=== PATIENT | female | born 1970 | race Two or more races ===

== ENCOUNTER 2024-11-11 09:55 | Outpatient (OUT) | payer MEDICAID, SELFPAY ==
--- NOTE | 2024-11-11 10:23 | XR_ITS ---
[place] [id number] Patient Name: BRADFORD RIVERA MRN: [id number] date: 1970 Sex: F Assigned Patient Location: LAB Current Patient Location: LAB Accession/Order Number: [id number] Exam Date: 11/11/2024 23:11 Report Date: 11/11/2024 23:12 At the request of: MATEO OROZCO MD Procedure: XR chest 2V Chest 2 views CLINICAL HISTORY: Chronic Cough, Dyspnea , Epigastric Pain COMPARISON: None FINDINGS: Heart normal size. Lungs are clear. No free air. XR/XR chest 2V IMPRESSION: NO ACUTE CARDIOPULMONARY ABNORMALITY. Impression dictated by: Dequan Lopez Jr., D.ORaymundo11/11/2024 11:12 PM Dictation Location: [facility]18 Electronically authenticated by: [id number] Y Date: 11/11/2024 23:12
[2024-11-11 10:32] LABS: Basophils Percent Auto 0.3 % (0.2-2.0); Eosinophils Absolute Auto 0.1 10^3/uL (0.0-0.7); Eosinophils Percent Auto 0.7 % (0.9-7.0); Hematocrit 40.9 % (36.0-48.0); Hemoglobin 13.3 g/dL (12.0-16.0); Immature Granulocytes Abs Auto 0.01 10^3/uL (0.00-0.03); Immature Granulocytes Pct Auto 0.1 % (0.0-0.5); Lymphocytes Absolute Auto 1.9 10^3/uL (1.2-3.8); Lymphocytes Percent Auto 27.6 % (20.5-60.0); Mean Corpuscular HGB Conc 32.5 g/dL (29.9-35.2); Mean Corpuscular Hemoglobin 28.1 pg (26.7-34.0); Mean Corpuscular Volume 86.5 fL (81.0-99.0); Mean Platelet Volume 10.1 fL (9.5-13.5); Monocytes Absolute Auto 0.3 10^3/uL (0.3-0.8); Monocytes Percent Auto 4.8 % (1.7-12.0); Neutrophils Absolute Auto 4.5 10^3/uL (1.4-6.5); Neutrophils Percent Auto 66.5 % (43.0-75.0); Platelet Count 243 10^3/uL (150-450); Red Blood Count 4.73 10^6/uL (4.20-5.40); Red Cell Distribution Width 12.9 % (11.0-15.0); White Blood Count 6.7 10^3/uL (4.0-11.0)
[2024-11-11 11:22] LABS: Alanine Aminotransferase 15 U/L (14-59); Albumin Globulin Ratio 1.1; Alkaline Phosphatase 63 U/L (46-116); Anion Gap 13.7; Aspartate Amino Transferase 16 U/L (15-37); BUN Creatinine Ratio 16.9; Bilirubin Total 0.3 mg/dL (0.2-1.0); Calcium 9.3 mg/dL (8.5-10.1); Carbon Dioxide 27.3 mmol/L (21.0-32.0); Chloride 105 mmol/L (98-107); Chol HDL Ratio 3.8; Cholesterol 195 mg/dL (<=200); Estimated GFR (African America >60 (>=60 mL/min/1.73m^2); Estimated GFR (Non-African Ame >60 (>=60 mL/min/1.73m^2); Free T3 3.02 pg/mL (2.18-3.98); Globulin 3.8 g/dL; Glucose 105 mg/dL (74-106); HDL Cholesterol 51 mg/dL (40-60); LDL Cholesterol Calculated 119.8 mg/dL; Sodium 142 mmol/L (136-145); Thyroid Stimulating Hormone 2.782 uIU/mL (0.358-3.740); Total Protein 7.8 g/dL (6.4-8.2); Triglycerides 121 mg/dL (<=150); VLDL CHOLESTEROL 24.2 mg/dL
[2024-11-11 14:40] LABS: Estimated Average Glucose 123 mg/dL; Glycohemoglobin A1C 5.9 % (4.5-6.2)
[2024-11-13 08:08] LABS: QuantiFERON-TB Gold Plus Negative (Negative)
== END 2024-11-11 09:56 | disposition home or self-care (01) ==
LOC: LAB 10:04
PROVIDERS: PCP Family Medicine; Visit Provider Family Medicine
DX: R05.3 Chronic cough (principal); R06.00 Dyspnea, unspecified; F32.9 Major depressive disorder, single episode, unspecified; R10.13 Epigastric pain; E78.5 Hyperlipidemia, unspecified; R73.09 Other abnormal glucose; D64.9 Anemia, unspecified; E55.9 Vitamin D deficiency, unspecified
CPT/HCPCS: 36415; 71046; 80053; 80061; 82306; 83036; 83540; 84436; 84443; 84481; 85025; 86480

== ENCOUNTER 2025-04-10 07:18 | Outpatient (OUT) | payer MEDICAID, SELFPAY ==
--- OUTSIDE RECORDS SUMMARY | 2012-11-10 12:00 | XMS_ITS | Encounter Summary ---
Author Organization [facility] Address [address] [place] [address] Care Team Providers Care Vault Clerk Name Role Phone Pcp, Edyta NETEZZA DEVELOPER Primary Care Provider Unavailabl e Source Comments In the event this information is protected by the Federal Confidentiality of Alcohol and Drug AbusePatient Records regulations: The Federal rules restrict any use of the information to criminally investigate or prosecute any alcohol or drug abuse patient.[facility] Encounter Details Date Type Department Care Team (Late st Contact Info) Description 11/10/2012 11:00 AM EST Hospital Encounter Gynecology [address] [address] Macarena Rai MD [address] [place] [address] Social History Tobacco Use Types Packs/Day Years [...] on filedocumented in this encounter Care Teams Vault Clerk Relationship Specialty Start Date End Date Pcp, No, NICOLA PCP - General 10/12/12 05/09/13 documented as of this encounter
--- OUTSIDE RECORDS SUMMARY | 2023-05-02 05:00 | XMS_ITS | Continuity of Care Document ---
Author Organization [facility] Address [address] [place] [address] Phone Care Team Providers Care Application Packaging Specialist Name Role Phone Tiffany RODGERS, Quinn Unavailable Unavailable Allergies, Adverse Reactions, Alerts Substance Reaction Status Criticality No Known Allergies Active No Inform ation Medications Medication Instructions Dosage Effective Dates (start - stop) Status Comments omeprazole 40 mg capsule,delayed release take 1 capsule by oral route every day before a meal 40 MG - No Longer Active Procedures Procedure Date Panoramic Film Oral Hygiene Instruction Limited Oral Eval Extract; Erupted Th/exposted Rt 015 Extract; Erupted Th/exposted Rt 015 Comp Oral Eval New/estab Patient 2014 Intraoral-complete Series (bw) 15 Advance Directives Directive Yes / No Effective Date File Name No Information Encounters Encounter Description Practice Location Reason(s) For Visit Diagnoses Date Provider Providers Copied on Encounter [facility], [address] [place] [address], [id number], tel:[phone] Dental Clinic DN (chief complaint) Encounter for screening for dental disorders Tiffany Teresaal. [address] [place] [address], [id number], [place]. tel:[phone] [facility], [address] [place] [address], [id number], tel:[phone] Dental Clinic Dental exam Ajay RODGERS Yvette. [address] [place], [place], [id number], [place]. tel:[phone] [facility], [address] [place], [place], [id number], [place] tel:[phone] Dental Clinic Dental exam Ajay DMD Yvetet. [address] [place] [address], [place], [id number], [place]. tel:[phone] Family History Family Member Type Diagnosis Age At Onset Mother Problem (finding) Alive and well Father Problem (finding) Alive and well Payers Payer name Insurance type Covered democrat ID Jack prieto(s) [employer] [place] [id number] Social History Type Description Quantity Date Captured Comments Alcohol Use Details Unknown Caffeine Use Details Unknown Tobacco Use Status Never smoked tobacco 2022 Smoking Status Never smoker Non-Smoking Tobacco Use Details : No Details Available : No Details Available Sex Female Sexual Orientation Straight or heterosexual Gender Identity Female Chief Complaint And Reason For Visit From encounter dated '05/02/2023 09:00'. DN (chief complaint) Reason For Referral Reason For Referral No Information Plan Of Treatment Date Type Action Status Goal Tdap Vaccine. Due on 2022 due Goal Colonoscopy. Due on due Goal Depression screening. Due on due Goal PRAPARE ASSESSMENT. Due on A due Goal FOBT. Due on due Goal Zoster vaccine (1st). Due on due Goal Tdap. Due on due Goal Mammogram. Due on due Goal Influenza vaccine. Due on due Goal Lipid panel. Due on 023 due History Of Present Illness Encounter Date Complaint History Of Prese nt Illness DN Functional Status Date Functional Assessmen t No Information Instructions Date Instruction Additional Infor mation No Information Assessments Type Assessment Date No Information Patient Care Teams Name Effective Dates (start - stop) Status Members No Information
--- OUTSIDE RECORDS SUMMARY | 2023-12-30 10:30 | XMS_ITS ---
Author Organization [facility] Address [address] [facility] [address] [facility] [place] [address] Care Team Providers Care Putty Worker Name Role Phone Ayah Willingham Primary Care Provider [phone] REASON FOR VISIT DISCUSS BLOOD WORK Social History Sex Assigned At : Social History Observation Description Sex Assigned At Female Encounters Encounter Location Date Provider Diagnosis [address] [place] [address] 12/30/2023 Ayah Willingham Plan Of Treatment No Information Progress Notes * MARIBEL RIVERA MINDOB:1970 (54 yo F)Acc No.[id number]:12/30/2023 Progress Notes Patient: MARIBEL WILKINSON Provider: Rakan Willingham CNP :1970 A ge:53 Y S ex:Female Date:12/30/2023 Address:[address] [place], [place] [id number] Subjective: * Chief Complaints: * 1 . DISCUSS BLOOD WORK. * Medical History: Objective: * Vitals: Assessment: Plan: * Treatment: * Images: * Electronic signature of Jennifer Willingham CNP on 04/10/2025 at 07:20 AM EDT Sign off status: Pending * Provider: Rakan Willingham CNP Date: 0 12/30/2023 Generated for Printi ng/Fareginaldog/eTransmitting on: 0 04/10/2025 07:20 AM EDT
--- OUTSIDE RECORDS SUMMARY | 2024-01-07 06:30 | XMS_ITS ---
Author Organization [facility] Address [address] [facility] [place] [place] [address] Care Team Providers Care Working Second Hand Name Role Phone Ayah Willingham Primary Care Provider [phone] REASON FOR VISIT well woman, go over labs Social History Sex Assigned At : Social History Observation Description Sex Assigned At Female Encounters Encounter Location Date Provider Diagnosis [facility] [address] [facility] [address] 01/07/2024 Ayah Willingham Plan Of Treatment No Information Progress Notes * MARIBEL RIVERA MINDOB:1970 (54 yo F)Acc No.[id number]:01/07/2024 Progress Notes Patient: MARIBEL WILKINSON Provider: aRkan Willingham CNP :1970 A ge:53 Y S ex:Female Date:01/07/2024 Address:[address] [place], [place] [id number] Subjective: * Chief Complaints: * 1 . Well woman, go over labs. * Medical History: Objective: * Vitals: Assessment: Plan: * Treatment: Care Plan: * Problems: * Images: * Electronic signature of Jennifer Willingham CNP on 04/10/2025 at 07:21 AM EDT Sign off status: Pending * Provider: Rakan Willingham CNP Date: 0 01/07/2024 Generated for Shania keyes/Jailene/eTransmitting on: 0 04/10/2025 07:21 AM EDT
--- OUTSIDE RECORDS SUMMARY | 2025-03-05 10:14 | XMS_ITS ---
Author Organization [facility] [place] Address [address] [place] [address] Care Team Providers Care Flat Machine Cutter Name Role Phone JosePaulino negrete Primary Care Provider Reason For Referral Diagnosis 1 Polyp of descending colon, unspecified type (K63.5) Referral Organization [facility] Referring Provider First Name Paulino Referring Provider Last Name Wu [facility] Referred Provider Juventino Bowen Referred Provider Specialty General Surg marcia Referral Priority Routine REASON FOR VISIT Colonoscopy Encounters Encounter Location Date Provider Diagnosis [facility] [address] [place] [address] 03/05/2025 Paulino Washburn Polyp of descending colon, unspecified type K63.5 Assessments Encounter Date Diagnosis (ICD Code) Assessment Notes Treatment Notes Treatment Clinical Notes Section Notes 03/05/2025 Polyp of descending colon, unspecified type (ICD-10 - K63.5) Plan Of Treatment Referrals Referral Date Details 03/10/2025 03/10/2025, Juventino Bowen Next Appt Details Provider Name:Paulino Washburn, 01:45:00 PM, [address] [place], [address], Progress Notes * Alejandra CRISTOBALinDOB:1970 (54 yo F)Acc No.[id number]:03/05/2025 Patient: Anya CHRISTYMaria Luisapeter :1970 A ge:54 Y S ex:Female Address:[address] [place] [address], [address] Subjective: * Chief Complaints: * C olonoscopy * Medical History: * Surgical History: * Hospitalization/Major Diagno stic Procedure: * Medications: Objective: * Vitals: * Physical Examination: Assessment: * Assessment: 1. P olyp of descending colon, unspecified type - K63.5 (Primary) Plan: * Treatment: * Procedure Codes: * true * Date: Generated for Shania keyes/Jailene/eTransmitting on: 0 04/10/2025 07:21 AM EDT Consultation Request Notes Referral Date Referring Provider Referred Provider Not es 03/10/2025 Paulino Washburn Michael
--- OUTSIDE RECORDS SUMMARY | 2025-04-08 09:00 | XMS_ITS ---
Author Organization [facility] in [place] Address [address] [place] [address] Care Team Providers Care Industry Analyst Name Role Phone Paulino Washburn Primary Care Provider Allergies No Known Allergies REASON FOR VISIT productive cough- yellow, pain in chest when breath, chest pressure- not sleeping well, Took Ibuprofen this AM Medications Medication SIG (Take, Route, Frequency, Duration) Notes Start Date End Date Status predniSONE 20 MG 2 tablets Orally Onc e a day for 5 days 04/08/2025 Active Protonix 40 MG 1 tablet Orally Once a day for 30 days 11/10/2024 Active traZODone HCl 50 MG TAKE 1 TABLET BY MARIANO TH AT BEDTIME Oral for 30 Days Active levoFLOXacin 750 MG 1 tablet Orally Once a day for 10 day(s) 04/08/2025 Active Breo Ellipta 100-25 MCG/ACT 1 puff Inhal ation Once a day 11/10/2024 Active Aspirin 81 81 MG 1 tablet Orally Once a day for 30 day(s) 04/08/2025 Active FLUoxetine HCl 20 MG Oral for 30 Days Active ARIPiprazole 30 MG Oral for 30 Days Active Social History Tobacco Use: Social History Observation Description Date Details (start date - stop date) Never Smoker NA - NA Tobacco Control (Standard) Question Answer Notes Tobacco use: Nonsmoker Vital Signs Blood pressure systolic 124 mm Hg 04/08/20 25 Blood pressure diastolic 80 mm Hg 025 Height 62 in 04/08/2025 Weight 130.2 lbs 04/08/2025 BMI 23.81 kg/m2 04/08/2025 Oximetry 98 % 04/08/2025 Procedures Procedure Date Ordered Date Performed Result Body Sit e CARDIO Stress Test - Cardiolite 04/08/2025 N/A Encounters Encounter Location Date Provider [facility] [address] [place] [address] 04/08/2025 Paulino Washburn Acute bronchitis J20 .9 and Chest pain R07.9 Assessments Encounter Date Diagnosis (ICD Code) Assessment Notes Treatment Notes Treatment Clinical Notes Section Notes 04/08/2025 Acute bronchitis (ICD-10 - J20.9) 04/08/2025 Chest pain (ICD-10 - R07.9) stared on asa a dya and arraing ing stress testing Plan Of Treatment Medication Medication Name Sig Start Date Stop Date Notes predniSONE 20 MG 2 tablets Orally Once a day for 5 days levoFLOXacin 750 MG 1 tablet Orally Once a day for 10 day(s) 04/08/2025 Aspirin 81 81 MG 1 tablet Orally Once a day for 30 day(s) 04/08/2025 Treatment Notes Assessment Notes Chest pain stared on asa a dya and arraing ing stress testing Pending Test Test Name Order Date CARDIO Stress Test - Cardiolite 04/08/20 25 High Sensitivity Troponin 04/08/2025 BNP 04/08/2025 CBC AUTO DIFF 04/08/2025 PROF 14(COMP METB) 04/08/2025 THYROID PANEL (T4/TSH/FREE T3) Next Appt Details Provider Name:Paulino Washburn, 01:45:00 PM, [address] [place], [address], Progress Notes * Alejandra CRISTOBALinDOB:1970 (54 yo F)Acc No.[id number]:04/08/2025 UNLOCKED PROGRESS NOTE Progress Note Patient: Stefany WILKINSON Provider: Priyanka Washburn ([facility])MD :1970 A ge:54 Y S ex:Female Date:04/08/2025 Address:[address] [place], [place] [id number] Check In:01:04 PM ESTCheck O ut:02:06 PM EST Subjective: * Chief Complaints: * 1 . Productive cough- yellow, pain in chest when breath, chest pressure- not sleeping well. 2. Took Ibuprofen this AM. * HPI: G eneral: cough with chest pain wth anreaditing into back - yellpow sputum started last week - prog getteoing worse. * ROS: E ENT: hearing changes d enies. v isual changes d enies.?non-healing mouth sores d enies. s wollen glands or neck lumps d enies. h oarseness d enies. s ore throat d enies. d ifficulty swallowing d enies. n ose bleeds d enies. n ellis congestion d enies. e ar ache d enies. e ar discharge?denies. r inging in ears d enies. l ight sensitivity d enies. e ye pain d enies. b lurring d enies. e ye irritation d enies. d ouble vision d enies.?vision loss d enies. G eneral/Constitutional: Sweats: D enies. F atigue d enies. S leep problems d enies. A norexia d enies. M alaise d enies. W eight loss d enies.?Fatigue or Weakness d enies. F ever or Chills d enies. C ardiovascular: Shortness of Breath w/lying flat d enies. L ightheadedness/dizziness d enies. C hest tightness/ heavy pressure d enies. S welling of legs, ankles, or feet d enies. W aking up with shortness of breath d enies. C hest pain denies. P alpitations d enies. W eight gain d enies. R espiratory: Chronic or frequent cough d enies. C oughing up blood?denies. D ifficulty breathing d enies. P roductive cough d enies. S noring?denies. S hortness of breath that awakens from sleep (PND) d enies. C hest pain d enies. S putum production d enies. W heezing d enies. M usculoskeletal: Joint pain d enies. J oint Fluid d enies. B ack pain d enies. K nee pain d enies. N mitesh pain d enies. J oint Stiffness d enies. M uscle cramps d enies. W eakness of muscles d enies. A rthritis d enies. M uscle aches d enies. P ain in shoulder(s) d enies. S wollen joints d enies. * Medical History: M edical History Verified. * Surgical History: D enies Past Surgical History. * Hospitalization/Major Diagno stic Procedure: D enies Past Hospitalization. * Family History: M other: alive, bipolar, depression. * Social History: T obacco Use: T obacco Control (Standard) T obacco use: N onsmoker * Medications: T aking ARIPiprazole 30 MG Tablet Oral , Taking Breo Ellipta(Fluticasone Furoate-Vilanterol) 100-25 MCG/ACT Aerosol Powder Breath Activated 1 puff Inhalation Once a day , Taking FLUoxetine HCl 20 MG Capsule Oral , Taking Protonix(Pantoprazole Sodium) 40 MG Tablet Delayed Release 1 tablet Orally Once a day , Taking traZODone HCl 50 MG Tablet TAKE 1 TABLET BY MOUTH AT BEDTIME Oral , Discontinued predniSONE 10 MG Tablet 5 tabs per day for 3 days, 4 tabs per day for 3 ays, 3 tabs perday for 3 days, 2 tabs per day for 3 days, 1 tab a day for 3 days, 1/2 tab a day for 4 days Orally Once a day , Medication List reviewed and reconciled with the patient * Allergies: N .K.D.A. Objective: * Vitals: W t:130.2lbs, Ht: 62 in, BP:124/80mm Hg, BMI:23.81Index, Oxygen sat %:98%, Ht-cm: 157.48 cm, Wt-k.06 kg. * Examination: P hysical Exam: GENERAL: w ell developed, well nourished, in no acute distress. HEAD: n ormocephalic/atraumatic. EYES: p upils equal, round and reactive to light, conjunctivae and sclerae normal. EARS: n o deformity or lesion of external ear, canals and TM appear normal bilaterally, TM's intact, not inflamed with normal light reflex, hearing grossly normal to conversational speech. NOSE: n o deformity, discharge, inflammation, or lesions.? MOUTH: m ucous membranes moist, normal oropharynx and posterior pharynx without lesions or exudates, tongue normal, dentition normal. NECK: n mitesh supple, no masses or palpable cervical nodes, trachea midline, thyroid without nodules, masses, tenderness, or enlargement. CHEST: n o chest wall deformity, no chest wall tenderness.? LUNGS: n ormal respiratory effort and clear to auscultation, no wheezes, rales, or rhonchi, good air exchange. CARDIO: r egular rate and rhythm, normal S1 and S2, nor murmur, rub, or gallop. PULSES: n ormal capillary refill. ABDOMEN: s oft, non-distended, non-tender, no masses. MUSCULOSKELETAL: n o deformity or scoliosis noted, normal range of motion, joints normal, no erythema, edema, effusion, or ecchymosis. EXTREMITY: n o clubbing, cyanosis, edema, or deformity with normal ROM in both upper and lower bilateral extremities. NEUROLOGIC: g rossly normal. SKIN: n o rashes, ulcerations, or suspicious lesions. LYMPH NODES: n o cervical adenopathy, nodes normal. MENTAL STATUS: a lert and oriented x3, normal mood and affect. Assessment: * Assessment: 1. A cute bronchitis - J20.9 (Primary) 2 . C hest pain - R07.9 ? Plan: * Treatment: 2.?Chest pain?Procedure: CARDIO Stress Test - Cardiolite* abn ecg with posssible ant w all ischemia Notes: stared on asa a dya and arraing ing stress testing??3.?Others? Start levoFLOXacin Tablet, 750 MG, 1 tablet, Orally, Once a day, 10 day(s), 10;?Start predniSONE Tablet, 20 MG, 2 tablets, Orally, Once a day, 5 days, 10 Tablet.?? * Procedures: P osible ant wall ischemia with T wave inversion and 2/3 lead for inf wall ischemia. * * Electronic signature of Paulino Washburn MD, [phone] on 04/10/2025 at 07:21 AM EDT Sign off status: Pending Visit Status: C HK (Check Out) * Provider: Priyanka Washburn ([facility])MD Date: 0 04/08/2025 Generated for Printi ng/Faxing/eTransmitting on: 0 04/10/2025 07:21 AM EDT History and Physical Notes * HPI (History of Present Illness) Category Sub-Category Detail Notes Category Not es General cough with chest pain wth anreaditing into back - yellpow sputum started last week - prog getteoing worse Examination Category Sub-Category Detail Notes Category Not es Physical Exam GENERAL: well developed, well nourished, in no acute distress HEAD: normocephalic/atraum atic EYES: pupils equal, round and reactive to light, conjunctivae and sclerae normal EARS: no deformity or lesi on of external ear, canals and TM appear normal bilaterally, TM's intact, not inflamed with normal light reflex, hearing grossly normal to conversational speech NOSE: no deformity, discha rge, inflammation, or lesions MOUTH: mucous membranes lash[address] st, normal oropharynx and posterior pharynx without lesions or exudates, tongue normal, dentition normal NECK: neck supple, no mass es or palpable cervical nodes, trachea midline, thyroid without nodules, masses, tenderness, or enlargement CHEST: no chest wall deform ity, no chest wall tenderness LUNGS: normal respiratory e ffort and clear to auscultation, no wheezes, rales, or rhonchi, good air exchange CARDIO: regular rate and rhy thm, normal S1 and S2, nor murmur, rub, or gallop PULSES: normal capillary ref ill ABDOMEN: soft, non-distended, non-tender, no masses RECTAL: MUSCULOSKELETAL: no deformity or scol iosis noted, normal range of motion, joints normal, no erythema, edema, effusion, or ecchymosis EXTREMITY: no clubbing, cyanosi s, edema, or deformity with normal ROM in both upper and lower bilateral extremities NEUROLOGIC: grossly normal SKIN: no rashes, ulceratio ns, or suspicious lesions LYMPH NODES: no cervical adenopat hy, nodes normal MENTAL STATUS: alert and oriented x 3, normal mood and affect
--- OUTSIDE RECORDS SUMMARY | 2025-04-10 07:21 | XMS_ITS | CCD ---
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 Name Role Phone [facility] Primary Care Provider [phone] CLAUDETTE Willingham Attending Pr ovider [facility] Primary Care Provider [phone] CLAUDETTE Willingham Attending Pr ovider MD Markus Luo Attending Provider Alissa Lopez Unavailable [facility] Primary Care Provider CLAUDETTE Willingham Attending Pr ovider MD Yossi Marcial Attending Provider [phone] Michael [facility] Namita Haque Emergency Provider [phone] [facility] Primary Care Provider [phone] NICOLA Briceño Attending Provider [phone] MD Yossi Marcial Attending Provider FRANSISCA MENDEZ Attending Unavailable GENERIC PROVIDER, NO ASSIGNED PCP Primary Care Unavailable MD Yossi Marcial Attending Provider MD Yossi Marcial Attending Provider MD Yossi Marcial Attending Provider DO Ranjan Brown Emergency Provider NO FAMILY, PHYSICIAN Primary Care Provider Unava ilable MD Yossi Marcial Admit Provider MD Yossi Marcial Attending Provider Generic Provider , No Assigned Pcp Primary Car e Provider Unavailable Kevin [facility] Emergency Provider NO FAMILY, PHYSICIAN Primary Care Provider Unava ilable Yossi Marcial MD Admit Provider Yossi Marcial MD Attending Provider Briceñopebbles PETERSEN Melvi Priyanka Attending Provider [phone] [facility] Primary Care Provider Yossi Marcial Admitting Unavailab le Yossi Marcial Attending Unavailab le [facility] Primary Care Unavaila ble Briceño, Melvi D Admitting Unavailable NO FAMILY, PHYSICIAN Primary Care Unavailable Briceño, Melvi D Attending Unavailable Briceño, Melvi D Admitting Unavailable NO FAMILY, PHYSICIAN Primary Care Unavailable Briceño, Melvi D Attending Unavailable Briceño, Melvi D Attending Unavailable Briceño, Melvi D Admitting Unavailable [facility] Primary Care Unavaila ble Yossi Marcial Attending Unavailab le Yossi Marcial Admitting Unavailab le NO FAMILY, PHYSICIAN Primary Care Unavailable Briceño, Melvi D Attending Unavailable Briceño, Melvi D Admitting Unavailable [facility] Primary Care Unavaila ble Briceño, Melvi D Admitting Unavailable [facility] Primary Care Unavaila ble Briceño, Melvi D Attending Unavailable Briceño, Melvi D Attending Unavailable Briceño, Melvi D Admitting Unavailable [facility] Primary Care Unavaila ble Bullimore, Namita E Admitting Unavailable Bullimore, Namita E Attending Unavailable [facility] Primary Care Unavaila ble Briceño, Melvi D Admitting Unavailable NO FAMILY, PHYSICIAN Primary Care Unavailable Briceño, Melvi D Attending Unavailable Allergies Allergy Classification Reported Allergen(s) Allergy Type Date of Onset Reaction(s) Facility (15 sources) Penicillins; Translations: [PENICILLINS] Allergy to substance 9 [facility] (1 source) Penicillin G Drug Allergy passed out [facility] Other (10 sources) Penicillin G Procaine; Translations: [penicillin G procaine] Allergy to substance passed out [facility] Medications Current Medications Medication Drug Class(es) Dates Sig (Normalized) Sig (Original) acetaminophen 325 mg oral tablet (1 source) Start: 04-27-2024 End: 05-07-2024 take 2 tablets by mouth every six hours for pain acetaminophen (Tylenol) 325 mg tablet Indications: COVID Take 2 tablets (650 mg) by mouth every 6 hours if needed for mild pain (1 - 3) for up to 10 days. 30 tablet 04/27/2024 05/07/2024 Active ARIPiprazole 2 mg oral tablet (3 sources) Atypical Antipsychotic Start: 06-20-2024 take 1 tablet by mouth once daily at bedtime Aripiprazole 2 mg Tablet Active 2 MG PO Daily at bedtime June 19, 2024 11:00pm doxepin hydrochloride 10 mg oral capsule (1 source) Tricyclic Antidepressant Start: 01-15-2022 take 1 capsule by mouth every twenty-four hours Doxepin HCl 10 MG 1 capsule at bedtime Orally Once a day for 30 day(s) January, Active FLUoxetine 20 mg oral capsule (20 sources) Serotonin Reuptake Inhibitor Start: 10-19-2019 take 1 capsule by mouth once daily Fluoxetine 20 mg capsule Active 20 MG PO Daily October 19, 2019 12:00am Start: 01-01-2019 End: 01-01-2019 Fluoxetine 20 mg capsule Dis continued December 31, 2018 11:00pm January 01, 2019 8:57am Start: 01-01-2019 End: 01-01-2019 Fluoxetine Discontinued Apri l 2018 12:00am January 01, 2019 9:57am ibuprofen 600 mg oral tablet (9 sources) Nonsteroidal Anti-inflammatory Drug Start: 04-27-2024 take 1 tablet by mouth every eight hours for pain ibuprofen 600 mg tablet Indications: COVID Take 1 tablet (600 mg) by mouth every 8 hours if needed for mild pain (1 - 3) or fever (temp greater than 38.0 C). 30 tablet 04/27/2024 Active Start: 04-04-2024 End: 06-17-2024 take 1 tablet by mouth every six hours as needed for pain Ibuprofen 600 mg tablet Discontinued 600 MG PO Q6H as needed for fever or pain April 03, 2024 11:00pm June 17, 2024 8:11pm lidocaine 0.05 mg/mg medicated patch (8 sources) Antiarrhythmic, Amide Local Anesthetic Start: 04-04-2024 apply 1 dose topically once daily as needed for pain Lidocaine 5 % adhesive patch,medicated Active 1 PATCH TOPICAL Daily as needed for pain April 03, 2024 11:00pm leave on most painful area for up to 12 hrs ondansetron 4 mg disintegrating oral tablet (2 sources) Serotonin-3 Receptor Antagonist Start: 04-27-2024 End: 05-01-2024 take 1 tablet by mouth every eight hours for nausea ondansetron ODT (Zofran-ODT) 4 mg disintegrating tablet Indications: COVID Take 1 tablet (4 mg) by mouth every 8 hours if needed for vomiting or nausea for up to 4 days. 12 tablet 04/27/2024 05/01/2024 Active Start: 04-27-2024 End: 04-27-2024 4 mg, intravenous, Once, On Sat04/27/24 at 0115, For 1 dose, When administering via IV Push, administer over 3-5 minutes. traZODone hydrochloride 50 mg oral tablet (12 sources) Serotonin Reuptake Inhibitor Start: 10-19-2019 Trazodone 50 mg tablet Active 25 MG PO Bedtime as needed for insomnia October 19, 2019 12:00am Start: 10-19-2019 take 25 mg by mouth at bedtime Trazodone Active 25 MG PO Bedtime October 19, 2019 1:00am Start: 10-19-2019 Trazodone Acti ve TABLET October 19, 2019 1:00am Completed/Discontinued Medications Medication Drug Class(es) Dates Sig (Normalized) Sig (Original) calcium chloride 0.0014 meq/ml / potassium chloride 0.004 meq/ml / sodium chloride 0.103 meq/ml / sodium lactate 0.028 meq/ml injectable solution (1 source) Start: 04-27-2024 End: 04-27-2024 1,000 mL, intravenous, at 999 mL/hr, Administer over 1 Hours, Once, On Sat04/27/24 at 0000, For 1 dose dicyclomine hydrochloride 20 mg oral tablet (12 sources) Anticholinergic Start: 01-20-2019 End: 06-17-2024 take 1 tablet by mouth twice daily Dicyclomine 20 mg Tablet Discontinued 20 MG PO Twice daily January 19, 2019 11:00pm June 17, 2024 8:12pm 12 hr hyoscyamine sulfate 0.375 mg extended release oral tablet (1 source) Start: 06-29-2020 take 1 tablet by mouth every twelve hours Hyoscyamine Sulfate ER 0.375 MG 1 tablet Orally every 12 hrs for 30 day(s) Jun, Not-Taking 1 ml ketorolac tromethamine 30 mg/ml injection (1 source) Nonsteroidal Anti-inflammatory Drug, Cyclooxygenase Inhibitor Start: 04-27-2024 End: 04-27-2024 15 mg, intravenous, Once, On Sat04/27/24 at 0000, For 1 dose [facility] (1 source) [facility] Not-Taking omeprazole 40 mg delayed release oral capsule (13 sources) Proton Pump Inhibitor Start: 10-30-2019 take 1 capsule by mouth every twenty-four hours Omeprazole 40 MG 1 capsule Orally Once a day for 30 day(s) Oct, Not-Taking Start: 10-19-2019 take 1 capsule by mo [facility] once daily Omeprazole 20 mg capsule,delayed release(DR/EC) Active 20 MG PO Daily October 19, 2019 12:00am Start: 10-19-2019 Omeprazole Act kaela October 19, 2019 1:00am sucralfate 1000 mg oral tablet (13 sources) Aluminum Complex Start: 10-19-2019 End: 06-17-2024 Sucralfate 1 gram tablet Discontinued TABLET October 19, 2019 12:00am June 17, 2024 8:11pm Start: 10-19-2019 End: 06-17-2024 Sucralfate Discontinued TABL ET October 19, 2019 1:00am June 17, 2024 9:11pm Start: 07-28-2019 take 1 tablet by ying three times daily Sucralfate 1 GM 1 tablet on an empty stomach Orally THREE TIMES A DAY for 30 day(s) Jul, Not-Taking Problems Active Problems Problem Classification Problem Date Documented Da te Episodic/Chronic Abdominal pain (20 sources) Nonspecific abdominal pain; Translations: [Unspecified abdominal pain] 05-15-2019 Episodic Anxiety disorders (3 sources) Anxiety; Translations: [Anxiety disorder, unspecified] 06-18-2024 Chronic Esophageal disorders (1 source) Gastroesophageal reflux disease; Translations: [Gastro-esophageal reflux disease without esophagitis] Chronic Gastritis and duodenitis (1 source) Chronic gastritis; Translations: [Unspecified chronic gastritis without bleeding] Chronic Genitourinary symptoms and ill-defined conditions (6 sources) Pyuria; Translations: [Pyuria] 06-18-2024 Episodic Immunizations and screening for infectious disease (1 source) Contact with and (suspected) exposure to other viral communicable diseases Episodic Malaise and fatigue (1 source) Fatigue; Translations: [Chronic fatigue, unspecified] Chronic Mood disorders (14 sources) Mood disorder; Translations: [Unspecified mood [affective] disorder] Onset: 4 06-18-2024 Chronic Other disorders of stomach and duodenum (12 sources) Disorder of function of stomach; Translations: [Disease of stomach and duodenum, unspecified] 10-19-2019 Episodic Other female genital disorders (1 source) Female genital organ symptoms; Translations: [Unspecified condition associated with female genital organs and menstrual cycle] Episodic Other gastrointestinal disorders (1 source) Irritable bowel syndrome; Translations: [Other irritable bowel syndrome] Chronic Other gastrointestinal disorders (12 sources) Diarrhea; Translations: [Diarrhea, unspecified] 01-01-2019 Episodic Other gastrointestinal disorders (1 source) Constipation; Translations: [Constipation, unspecified] Episodic Schizophrenia and other psychotic disorders (7 sources) Paranoid delusion; Translations: [Delusional disorders] Onset: 4 06-18-2024 Chronic Unclassified (1 source) Low back pain, unspecified; Translations: [Low back pain, unspecified] Onset: 4 Viral infection (3 sources) COVID-19; Translations: [COVID-19] Onset: 4 Past or Other Problems Problem Classification Problem Date Documented Da te Episodic/Chronic Sprains and strains (10 sources) Low back strain; Translations: [Strain of muscle, fascia and tendon of lower back, initial encounter] Onset: 08-13-2024 04-04-2024 Episodic Viral infection (1 source) Disease caused by 2019-nCoV; Translations: [COVID-19] 04-27-2024 Episodic Results Test Name Value Interpretation Reference Range Facility ECG 12 lead ECGon 06-18-2024 ECG 12 lead ECG [facility] [address] [place] [address] [place] [address] Electrocardiograph Report Signed Patient: Patito Cristobal MR#: [id number] 8 : 1970 Acct:[id number] Age/Sex: 53 / F ADM Date: 06/17/24 Loc: Room: [address] [place] [address] Type: ADM IN Attending Dr: Yossi Marcial MD Ordering Provider: Yossi Marcial MD Date of Service: 06/18/2407/02/500 ECG/ECG 12 lead ECG: ANTIPSYCHOTIC THERAPY Copies to: Test Reason : Blood Pressure : */* mmHG Vent. Rate : 84 BPM Atrial Rate : 84 BPM P-R Int : 108 ms QRS Dur : 92 ms QT Int : 386 ms P-R-T Axes : 55 82 269 degrees QTcB Int : 456 ms Sinus rhythm with short MI Cannot rule out Inferior infarct , age undetermined Abnormal ECG Confirmed by Ivette Avendaño ([id number]) on 06/19/2024 10:21:04 AM Referred By: Electronically Signed By: Ivette Avendaño Transcribed By: MUS Signed By Ivette Avendaño MD 4 1021 Normal [facility] Alanine aminotransferase [En zymatic activity/volume] in Serum or PlasmaOrdered By: Ranjan Brown on 06-17-2024 ALT [Catalytic activity/Vol] 13 U/L Normal [facility] Comment on above: Performed By: #### C MP, ETOH, CBC #### [address] ALT [Catalytic activity/Vol] Alanine aminotransferase [Enzymatic activity/volume] in Serum or Plasma [facility] Albumin [Mass/volume] in Ser um or Plasma by Bromocresol green (BCG) dye binding methoOrdered By: Ranjan Brown on 06-17-2024 Albumin BCG dye [Mass/Vol] 4.5 g/dL 3.5-5.7 [facility] Albumin BCG dye [Mass/Vol] Albumin [Mass/volume] in Serum or Plasma by Bromocresol green (BCG) dye binding metho 3.5-5.7 [facility] Alkaline phosphatase [Enzyma tic activity/volume] in Serum or PlasmaOrdered By: Ranjan Brown on 06-17-2024 ALP [Catalytic activity/Vol] 44 U/L Normal 34-104 [facility] Comment on above: Performed By: #### C MP, ETOH, CBC #### [address] ALP [Catalytic activity/Vol] Alkaline phosphatase [Enzymatic activity/volume] in Serum or Plasma 34-104 [facility] Amphetamine Screen Ql (U)Ord ered By: Ranjan Brown on 06-17-2024 Amphetamines Ql (U) Amphetamines screen Negativ e [facility] Amphetamines Ql (U) Negative Negative [facility] Appearance of UrineOrdered B y: Ranjan Brown on 06-17-2024 Appearance (U) Urine appearance Clear [facility] Aspartate aminotransferase [ Enzymatic activity/volume] in Serum or PlasmaOrdered By: Ranjan Brown on 06-17-2024 AST [Catalytic activity/Vol] 16 U/L Normal 13-39 [facility] Comment on above: Performed By: #### C MP, ETOH, CBC #### [address] AST [Catalytic activity/Vol] Aspartate aminotransferase [Enzymatic activity/volume] in Serum or Plasma 13 [facility] Automated basophil %Ordered By: Ranjan Brown on 06-17-2024 Basophils/100 WBC (Bld) 1.3 % Normal . [facility] Comment on above: Performed By: #### C MP, ETOH, CBC #### [address] Automated basophil countOrde red By: Ranjan Brown on 06-17-2024 Basophils (Bld) [#/Vol] 0.1 10*3/uL Normal 0.0-0.2 [facility] Comment on above: Result Comment: PERF ORMED BY: [place] [address] PATHOLOGIST FINANCIAL REPORTING MANAGER ELPIDIO DC M.D. Performed By: #### C MP, ETOH, CBC #### [address] Automated blood monocyte cou ntOrdered By: Ranjan Brown on 06-17-2024 Monocytes (Bld) [#/Vol] 0.4 10*3/uL Normal 0.0-0.8 [facility] Comment on above: Performed By: #### C MP, ETOH, CBC #### [address] Automated eosinophil %Ordere d By: Ranjan Brown on 06-17-2024 Eosinophils/100 WBC (Bld) 1.2 % Normal . [facility] Comment on above: Performed By: #### C MP, ETOH, CBC #### [address] Automated eosinophil countOr dered By: Ranjan Brown on 06-17-2024 Eosinophils (Bld) [#/Vol] 0.1 10*3/uL Normal 0.0-0.45 [facility] Comment on above: Performed By: #### C MP, ETOH, CBC #### [address] Automated monocyte %Ordered By: Ranjan Brown on 06-17-2024 Monocytes/100 WBC (Bld) 4.7 % Normal . [facility] Comment on above: Performed By: #### C MP, ETOH, CBC #### [address] Automated neutrophil %Ordere d By: Ranjan Brown on 06-17-2024 Neutrophils/100 WBC (Bld) 61.0 % Normal . [facility] Comment on above: Performed By: #### C MP, ETOH, CBC #### [address] Bacteria [Presence] in Urine by AutomatedOrdered By: Ranjan Brown on 06-17-2024 Bacteria Auto Ql (U) Rare [HPF] None Seen [facility] Bacteria Auto Ql (U) Bacteria [Presence] in Urine by Automated None Seen [facility] Barbiturates [Presence] in U rine by Screen methodOrdered By: Ranjan Brown on 06-17-2024 Barbiturates Screen Ql (U) Negative Negative [facility] Barbiturates Screen Ql (U) Barbiturates [Presence] in Urine by Screen method Negative [facility] Basophils Auto (Bld) [#/Vol] Ordered By: Ranjan Brown on 06-17-2024 Basophils (Bld) [#/Vol] Automated basoph il count 0.0-0.2 [facility] Basophils/100 WBC Auto (Bld) Ordered By: Ranjan Brown on 06-17-2024 Basophils/100 WBC (Bld) Automated basophil % . [facility] Benzodiazepines Screen Ql (U )Ordered By: Ranjan Brown on 06-17-2024 Benzodiazepines Ql (U) Negative Negative [facility] Benzodiazepines Ql (U) Benzodiazepines [Presence] in Urine by Screen method Negative [facility] Benzoylecgonine [Presence] i n Urine by Screen methodOrdered By: Ranjan Brown on 06-17-2024 Benzoylecgonine Screen Ql (U) Negative Negative [facility] Benzoylecgonine Screen Ql (U) Benzoylecgonine [Presence] in Urine by Screen method Negative [facility] Bilirubin Test strip Ql (U)O rdered By: Ranjan Brown on 06-17-2024 Bilirubin Ql (U) Negative Negative [facility] Bilirubin Ql (U) Bilirubin.total [Presence] in Urine by Test strip Negative [facility] Bilirubin.total [Mass/volume ] in Serum or PlasmaOrdered By: Ranjan Brown on 06-17-2024 Bilirubin [Mass/Vol] 0.3 mg/dL Normal 0.3-1.0 [facility] Comment on above: Performed By: #### C MP, ETOH, CBC #### [address] Bilirubin [Mass/Vol] Bilirubin.total [Mass/volume] in Serum or Plasma 0.3-1.0 [facility] Calcium [Mass/volume] in Ser um or PlasmaOrdered By: Ranjan Brown on 06-17-2024 Calcium [Mass/Vol] 9.7 mg/dL Normal 8.6-10.3 [facility] Comment on above: Performed By: #### C MP, ETOH, CBC #### [facility] [address] Calcium [Mass/Vol] Calcium [Mass/volume ] in Serum or Plasma 8.6-10.3 [facility] Cannabinoids [Presence] in U rine by Screen methodOrdered By: Ranjan Brown on 06-17-2024 Cannabinoids Screen Ql (U) Negative Negative [facility] Comment on above: These are unconfirme d results and should not be used for legal purposes. Drug Cut-Off Concentration: AMPH 1000 ng/mL CORI 200 ng/mL KLEBER 200 ng/mL COCM 300 ng/mL OP 300 ng/mL PCP 25 ng/mL THC 20 ng/mL Cannabinoids Screen Ql (U) Cannabinoids [Presence] in Urine by Screen method Negative [facility] Comment on above: These are unconfirme d results and should not be used for legal purposes. Drug Cut-Off Concentration: AMPH 1000 ng/mL CORI 200 ng/mL KLEBER 200 ng/mL COCM 300 ng/mL OP 300 ng/mL PCP 25 ng/mL THC 20 ng/mL Carbon dioxide, total [Moles /volume] in Serum or PlasmaOrdered By: Ranjan Brown on 06-17-2024 CO2 [Moles/Vol] 26.1 mmol/L Normal 21.0-31.0 [facility] Comment on above: Performed By: #### C MP, ETOH, CBC #### [facility] [address] [place] [id number] [facility] CO2 [Moles/Vol] Carbon dioxide, tota l [Moles/volume] in Serum or Plasma 21.0-31.0 [facility] Chloride [Moles/volume] in S raegan or PlasmaOrdered By: Ranjan Brown on 06-17-2024 Chloride [Moles/Vol] 104 mmol/L Normal 98-107 [facility] Comment on above: Performed By: #### C MP, ETOH, CBC #### [facility] [address] [place] [id number] [facility] Chloride [Moles/Vol] Chloride [Moles/volume] in Serum or Plasma 98-107 [facility] Cholesterol [Mass/volume] in Serum or PlasmaOrdered By: Yossi Marcial on 06-17-2024 Cholesterol [Mass/Vol] 206 mg/dL High 140-200 [facility] Comment on above: Chol less than 200 m g/dl low riskChol 201-239 mg/dl borderline riskChol 240 mg/dl and greater high risk Order Comment: AUNDREA Ro Comment USE BLOOD OBTAINED IN ED PLEASE Result Comment: Chol less than 200 mg/dl low risk Chol 201-239 mg/dl borderline risk Chol 240 mg/dl and greater high risk Performed By: #### L IPID, TSH3 [id number], [id number] #### [facility] [address] Cholesterol [Mass/Vol] Cholesterol [Mass/volume] in Serum or Plasma High 140-200 [facility] Comment on above: Chol less than 200 m g/dl low riskChol 201-239 mg/dl borderline riskChol 240 mg/dl and greater high risk Cholesterol in HDL [Mass/vol ume] in Serum or PlasmaOrdered By: Yossi Marcial on 06-17-2024 Cholesterol in HDL [Mass/Vol] Serum or plasma high density lipoprotein (HDL) cholesterol measurement 23-92 [facility] Comment on above: HDL CHOL ATP-III CLA SSIFICATION Cardiovascular RiskHDL > or equal to 60 mg/dL LOWHDL < 40 mg/dL HIGH Cholesterol in LDL Calc [Mas s/Vol]Ordered By: Yossi Marcial on 06-17-2024 Cholesterol in LDL [Mass/Vol] 134 mg/dL High 0-100 [facility] Comment on above: LDL ATP III CLASSIFI CATIONLDL less than 100 mg/dL OptimalLDL 100-129 mg/dL Near or above optimalLDL 130-159 mg/dL Borderline highLDL 160-189 mg/dL HighLDL greater than 189 mg/dL Very high Cholesterol in LDL [Mass/Vol] Cholesterol in LDL [Mass/volume] in Serum or Plasma by calculation High 0-100 [facility] Comment on above: LDL ATP III CLASSIFI CATIONLDL less than 100 mg/dL OptimalLDL 100-129 mg/dL Near or above optimalLDL 130-159 mg/dL Borderline highLDL 160-189 mg/dL HighLDL greater than 189 mg/dL Very high Cholesterol in VLDL Calc [Ma ss/Vol]Ordered By: Yossi Marcial on 06-17-2024 Cholesterol in VLDL [Mass/Vol] 32 mg/dL [facility] Cholesterol in VLDL [Mass/Vol] Cholesterol in VLDL [Mass/volume] in Serum or Plasma by calculation [facility] Color Auto (U)Ordered By: Sunil Brown on 06-17-2024 Color (U) Color of Urine by Auto Yellow [facility] Color of Urine by AutoOrdere d By: Ranjan Brown on 06-17-2024 Color (U) Colorless Normal Yellow [facility] Comment on above: Order Comment: Name Collection Type:: Clean-Voided Midstream Performed By: #### A DDONUAPLUS, URDS, UHCG, CUU #### [address] Complete Blood Count Auto Di ffon 06-17-2024 Mean Corpuscular HGB Conc 33.5 g/dL Normal 32.0-35.0 [facility] Comment on above: Performed By: #### C MP, ETOH, CBC #### [address] Monocytes/100 WBC (Bld) 18.74 % Normal 0.00-20.00 [facility] Comment on above: Performed By: #### C MP, ETOH, CBC #### [address] NRBC% 0.1 /100{WBC} Normal 0-0.5 [facility] Comment on above: Performed By: #### C MP, ETOH, CBC #### [address] Comprehensive Metabolic Pane edith 06-17-2024 Albumin [Mass/Vol] 4.5 g/dL Normal 3.5-5.7 [facility] Comment on above: Performed By: #### C MP, ETOH, CBC #### [address] Creatinine Clr Calc Pharmacy 82.99 Normal [facility] Comment on above: Result Comment: PERF ORMED BY: [place] [address] PATHOLOGIST FINANCIAL REPORTING MANAGER ELPIDIO DC M.D. Performed By: #### C MP, ETOH, CBC #### [place] [address] [place] GFR/1.73 sq M.predicted MDRD (S/P/Bld) [Vol rate/Area] mL/min/{1.73_m2} Normal [facility] Comment on above: Performed By: #### C MP, ETOH, CBC #### [address] Creatinine [Mass/volume] in Serum or PlasmaOrdered By: Ranjan Brown on 06-17-2024 Creatinine [Mass/Vol] 0.62 mg/dL Normal 0.60-1.20 [facility] Comment on above: Performed By: #### C MP, ETOH, CBC #### [address] Creatinine [Mass/Vol] Creatinine [Mass/volume] in Serum or Plasma 0.60-1.20 [facility] Dipstick and Microscopicon 1 Bacteria,Urine Rare Normal None Seen [facility] Comment on above: Order Comment: Name Collection Type:: Clean-Voided Midstream Performed By: #### A DDONUAPLUS, URDS, UHCG, CUU #### [place] [address] [place] Bilirubin,Urine Negative Normal Negative [facility] Comment on above: Order Comment: Name Collection Type:: Clean-Voided Midstream Performed By: #### A DDONUAPLUS, URDS, UHCG, CUU #### [place] [address] [place] Glucose Ql (U) Normal Normal Normal [facility] Comment on above: Order Comment: Name Collection Type:: Clean-Voided Midstream Performed By: #### A DDONUAPLUS, URDS, UHCG, CUU #### [place] [address] [place] Hyaline Casts,Urine None Normal 0-8 [facility] Comment on above: Order Comment: Name Collection Type:: Clean-Voided Midstream Performed By: #### A DDONUAPLUS, URDS, UHCG, CUU #### [place] [address] [place] Nitrite,Urine Negative Normal Negative [facility] Comment on above: Order Comment: Name Collection Type:: Clean-Voided Midstream Performed By: #### A DDONUAPLUS, URDS, UHCG, CUU #### [address] Occult Blood,Urine Negative Normal Negative [facility] Comment on above: Order Comment: Name Collection Type:: Clean-Voided Midstream Performed By: #### A DDONUAPLUS, URDS, UHCG, CUU #### [place] [address] [place] Protein,Urine Negative Normal Negative [facility] Comment on above: Order Comment: Name Collection Type:: Clean-Voided Midstream Performed By: #### A DDONUAPLUS, URDS, UHCG, CUU #### [address] RBC,Urine 1-2 Normal 0-4 [facility] Comment on above: Order Comment: Name Collection Type:: Clean-Voided Midstream Performed By: #### A DDONUAPLUS, URDS, UHCG, CUU #### [place] [address] [place] Specificy [place],Urine 1.010 Normal 1.001-1.030 [facility] Comment on above: Order Comment: Name Collection Type:: Clean-Voided Midstream Performed By: #### A DDONUAPLUS, URDS, UHCG, CUU #### [place] [address] [place] Squamous Epithelial Cell,Urine 1-2 Normal 0-2 [facility] Comment on above: Order Comment: Name Collection Type:: Clean-Voided Midstream Performed By: #### A DDONUAPLUS, URDS, UHCG, CUU #### [place] [address] [place] Urobilinogen,Urine Normal Normal Normal [facility] Comment on above: Order Comment: Name Collection Type:: Clean-Voided Midstream Performed By: #### A DDONUAPLUS, URDS, UHCG, CUU #### [place] [address] [place] WBC,Urine 10-19 High 0-4 [facility] Comment on above: Order Comment: Name Collection Type:: Clean-Voided Midstream Performed By: #### A DDONUAPLUS, URDS, UHCG, CUU #### [place] [address] [place] Drug Screen,Urineon 06-17-20 24 Amphetamine Screen,Urine Negative Normal Negative [facility] Comment on above: Performed By: #### L IPID, TSH3 wRFLX, [id number] #### [place] [address] [place] Barbiturate Screen,Urine Negative Normal Negative [facility] Comment on above: Performed By: #### L IPID, TSH3 wRFLX, [id number] #### [place] [address] [place] Benzodiazepines Screen,Urine Negative Normal Negative [facility] Comment on above: Performed By: #### L IPID, TSH3 wRFLX, [id number] #### [place] [address] [place] Cannabinoid Screen,Urine Negative Normal Negative [facility] Comment on above: Result Comment: Thes e are unconfirmed results and should not be used for legal purposes. Drug Cut-Off Concentration: AMPH 1000 ng/mL CORI 200 ng/mL KLEBER 200 ng/mL COCM 300 ng/mL OP 300 ng/mL PCP 25 ng/mL THC 20 ng/mL PERFORMED BY: [place] [address] PATHOLOGIST FINANCIAL REPORTING MANAGER ELPIDIO DC M.D. Performed By: #### L IPID, TSH3 wRFLX, [id number] #### [facility] [address] Cocaine Screen,Urine Negative Normal Negative [facility] Comment on above: Performed By: #### L IPID, TSH3 wRFLX, [id number] #### [facility] [address] [place] [address] Opiate Screen,Urine Negative Normal Negative [facility] Comment on above: Performed By: #### L IPID, TSH3 wRFLX, [id number] #### [facility] [address] [place] [address] Phencyclidine Screen,Urine Negative Normal Negative [facility] Comment on above: Performed By: #### L IPID, TSH3 wRFLX, [id number] #### [facility] [address] [place] [address] [place] Eosinophils Auto (Bld) [#/Vo l]Ordered By: Ranjan Brown on 06-17-2024 Eosinophils (Bld) [#/Vol] Automated eosinophil count 0.0-0.45 [facility] Eosinophils/100 WBC Auto (Bl d)Ordered By: Ranjan Brown on 06-17-2024 Eosinophils/100 WBC (Bld) Automated eosinophil % . [facility] Epithelial cells.squamous [# /area] in Urine sediment by Automated countOrdered By: Ranjan Brown on 06-17-2024 Epithelial cells.squamous Auto (Urine sed) [#/Area] 1-2 [HPF] 0-2 [facility] Epithelial cells.squamous Auto (Urine sed) [#/Area] Epithelial cells.squamous [#/area] in Urine sediment by Automated count 0-2 [facility] Erythrocyte distribution wid th Auto (RBC) [Ratio]Ordered By: Ranjan Brown on 06-17-2024 Erythrocyte distribution width (RBC) [Ratio] Erythrocyte distribution width [Ratio] by Automated count 11.9-15.3 [facility] Erythrocyte distribution wid th [Ratio] by Automated countOrdered By: Ranjan Brown on 06-17-2024 Erythrocyte distribution width (RBC) [Ratio] 13.8 % Normal 11.9-15.3 [facility] Comment on above: Performed By: #### C MP, ETOH, CBC #### [facility] [address] Erythrocytes [#/area] in Uri ne sediment by Automated countOrdered By: Ranjan Brown on 06-17-2024 RBC Auto (Urine sed) [#/Area] 1-2 [HPF] 0-4 [facility] RBC Auto (Urine sed) [#/Area] Erythrocytes [#/area] in Urine sediment by Automated count 0-4 [facility] Erythrocytes [#/volume] in B lood by Automated countOrdered By: Ranjan Brown on 06-17-2024 RBC (Bld) [#/Vol] 4.34 10*6/uL Normal 3.60-5.00 [facility] Comment on above: Performed By: #### C MP, ETOH, CBC #### [address] Ethanol [Mass/volume] in Ser um or PlasmaOrdered By: Ranjan Brown on 06-17-2024 Ethanol [Mass/Vol] mg/dL Normal [facility] Comment on above: Performed By: #### C MP, ETOH, CBC #### [address] Ethanol [Mass/Vol] TNP [facility] Comment on above: Test not performed Ethanol [Mass/Vol] Ethanol [Mass/volume ] in Serum or Plasma [facility] Comment on above: Test not performed Ethyl Alcohol Profileon Percent Ethanol Not performed Normal [facility] Comment on above: Result Comment: PERF ORMED BY: [place] [address] PATHOLOGIST FINANCIAL REPORTING MANAGER ELPIDIO DC M.D. Performed By: #### C MP, ETOH, CBC #### [address] Globulin Calc (S) [Mass/Vol] Ordered By: Ranjan Brown on 06-17-2024 Globulin (S) [Mass/Vol] Serum globulin measurement by calculation (mass/volume) [facility] Glucose [Mass/volume] in Ser um or PlasmaOrdered By: Ranjan Brown on 06-17-2024 Glucose [Mass/Vol] 108 mg/dL High 70-100 [facility] Comment on above: ADA recommended refe rence rangeRandom Glucose Reference Range is dependent on time and content of last meal. Glucose of more than 200 mg/dL in a nonstressed, ambulatory subject supports the diagnosis of Diabetes Mellitus. Result Comment: [place] Glucose Reference Range is dependent on time and content of last meal. Glucose of more than 200 mg/dL in a nonstressed, ambulatory subject supports the diagnosis of Diabetes Mellitus. ADA recommended reference range Performed By: #### C MP, ETOH, CBC #### [address] Glucose [Mass/Vol] Glucose [Mass/volume ] in Serum or Plasma High 70-100 [facility] Comment on above: ADA recommended refe rence rangeRandom Glucose Reference Range is dependent on time and content of last meal. Glucose of more than 200 mg/dL in a nonstressed, ambulatory subject supports the diagnosis of Diabetes Mellitus. Glucose [Mass/volume] in Uri ne by Test stripOrdered By: Ranjan Brown on 06-17-2024 Glucose Test strip (U) [Mass/Vol] Normal mg/dL Normal [facility] Glucose Test strip (U) [Mass/Vol] Glucose [Mass/volume] in Urine by Test strip Normal [facility] HCG ( test) IA.rapi d Ql (U)Ordered By: Ranjan Brown on 06-17-2024 HCG ( test) Ql (U) Negative [facility] HCG ( test) Ql (U) Urine human chorionic gonadotropin (hCG) detection by immunoassay [facility] HCG,Urineon 06-17-2024 Beta HCG ( test) Ql (U) Negative Normal [facility] Comment on above: Order Comment: Name Collection Type:: Clean-Voided Midstream Result Comment: PERF ORMED BY: [facility] [address] [place] [id number] PATHOLOGIST FINANCIAL REPORTING MANAGER ELPIDIO DC M.D. Performed By: #### A DDONUAPLUS, URDS, UHCG, CUU #### [address] Hematocrit Auto (Bld) [Volum e fraction]Ordered By: Ranjan Brown on 06-17-2024 Hematocrit (Bld) [Volume fraction] Hematocrit [Volume Fraction] of Blood by Automated count 34.0-46.4 [facility] Hematocrit [Volume Fraction] of Blood by Automated countOrdered By: Ranjan Brown on 06-17-2024 Hematocrit (Bld) [Volume fraction] 37.2 % Normal 34.0-46.4 [facility] Comment on above: Performed By: #### C MP, ETOH, CBC #### [address] Hemoglobin Test strip Ql (U) Ordered By: Ranjan Brown on 06-17-2024 Hemoglobin Ql (U) Negative Negative [facility] Hemoglobin Ql (U) Hemoglobin [Presence ] in Urine by Test strip Negative [facility] Hemoglobin [Mass/volume] in BloodOrdered By: Ranjan Brown on 06-17-2024 Hemoglobin (Bld) [Mass/Vol] 12.5 g/dL Normal 11.8-15.4 [facility] Comment on above: Performed By: #### C MP, ETOH, CBC #### [address] Hemoglobin (Bld) [Mass/Vol] Hemoglobin [Mass/volume] in Blood 11.8-15.4 [facility] Hyaline casts [#/area] in Ur ine sediment by Automated countOrdered By: Ranjan Brown on 06-17-2024 Hyaline casts Auto (Urine sed) [#/Area] None [LPF] 0-8 [facility] Hyaline casts Auto (Urine sed) [#/Area] Hyaline casts [#/area] in Urine sediment by Automated count 0-8 [facility] Ketones Test strip Ql (U)Ord ered By: Ranjan Brown on 06-17-2024 Ketones Ql (U) Ketones [Presence] i n Urine by Test strip Negative [facility] Ketones [Presence] in Urine by Test stripOrdered By: Ranjan Brown on 06-17-2024 Ketones Ql (U) Negative Normal Negative [facility] Comment on above: Order Comment: Name Collection Type:: Clean-Voided Midstream Performed By: #### A DDONUAPLUS, URDS, UHCG, CUU #### [facility] [address] [place] [address] Laboratory - Microbiology an d Antimicrobial susceptibilityOrdered By: Ranjan Brown on 06-17-2024 Bacteria identified Cx Nom (U) 2 Days [facility] Leukocyte esterase [Presence ] in Urine by Test stripOrdered By: Ranjan Brown on 06-17-2024 Leukocyte esterase Test strip Ql (U) 4+ High Negative [facility] Comment on above: Order Comment: Name Collection Type:: Clean-Voided Midstream Performed By: #### A DDONUAPLUS, URDS, UHCG, CUU #### [facility] [address] [place] [address] Leukocyte esterase Test strip Ql (U) Leukocyte esterase [Presence] in Urine by Test strip High Negative [facility] Leukocytes [#/area] in Urine sediment by Automated countOrdered By: Ranjan Brown on 06-17-2024 WBC Auto (Urine sed) [#/Area] 10-19 [HPF] High 0-4 [facility] WBC Auto (Urine sed) [#/Area] Leukocytes [#/area] in Urine sediment by Automated count High 0-4 [facility] Leukocytes [#/volume] correc jahaira for nucleated erythrocytes in Blood by Automated counOrdered By: Ranjan Brown on 06-17-2024 WBC corrected for nucl RBC Auto (Bld) [#/Vol] 7.7 10*3/uL 3.8-11.6 [facility] WBC corrected for nucl RBC Auto (Bld) [#/Vol] Leukocytes [#/volume] corrected for nucleated erythrocytes in Blood by Automated coun 3.8-11.6 [facility] Leukocytes [#/volume] in Blo od by Automated countOrdered By: Ranjan Brown on 06-17-2024 WBC (Bld) [#/Vol] 7.7 10*3/uL Normal 3.8-11.6 [facility] Comment on above: Performed By: #### C MP, ETOH, CBC #### [facility] [address] Lipid Panelon 06-17-2024 LDL Cholesterol,Calculated 134 mg/dL High 0-100 [facility] Comment on above: Order Comment: AUNDREA Ro Comment USE BLOOD OBTAINED IN ED PLEASE Result Comment: LDL ATP III CLASSIFICATION LDL less than 100 mg/dL Optimal LDL 100-129 mg/dL Near or above optimal LDL 130-159 mg/dL Borderline high LDL 160-189 mg/dL High LDL greater than 189 mg/dL Very high Performed By: #### L IPID, TSH3 wRFLX, [id number] #### [address] Triglyceride w/Reflex 162 mg/dL High 0-149 [facility] Comment on above: Order Comment: AUNDREA Ro Comment USE BLOOD OBTAINED IN ED PLEASE Result Comment: TRIG ATP III CLASSIFICATION TRIG less than 150 mg/dL Normal TRIG 150-199 mg/dL Borderline high TRIG 200-500 mg/dL High TRIG greater than 500 mg/dL Very high Standard traceable to the Center for Disease Conrtrol and Prevention (CDC) test method. Performed By: #### L IPID, TSH3 wRFLX, [id number] #### [address] VLDL CHOLESTEROL 32 mg/dL Normal [facility] Comment on above: Order Comment: AUNDREA Ro Comment USE BLOOD OBTAINED IN ED PLEASE Performed By: #### L IPID, TSH3 wRFLX, [id number] #### [facility] [address] Lymphocytes Auto (Bld) [#/Vo l]Ordered By: Ranjan Brown on 06-17-2024 Lymphocytes (Bld) [#/Vol] Lymphocytes [#/volume] in Blood by Automated count 1.00-4.8 [facility] Lymphocytes [#/volume] in Bl ood by Automated countOrdered By: Ranjan Brown on 06-17-2024 Lymphocytes (Bld) [#/Vol] 2.4 10*3/uL Normal 1.00-4.8 [facility] Comment on above: Performed By: #### C MP, ETOH, CBC #### [facility] [address] [place] [address] Lymphocytes/100 WBC Auto (Bl d)Ordered By: Ranjan Brown on 06-17-2024 Lymphocytes/100 WBC (Bld) Lymphocytes/100 leukocytes in Blood by Automated count . [facility] Lymphocytes/100 leukocytes i n Blood by Automated countOrdered By: Ranjan Brown on 06-17-2024 Lymphocytes/100 WBC (Bld) 31.8 % Normal . [facility] Comment on above: Performed By: #### C MP, ETOH, CBC #### [address] MCH Auto (RBC) [Entitic mass ]Ordered By: Ranjan Brown on 06-17-2024 MCH (RBC) [Entitic mass] MCH [Entitic ma ss] by Automated count 24.7-34.3 [facility] MCH [Entitic mass] by Automa jahaira countOrdered By: Ranjan Brown on 06-17-2024 MCH (RBC) [Entitic mass] 28.7 pg Normal 24.7-34.3 [facility] Comment on above: Performed By: #### C MP, ETOH, CBC #### [address] MCHC Auto (RBC) [Mass/Vol]Or dered By: Ranjan Brown on 06-17-2024 MCHC (RBC) [Mass/Vol] 33.5 g/dL 32.0-35.0 [facility] MCHC (RBC) [Mass/Vol] MCHC [Mass/volume] by Automated count 32.0-35.0 [facility] MCV Auto (RBC) [Entitic vol] Ordered By: Ranjan Brown on 06-17-2024 MCV (RBC) [Entitic vol] MCV [Entitic vol ume] by Automated count 80-100 [facility] MCV [Entitic volume] by Auto mated countOrdered By: Ranjan Brown on 06-17-2024 MCV (RBC) [Entitic vol] 85.8 fL Normal 80-100 [facility] Comment on above: Performed By: #### C MP, ETOH, CBC #### [facility] [address] Monocyte distribution width [Entitic volume] in Blood by AutomatedOrdered By: Ranjan Brown on 06-17-2024 Monocyte distribution width Auto (Bld) [Entitic vol] 18.74 % 0.00-20.00 [facility] Monocyte distribution width Auto (Bld) [Entitic vol] Monocyte distribution width [Entitic volume] in Blood by Automated 0.00-20.00 [facility] Monocytes Auto (Bld) [#/Vol] Ordered By: Ranjan Brown on 06-17-2024 Monocytes (Bld) [#/Vol] Automated blood monocyte count 0.0-0.8 [facility] Monocytes/100 WBC Auto (Bld) Ordered By: Ranjan Brown on 06-17-2024 Monocytes/100 WBC (Bld) Automated monocyte % . [facility] Neutrophils Auto (Bld) [#/Vo l]Ordered By: Ranjan Brown on 06-17-2024 Neutrophils (Bld) [#/Vol] Neutrophils [#/volume] in Blood by Automated count 1.8-7.7 [facility] Neutrophils [#/volume] in Bl ood by Automated countOrdered By: Ranjan Brown on 06-17-2024 Neutrophils (Bld) [#/Vol] 4.7 10*3/uL Normal 1.8-7.7 [facility] Comment on above: Performed By: #### C MP, ETOH, CBC #### [facility] [address] [place] [address] [place] Neutrophils/100 WBC Auto (Bl d)Ordered By: Ranjan Brown on 06-17-2024 Neutrophils/100 WBC (Bld) Automated neutrophil % . [facility] Nitrite Test strip Ql (U)Ord ered By: Ranjan Brown on 06-17-2024 Nitrite Ql (U) Negative Negative [facility] Nitrite Ql (U) Nitrite [Presence] i n Urine by Test strip Negative [facility] No Panel InformationOrdered By: Ranjan Brown on 06-17-2024 Estimated GFR (CKD-EPI) > 60.0 mL/Min [facility] Creatinine Clearance (Chem 82.99 [facility] Nucleated erythrocytes [Pres ence] in Blood by Automated countOrdered By: Ranjan Brown on 06-17-2024 Nucleated RBC Auto Ql (Bld) 0.1 /100{WBC} 0-0.5 [facility] Nucleated RBC Auto Ql (Bld) Nucleated erythrocytes [Presence] in Blood by Automated count 0-0.5 [facility] Opiates [Presence] in Urine by Screen methodOrdered By: Ranjan Brown on 06-17-2024 Opiates Screen Ql (U) Negative Negative [facility] Opiates Screen Ql (U) Opiates [Presence] in Urine by Screen method Negative [facility] Phencyclidine Screen Ql (U)O rdered By: Ranjan Brown on 06-17-2024 Phencyclidine Ql (U) Negative Negative [facility] Phencyclidine Ql (U) Phencyclidine [Presence] in Urine by Screen method Negative [facility] Platelet mean volume Auto (B ld) [Entitic vol]Ordered By: Ranjan Brown on 06-17-2024 Platelet mean volume (Bld) [Entitic vol] Platelet mean volume [Entitic volume] in Blood by Automated count 6.3-10.7 [facility] Platelet mean volume [Entiti c volume] in Blood by Automated countOrdered By: Ranjan Brown on 06-17-2024 Platelet mean volume (Bld) [Entitic vol] 8.2 fL Normal 6.3-10.7 [facility] Comment on above: Performed By: #### C MP, ETOH, CBC #### [facility] [address] [place] [address] Platelets Auto (Bld) [#/Vol] Ordered By: Ranjan Brown on 06-17-2024 Platelets (Bld) [#/Vol] Platelets [#/vol ume] in Blood by Automated count 150-450 [facility] Platelets [#/volume] in Bloo d by Automated countOrdered By: Ranjan Brown on 06-17-2024 Platelets (Bld) [#/Vol] 232 10*3/uL Normal 150-450 [facility] Comment on above: Performed By: #### C MP, ETOH, CBC #### [facility] [address] [place] [address] [place] Potassium [Moles/volume] in Serum or PlasmaOrdered By: Ranjan Brown on 06-17-2024 Potassium [Moles/Vol] 3.9 mmol/L Normal 3.5-5.1 [facility] Comment on above: Performed By: #### C MP, ETOH, CBC #### [facility] [address] Potassium [Moles/Vol] Potassium [Moles/volume] in Serum or Plasma 3.5-5.1 [facility] Protein Test strip (U) [Mass /Vol]Ordered By: Ranjan Brown on 06-17-2024 Protein (U) [Mass/Vol] Negative Negative [facility] Protein (U) [Mass/Vol] Protein [Mass/vol ume] in Urine by Test strip Negative [facility] Protein [Mass/volume] in Ser um or PlasmaOrdered By: Ranjan Brown on 06-17-2024 Protein [Mass/Vol] 7.6 g/dL Normal 6.4-8.9 [facility] Comment on above: Performed By: #### C MP, ETOH, CBC #### [address] Protein [Mass/Vol] Protein [Mass/volume ] in Serum or Plasma 6.4-8.9 [facility] RBC Auto (Bld) [#/Vol]Ordere d By: Ranjan Brown on 06-17-2024 RBC (Bld) [#/Vol] Erythrocytes [#/volume] in Blood by Automated count 3.60-5.00 [facility] Serum globulin measurement b y calculation (mass/volume)Ordered By: Ranjan Brown on 06-17-2024 Globulin (S) [Mass/Vol] 3.1 g/dL Normal [facility] Comment on above: Performed By: #### C MP, ETOH, CBC #### [facility] [address] Serum or plasma albumin/glob ulin mass ratioOrdered By: Ranjan Brown on 06-17-2024 Albumin/Globulin [Mass ratio] 1.5 {ratio} Normal [facility] Comment on above: Performed By: #### C MP, ETOH, CBC #### [facility] [address] [place] [address] Albumin/Globulin [Mass ratio] Serum or plasma albumin/globulin mass ratio [facility] Serum or plasma anion gap de terminationOrdered By: Ranjan Brown on 06-17-2024 Anion gap [Moles/Vol] 12.8 mmol/L Normal 6.0-15.0 [facility] Comment on above: Performed By: #### C MP, ETOH, CBC #### [address] Anion gap [Moles/Vol] Serum or plasma an ion gap determination 6.0-15.0 [facility] Serum or plasma high density lipoprotein (HDL) cholesterol measurementOrdered By: Yossi Marcial on 06-17-2024 Cholesterol in HDL [Mass/Vol] 40 mg/dL Normal 23-92 [facility] Comment on above: HDL CHOL ATP-III CLA SSIFICATION Cardiovascular RiskHDL > or equal to 60 mg/dL LOWHDL < 40 mg/dL HIGH Order Comment: AUNDREA Ro Comment USE BLOOD OBTAINED IN ED PLEASE Result Comment: HDL CHOL ATP-III CLASSIFICATION Cardiovascular Risk HDL > or equal to 60 mg/dL LOW HDL < 40 mg/dL HIGH Performed By: #### L IPID, TSH3 wRFLX, [id number] #### [facility] [address] [place] [address] Serum or plasma total choles terol/high density lipoprotein (HDL) cholesterol mass ratOrdered By: Yossi Marcial on 06-17-2024 Cholesterol.total/Choles terol in HDL [Mass ratio] 5.2 {ratio} Normal <5.0 [facility] Comment on above: Order Comment: AUNDREA Ro Comment USE BLOOD OBTAINED IN ED PLEASE Performed By: #### L IPID, TSH3 wRFLX, [id number] #### [facility] [address] [place] [id number] [facility] Cholesterol.total/Choles terol in HDL [Mass ratio] Serum or plasma total cholesterol/high density lipoprotein (HDL) cholesterol mass rat <5.0 [facility] Sodium [Moles/volume] in Ser um or PlasmaOrdered By: Ranjan Brown on 06-17-2024 Sodium [Moles/Vol] 139 mmol/L Normal 136-145 [facility] Comment on above: Performed By: #### C MP, ETOH, CBC #### [facility] [address] [place] [id number] [facility] Sodium [Moles/Vol] Sodium [Moles/volume ] in Serum or Plasma 136-145 [facility] Specific gravity Test strip (U) [Rel density]Ordered By: Ranjan Brown on 06-17-2024 Specific gravity (U) [Rel density] 1.010 1.001-1.030 [facility] Specific gravity (U) [Rel density] Specific gravity of Urine by Test strip 1.001-1.030 [facility] Thyroid Stim Hormone w/Rflxo n 06-17-2024 Thyroid Stim Hormone w/Rflx 1.64 u[iU]/mL Normal 0.45-5.33 [facility] Comment on above: Order Comment: AUNDREA Ro Comment USE BLOOD OBTAINED IN ED PLEASE Performed By: #### L IPID, TSH3 wRFLX, [id number] #### [facility] [address] [place] [id number] [facility] Thyrotropin [Units/volume] i n Serum or PlasmaOrdered By: Yossi Marcial on 06-17-2024 TSH Qn 1.64 m[IU]/L 0.45-5.33 [facility] TSH Qn Thyrotropin [Units/volume] in Serum or Plasma 0.45-5.33 [facility] Triglyceride [Mass/volume] i n Serum or PlasmaOrdered By: Yossi Marcial on 06-17-2024 Triglyceride [Mass/Vol] 162 mg/dL High 0-149 [facility] Comment on above: TRIG ATP III CLASSIF ICATIONTRIG less than 150 mg/dL NormalTRIG 150-199 mg/dL Borderline highTRIG 200-500 mg/dL High TRIG greater than 500 mg/dL Very highStandard traceable to the Center for Disease Conrtrol and Prevention (CDC) test method. Triglyceride [Mass/Vol] Triglyceride [Mass/volume] in Serum or Plasma High 0-149 [facility] Comment on above: TRIG ATP III CLASSIF ICATIONTRIG less than 150 mg/dL NormalTRIG 150-199 mg/dL Borderline highTRIG 200-500 mg/dL High TRIG greater than 500 mg/dL Very highStandard traceable to the Center for Disease Conrtrol and Prevention (CDC) test method. Urea nitrogen [Mass/volume] in Serum or PlasmaOrdered By: Ranjan Brown on 06-17-2024 Urea nitrogen [Mass/Vol] 13 mg/dL Normal 04-02 [facility] Comment on above: Performed By: #### C MP, ETOH, CBC #### [facility] [address] [place] [address] Urea nitrogen [Mass/Vol] Urea nitrogen [Mass/volume] in Serum or Plasma 04-02 [facility] Urine Cultureon 06-17-2024 Bacteria identified Cx Nom (U) <9,000 colonies/ml mixed bacterial skin contaminants 2 Days PERFORMED BY: [place] [address] PATHOLOGIST FINANCIAL REPORTING MANAGER ELPIDIO DC M.D. Normal [facility] Comment on above: Performed By: #### L IPID, TSH3 wRFLX, [id number] #### [facility] [address] [place] [id number] Urine appearanceOrdered By: Ranjan Brown on 06-17-2024 Appearance (U) Clear Normal Clear [facility] Comment on above: Order Comment: Name Collection Type:: Clean-Voided Midstream Performed By: #### A DDONUAPLUS, URDS, UHCG, CUU #### [facility] [address] [place] [address] Urine cultureOrdered By: Krissy Brown on 06-17-2024 Bacteria identified Cx Nom (U) Urine culture [facility] Urobilinogen Test strip (U) [Mass/Vol]Ordered By: Ranjan Brown on 06-17-2024 Urobilinogen (U) [Mass/Vol] Normal mg/dL Normal [facility] Urobilinogen (U) [Mass/Vol] Urobilinogen [Mass/volume] in Urine by Test strip Normal [facility] Vitamin D 25 Hydroxy Totalon 06-17-2024 Vitamin D 25 Hydroxy Total 25.9 ng/mL Low 30-100 [facility] Comment on above: Order Comment: AUNDREA Ro Comment USE BLOOD OBTAINED IN ED PLEASE Result Comment: CAMMIE MIN D STATUS 25(OH)VITAMIN D RANGE (ng/mL) Deficient <20 Insufficient 20 to <30 Sufficient 30 to 100 Reference: Elizabeth De Souza, Robert AARON, et al. Evaluation,treatment, and prevention of vitamin D deficiency; an Endocrine Society clinical practice guideline. JCEM. 2010; 96(7):1911-. PERFORMED BY: [facility] [address] [place] [address] PATHOLOGIST FINANCIAL REPORTING MANAGER ELPIDIO DC M.D. Performed By: #### L IPID, TSH3 wRFLX, [id number] #### [facility] [address] Vitamin D+Metabolites [Mass/ volume] in Serum or PlasmaOrdered By: Yossi Marcial on 06-17-2024 Vitamin D+Metabolites [Mass/Vol] 25.9 ng/mL Low 30-100 [facility] Comment on above: VITAMIN D STATUS 25( [place])VITAMIN D RANGE (ng/mL) Deficient <20 Insufficient 20 to <30Sufficient 30 to 100Reference: Elizabeth De Souza, Robert AARON, et al. Evaluation,treatment, and prevention of vitamin D deficiency; an Endocrine Society clinical practice guideline. JCEM. 2010; 96(7):1911-30. Vitamin D+Metabolites [Mass/Vol] Vitamin D+Metabolites [Mass/volume] in Serum or Plasma Low 30-100 [facility] Comment on above: VITAMIN D STATUS 25( [place])VITAMIN D RANGE (ng/mL) Deficient <20 Insufficient 20 to <30Sufficient 30 to 100Reference: Elizabeth De Souza, Robert AARON, et al. Evaluation,treatment, and prevention of vitamin D deficiency; an Endocrine Society clinical practice guideline. JCEM. 2010; 96(7):1911-30. WBC Auto (Bld) [#/Vol]Ordere d By: Ranjan Brown on 06-17-2024 WBC (Bld) [#/Vol] Leukocytes [#/volume ] in Blood by Automated count 3.8-11.6 [facility] pH Test strip (U)Ordered By: Ranjan Brown on 06-17-2024 pH (U) pH of Urine by Test strip 5.0-9.0 [facility] pH of Urine by Test stripOrd ered By: Ranjan Brown on 06-17-2024 pH (U) 7.0 [pH] Normal 5.0-9.0 [facility] Comment on above: Order Comment: Name Collection Type:: Clean-Voided Midstream Performed By: #### A DDONUAPLUS, URDS, UHCG, CUU #### [address] CBC W Auto Differential pane l (Bld)on 04-27-2024 Basophils (Bld) [#/Vol] 0.01 10*3/uL [facility] Basophils/100 WBC (Bld) 0.2 % 0.0 - 2.0 % [facility] Eosinophils (Bld) [#/Vol] 0.02 10*3/uL [facility] Eosinophils/100 WBC (Bld) 0.4 % 0.0 - 6.0 % [facility] Erythrocyte distribution width (RBC) [Ratio] 12.8 % 11.5 - 14.5 % [facility] Hematocrit (Bld) [Volume fraction] 36.0 % 36.0 - 46.0 % [facility] Hemoglobin (Bld) [Mass/Vol] 11.8 g/dL Low 12.0 - 16.0 g/dL [facility] Immature granulocytes (Bld) [#/Vol] 0.01 10*3/uL [facility] Immature granulocytes/100 WBC (Bld) 0.2 % 0.0 - 0.9 % [facility] Comment on above: Immature Granulocyte Count (IG) includes promyelocytes, myelocytes and metamyelocytes but does not include bands. Percent differential counts (%) should be interpreted in the context of the absolute cell counts (cells/UL). Interpretation and review of laboratory results Abnormal [facility] Lymphocytes (Bld) [#/Vol] 1.05 10*3/uL Low [facility] Lymphocytes/100 WBC (Bld) 19.5 % 13.0 - 44.0 % [facility] MCH (RBC) [Entitic mass] 28.4 pg 26. 0 - 34.0 pg [facility] MCHC (RBC) [Mass/Vol] 32.8 g/dL 32.0 - 36.0 g/dL [facility] MCV (RBC) [Entitic vol] 87 fL 80 - 100 fL [facility] Monocytes (Bld) [#/Vol] 0.51 10*3/uL [facility] Monocytes/100 WBC (Bld) 9.5 % 2.0 - 10.0 % [facility] Neutrophils (Bld) [#/Vol] 3.79 10*3/uL [facility] Comment on above: Percent differential counts (%) should be interpreted in the context of the absolute cell counts (cells/uL). Neutrophils/100 WBC (Bld) 70.2 % 40.0 - 80.0 % [facility] Nucleated RBC/100 WBC (Bld) [Ratio] 0.0 % [facility] Platelets (Bld) [#/Vol] 190 10*3/uL [facility] RBC (Bld) [#/Vol] 4.15 10*6/uL [facility] WBC (Bld) [#/Vol] 5.4 10*3/uL [facility] Basophils (Bld) [#/Vol] 0.01 x10*3/uL Normal 0.00-0.10 [facility] Comment on above: Performed By: #### 5 7021-8 #### YARIEL AVELAR ([id number]) [facility] ([facility]) [address] [place] [address]483 Basophils/100 WBC (Bld) 0.2 % Normal 0.0-2.0 [facility] Comment on above: Performed By: #### 5 7021-8 #### YARIEL AVELAR ([id number]) [facility]) [address] [place] [address] 79918 Eosinophils (Bld) [#/Vol] 0.02 x10*3/uL Normal 0.00-0.70 [facility] Comment on above: Performed By: #### 5 7021-8 #### YARIEL AVELAR ([id number]) [facility] [address] [place] [address] 15267 Eosinophils/100 WBC (Bld) 0.4 % Normal 0.0-6.0 [facility] Comment on above: Performed By: #### 5 7021-8 #### YARIEL AVELAR ([id number]) [facility]) [address] [place] [address] 38317 Erythrocyte distribution width (RBC) [Ratio] 12.8 % Normal 11.5-14.5 [facility] Comment on above: Performed By: #### 5 7021-8 #### YARIEL AVELAR ([id number]) [facility] ([facility]) [address] [place] [address] 96637 Hematocrit (Bld) [Volume fraction] 36.0 % Normal 36.0-46.0 [facility] Comment on above: Performed By: #### 5 7021-8 #### YARIEL AVELAR ([id number]) [facility] ([facility]) [address] [place] [address] 40689 Hemoglobin (Bld) [Mass/Vol] 11.8 g/dL Low 12.0-16.0 [facility] Comment on above: Performed By: #### 5 7021-8 #### YARIEL AVELAR ([id number]) [facility]) [address] [place] [address] 26902 Immature granulocytes (Bld) [#/Vol] 0.01 x10*3/uL Normal 0.00-0.70 [facility] Comment on above: Performed By: #### 5 7021-8 #### YARIEL AVELAR ([id number]) [facility] ([facility]) [address] [place] [address] 29253 Immature granulocytes/100 WBC (Bld) 0.2 % Normal 0.0-0.9 [facility] Comment on above: Result Comment: Ayla ture Granulocyte Count (IG) includes promyelocytes, myelocytes and metamyelocytes but does not include bands. Percent differential counts (%) should be interpreted in the context of the absolute cell counts (cells/UL). Performed By: #### 5 7021-8 #### YARIEL AVELAR ([id number]) [facility]) [address] [place] [address] 70976 Lymphocytes (Bld) [#/Vol] 1.05 x10*3/uL Low 1.20-4.80 [facility] Comment on above: Performed By: #### 5 7021-8 #### YARIEL AVELAR ([id number]) [facility]) [address] [place] [address] 10393 Lymphocytes/100 WBC (Bld) 19.5 % Normal 13.0-44.0 [facility] Comment on above: Performed By: #### 5 7021-8 #### YARIEL AVELAR ([id number]) [facility]) [address] [place] [address] 66836 MCH (RBC) [Entitic mass] 28.4 pg Normal 26.0-34.0 [facility] Comment on above: Performed By: #### 5 7021-8 #### YARIEL AVELAR ([id number]) [facility]) [address] [place] [address] 07615 MCHC (RBC) [Mass/Vol] 32.8 g/dL Normal 32.0-36.0 [facility] Comment on above: Performed By: #### 5 7021-8 #### YARIEL AVELAR ([id number]) [facility]) [address] [place] [address] MCV (RBC) [Entitic vol] 87 fL Normal 80-100 [facility] Comment on above: Performed By: #### 5 7021-8 #### YARIEL AVELAR ([id number]) [facility]) [address] [place] [address] 95455 Monocytes (Bld) [#/Vol] 0.51 x10*3/uL Normal 0.10-1.00 [facility] Comment on above: Performed By: #### 5 7021-8 #### YARIEL AVELAR ([id number]) [facility]) [address] [place] [address] 11273 Monocytes/100 WBC (Bld) 9.5 % Normal 2.0-10.0 [facility] Comment on above: Performed By: #### 5 7021-8 #### YARIEL AVELAR ([id number]) [facility]) [address] [place] [address] 41797 Neutrophils (Bld) [#/Vol] 3.79 x10*3/uL Normal 1.20-7.70 [facility] Comment on above: Result Comment: Perc ent differential counts (%) should be interpreted in the context of the absolute cell counts (cells/uL). Performed By: #### 5 7021-8 #### YARIEL AVELAR ([id number]) [facility]) [address] [place] [address] 03881 Neutrophils/100 WBC (Bld) 70.2 % Normal 40.0-80.0 [facility] Comment on above: Performed By: #### 5 7021-8 #### YARIEL AVELAR ([id number]) [facility] ([facility]) [address] [place] [address] 00761 Nucleated RBC/100 WBC (Bld) [Ratio] 0.0 /100 WBCs Normal 0.0-0.0 [facility] Comment on above: Performed By: #### 5 7021-8 #### YARIEL AVELAR ([id number]) [facility] ([facility]) [address] [place] [address] Platelets (Bld) [#/Vol] 190 x10*3/uL Normal 150-450 [facility] Comment on above: Performed By: #### 5 7021-8 #### YARIEL AVELAR ([id number]) [facility] ([facility]) [address] [place] [address] RBC (Bld) [#/Vol] 4.15 x10*6/uL Normal 4.00-5.20 [facility] Comment on above: Performed By: #### 5 7021-8 #### YARIEL AVELAR ([id number]) [facility] ([facility]) [address] [place] [address] WBC (Bld) [#/Vol] 5.4 x10*3/uL Normal 4.4-11.3 [facility] Comment on above: Performed By: #### 5 7021-8 #### YARIEL AVELAR ([id number]) [facility] ([facility]) [address] [place] [address] 92058 Comprehensive metabolic 2000 panelon 04-27-2024 Albumin BCP dye [Mass/Vol] 4.1 g/dL 3.4 - 5.0 g/dL [facility] ALP [Catalytic activity/Vol] 59 U/L 33 - 110 U/L [facility] ALT With P-5'-P [Catalytic activity/Vol] 44 U/L 7 - 45 U/L [facility] Comment on above: Patients treated wit h Sulfasalazine may generate falsely decreased results for ALT. Anion gap [Moles/Vol] 12 mmol/L 10 - 2 0 mmol/L [facility] AST With P-5'-P [Catalytic activity/Vol] 42 U/L High 9 - 39 U/L [facility] Bilirubin [Mass/Vol] 0.3 mg/dL 0.0 - 1 .2 mg/dL [facility] Calcium [Mass/Vol] 8.8 mg/dL 8.6 - 10. 3 mg/dL [facility] Chloride [Moles/Vol] 105 mmol/L 98 - 10 7 mmol/L [facility] CO2 [Moles/Vol] 25 mmol/L 21 - 32 mmol/L [facility] Creatinine [Mass/Vol] 0.59 mg/dL 0.50 - 1.05 mg/dL [facility] eGFR - PINF [facility] Comment on above: Calculations of radha mated GFR are performed using the 2020 CKD-EPI Study Refit equation without the race variable for the IDMS-Traceable creatinine methods. https://jasn.asnjournals.org/content/early//ASN.645 7606539 Glucose [Mass/Vol] 109 mg/dL High 74 - 99 mg/dL [facility] Interpretation and review of laboratory results Abnormal [facility] Potassium [Moles/Vol] 3.8 mmol/L 3.5 - 5.3 mmol/L [facility] Protein [Mass/Vol] 7.2 g/dL 6.4 - 8.2 g/dL [facility] Sodium [Moles/Vol] 138 mmol/L 136 - 145 mmol/L [facility] Urea nitrogen [Mass/Vol] 6 mg/dL 6 - 23 mg/dL [facility] Albumin BCP dye [Mass/Vol] 4.1 g/dL Normal 3.4-5.0 [facility] Comment on above: Performed By: #### 2 4323-8 #### YARIEL AVELAR ([id number]) [facility]) [address] [place] [address] ALP [Catalytic activity/Vol] 59 U/L Normal 33-110 [facility] Comment on above: Performed By: #### 2 4323-8 #### YARIEL AVELAR ([id number]) [facility]) [address] [place] [address] ALT With P-5'-P [Catalytic activity/Vol] 44 U/L Normal 7-45 [facility] Comment on above: Result Comment: Clari ents treated with Sulfasalazine may generate falsely decreased results for ALT. Performed By: #### 2 4323-8 #### YARIEL AVELAR ([id number]) [facility]) [address] [place] [address] Anion gap [Moles/Vol] 12 mmol/L Normal 10-20 [facility] Comment on above: Performed By: #### 2 4323-8 #### YARIEL AVELAR ([id number]) [facility]) [address] [place] [address] AST With P-5'-P [Catalytic activity/Vol] 42 U/L High 9-39 [facility] Comment on above: Performed By: #### 2 4323-8 #### YARIEL AVELAR ([id number]) [facility]) [address] [place] [address] Bilirubin [Mass/Vol] 0.3 mg/dL Normal 0.0-1.2 [facility] Comment on above: Performed By: #### 2 4323-8 #### YARIEL AVELAR ([id number]) [facility]) [address] [place] [address] Calcium [Mass/Vol] 8.8 mg/dL Normal 8.6-10.3 [facility] Comment on above: Performed By: #### 2 4323-8 #### CATHERINEIBYONI AVELAR ([id number]) [facility]) [address] [place] [address] Chloride [Moles/Vol] 105 mmol/L Normal 98-107 [facility] Comment on above: Performed By: #### 2 4323-8 #### YARIEL AVELAR ([id number]) [facility]) [address] [place] [address] CO2 [Moles/Vol] 25 mmol/L Normal 21-[address] [facility] Comment on above: Performed By: #### 2 4323-8 #### YARIEL AVELAR ([id number]) [facility] ([facility]) [address] [place] [address] 02165 Creatinine [Mass/Vol] 0.59 mg/dL Normal 0.50-1.05 [facility] Comment on above: Performed By: #### 2 4323-8 #### YARIEL AVELAR ([id number]) [facility] ([facility]) [address] [place] [address] 66872 GFR/1.73 sq M.predicted MDRD (S/P/Bld) [Vol rate/Area] mL/min/{1.73_m2} Normal >60 [facility] Comment on above: Result Comment: Calc ulations of estimated GFR are performed using the 2020 CKD-EPI Study Refit equation without the race variable for the IDMS-Traceable creatinine methods. https://jasn.asnjournals.org/content/early//ASN.246 4188807 Performed By: #### 2 4323-8 #### YARIEL AVELAR ([id number]) [facility] ([facility]) [address] [place] [address] 86359 Glucose [Mass/Vol] 109 mg/dL High 74-99 [facility] Comment on above: Performed By: #### 2 4323-8 #### YARIEL AVELAR ([id number]) [facility] ([facility]) [address] [place] [address] 96600 Potassium [Moles/Vol] 3.8 mmol/L Normal 3.5-5.3 [facility] Comment on above: Performed By: #### 2 4323-8 #### YARIEL AVELAR ([id number]) [facility]) [address] [place] [address] 43193 Protein [Mass/Vol] 7.2 g/dL Normal 6.4-8.2 [facility] Comment on above: Performed By: #### 2 4323-8 #### YARIEL AVELAR ([id number]) [facility]) [address] [place] [address] Sodium [Moles/Vol] 138 mmol/L Normal 136-145 [facility] Comment on above: Performed By: #### 2 4323-8 #### YARIEL AVELAR ([id number]) [facility]) [address] [place] [address] 52699 Urea nitrogen [Mass/Vol] 6 mg/dL Normal 6-23 [facility] Comment on above: Performed By: #### 2 4323-8 #### YARIEL AVELAR ([id number]) [facility]) [address] [place] [address] 92554 ECG 12-LEADon 04-27-2024 ECG 12-LEAD Ventricular Rate 89 Atrial Rate 89 P-R Interval 112 QRS Duration 68 Q-T Interval 356 QTC Calculation(Bazett) 433 P Cedar 50 R Cedar 1 T Cedar -3 QRS Count 14 Q Onset 227 P Onset 171 P Offset 219 T Offset 405 QTC Fredericia 405 Diagnosis Normal sinus rhythm Septal infarct , age undetermined Abnormal ECG No previous ECGs available See ED provider note for full interpretation and clinical correlation Confirmed by Desiree Rojo ([id number]) on 05/01/2024 1:20:42 PM Normal [facility] Lipaseon 04-27-2024 Lipase [Catalytic activity/Vol] 13 U/L 9 - 82 U/L [facility] Comment on above: G-qhobvd-q-benzoquin one imine (metabolite of Acetaminophen)will generate erroneously low results in samples for patients that have taken toxic doses of acetaminophen. Lipase [Catalytic activity/V ol]on 04-27-2024 Interpretation and review of laboratory results Normal [facility] Venipuncture immediately after or during the administration of Metamizole may lead to falsely low results. Testing should be performed immediately prior to Metamizole dosing. [facility] SARS coronavirus 2 RNAon SARS-CoV-2 (COVID-19) RNA LAURA+probe Ql (Resp) Detected Abnormal Not Detected [facility] Comment on above: Order Comment: This assay has received FDA Emergency Use Authorization (EUA) and is only authorized for the duration of time that circumstances exist to justify the authorization of the emergency use of in vitro diagnostic tests for the detection of SARS-CoV-2 virus and/or diagnosis of COVID-19 infection under section 564(b)(1) of the Act, 21 U.S.C. 360bbb-3(b)(1). This assay is an in vitro diagnostic nucleic acid amplification test for the qualitative detection of SARS-CoV-2 from nasopharyngeal specimens and has been validated for use at [facility]. Negative results do not preclude COVID-19 infections and should not be used as the sole basis for diagnosis, treatment, or other management decisions. Performed By: #### 9 4500-6 #### YARIEL AVELAR ([id number]) [facility] ([facility]) [address] [place] [address] SARS-CoV-2 (COVID-19) RNA NA A+probe Ql (Resp)on 04-27-2024 Interpretation and review of laboratory results Abnormal [facility] This assay has received FDA Emergency Use Authorization (EUA) and is only authorized for the duration of time that circumstances exist to justify the authorization of the emergency use of in vitro diagnostic tests for the detection of SARS-CoV-2 virus and/or diagnosis of COVID-19 infection under section 564(b)(1) of the Act, 21 U.S.C. 360bbb-3(b)(1). This assay is an in vitro diagnostic nucleic acid amplification test for the qualitative detection of SARS-CoV-2 from nasopharyngeal specimens and has been validated for use at [facility]. Negative results do not preclude COVID-19 infections and should not be used as the sole basis for diagnosis, treatment, or other management decisions. [facility] Sars-CoV-2 PCRon 04-27-2024 SARS-CoV-2 (COVID-19) RNA LAURA+probe Ql (Resp) Detected Abnormal Not Detected [facility] Triacylglycerol lipaseon Lipase [Catalytic activity/Vol] 13 U/L Normal 9-82 [facility] Comment on above: Order Comment: Venip uncture immediately after or during the administration of Metamizole may lead to falsely low results. Testing should be performed immediately prior to Metamizole dosing. Result Comment: N-ac qiio-u-izmycbvhqacf imine (metabolite of Acetaminophen)will generate erroneously low results in samples for patients that have taken toxic doses of acetaminophen. Performed By: #### 3 040-3 #### YARIEL AVELAR ([id number]) [facility] ([facility]) [address] [place] [address] 12218 Tropinin I.cardiac panel Hig h sensitivity methodon 04-27-2024 Interpretation and review of laboratory results Normal [facility] Less than 99th percentile of normal range cutoff- Female and children under 18 years old <14 ng/L; Male <21 ng/L: Negative Repeat testing should be performed if clinically indicated. Female and children under 18 years old 14-50 ng/L; Male 21-50 ng/L: Consistent with possible cardiac damage and possible increased clinical risk. Serial measurements may help to assess extent of myocardial damage. >50 ng/L: Consistent with cardiac damage, increased clinical risk and myocardial infarction. Serial measurements may help assess extent of myocardial damage. NOTE: Children less than 1 year old may have higher baseline troponin levels and results should be interpreted in conjunction with the overall clinical context. NOTE: Troponin I testing is performed using a different testing methodology at [facility] than at other [facility]. Direct result comparisons should only be made within the same method. [facility] Troponin I, High Sensitivity on 04-27-2024 Tropinin I.cardiac panel High sensitivity method 3 ng/L 0 - 13 ng/L [facility] Troponin I.cardiac panelon 0 04-27-2024 Tropinin I.cardiac panel High sensitivity method 3 ng/L Normal 0-13 [facility] Comment on above: Order Comment: Less than 99th percentile of normal range cutoff- Female and children under 18 years old <14 ng/L; Male <21 ng/L: Negative Repeat testing should be performed if clinically indicated. Female and children under 18 years old 14-50 ng/L; Male 21-50 ng/L: Consistent with possible cardiac damage and possible increased clinical risk. Serial measurements may help to assess extent of myocardial damage. >50 ng/L: Consistent with cardiac damage, increased clinical risk and myocardial infarction. Serial measurements may help assess extent of myocardial damage. NOTE: Children less than 1 year old may have higher baseline troponin levels and results should be interpreted in conjunction with the overall clinical context. NOTE: Troponin I testing is performed using a different testing methodology at [facility] than at other [facility]. Direct result comparisons should only be made within the same method. Performed By: #### 8 9577-1 #### YARIEL AVELAR ([id number]) [facility] ([facility]) [address] [place] [address] XR Chest Single viewon 04-27 No radiographic evidence of acute cardiopulmonary pathology. MACRO: None. Signed by: Stephen Canseco 04/27/2024 1:15 AM Dictation workstation: [id number] [facility] Interpreted By: Stephen Canseco, STUDY: XR CHEST 1 VIEW; 04/27/2024 12:27 am INDICATION: Signs/Symptoms:sob. COMPARISON: None. ACCESSION NUMBER(S): [id number] ORDERING CLINICIAN: FRANSISCA MENDEZ FINDINGS: CARDIOMEDIASTINAL SILHOUETTE: Cardiomediastinal silhouette is normal in size and configuration. LUNGS: No pulmonary consolidation, pleural effusion or pneumothorax. ABDOMEN: No remarkable upper abdominal findings. BONES: No acute osseous abnormality. [facility] Stephen Canseco MD - 04/27/2024 Interpreted By: Stephen Canseco, STUDY: XR CHEST 1 VIEW; 04/27/2024 12:27 am INDICATION: Signs/Symptoms:sob. COMPARISON: None. ACCESSION NUMBER(S): [id number] ORDERING CLINICIAN: FRANSISCA MENDEZ FINDINGS: CARDIOMEDIASTINAL SILHOUETTE: Cardiomediastinal silhouette is normal in size and configuration. LUNGS: No pulmonary consolidation, pleural effusion or pneumothorax. ABDOMEN: No remarkable upper abdominal findings. BONES: No acute osseous abnormality. IMPRESSION: No radiographic evidence of acute cardiopulmonary pathology. MACRO: None. Signed by: Stephen Canseco 04/27/2024 1:15 AM Dictation workstation: [id number] [facility] Work Phone: Radiology Study observation (narrative) [facility] Work Phone: XR Chest Single viewOrdered By: Stephen Canseco on 04-27-2024 [facility] Work Phone: XR CHEST 1 VIEWon 04-26-2024 XR CHEST 1 VIEW Interpreted By: Stephen Canseco, STUDY: XR CHEST 1 VIEW; 04/27/2024 12:27 am INDICATION: Signs/Symptoms:sob. COMPARISON: None. ACCESSION NUMBER(S): [id number] ORDERING CLINICIAN: FRANSISCA MENDEZ FINDINGS: CARDIOMEDIASTINAL SILHOUETTE: Cardiomediastinal silhouette is normal in size and configuration. LUNGS: No pulmonary consolidation, pleural effusion or pneumothorax. ABDOMEN: No remarkable upper abdominal findings. BONES: No acute osseous abnormality. IMPRESSION: No radiographic evidence of acute cardiopulmonary pathology. MACRO: None. Signed by: Stephen Canseco 04/27/2024 1:15 AM Dictation workstation: [id number] [facility] XR lumbar spine min 4V*on XR lumbar spine min 4V* [facility] [address] [place] [address] [place] [address] XRay Report Signed Patient: Patito Horne MR#: [id number] : 1970 Acct:[id number] Age/Sex: 53 / F ADM Date: 04/04/24 Loc: ER Room: Type: [facility] ER Attending Dr: Copies to: JAZMYN Calvin Ordering Provider: JAZMYN Calvin Date of Service: 04/04/24 XR/XR lumbar spine min 4V*: Back Pain/Injury LUMBAR SPINE - 6 views CLINICAL HISTORY: Back pain after pushing car 3 days ago. COMPARISON: None FINDINGS: Vertebral body heights appear maintained. Mild facet joint degenerative changes. No significant disc height loss. SI joints demonstrate mild degenerative change. XR/XR lumbar spine min 4V* IMPRESSION: DEGENERATIVE CHANGES INVOLVING THE LUMBAR SPINE WITHOUT SIGNIFICANT DISC HEIGHT LOSS. Impression dictated by: Dequan Lopez Jr., D.ORaymundo04/05/2024 11:49 AM Dictation Location: [facility]--15 Transcribed By: [facility] 04/05/24 1149 Dictated By: Dequan Lopez Jr, DO 04/05/24 1148 Signed By: 04/05/24 1149 Normal [facility] SARS-CoV-2 (COVID-19) RNA NA A+probe Ql (Resp)on 08-28-2022 SARS-CoV-2 (COVID-19) RNA LAURA+probe Ql (Unsp spec) Positive [employer] Other Albumin [Mass/volume] in Ser um or PlasmaOrdered By: Ayah Willingham on 02-13-2022 Albumin [Mass/Vol] 4.0 g/dL 3.2-5.5 [facility] Basophils Auto (Bld) [#/Vol] Ordered By: Ayah Willingham on 02-13-2022 Basophils (Bld) [#/Vol] 0.0 10*3/uL 0.0-0.2 [facility] Basophils/100 WBC Auto (Bld) Ordered By: Ayah Willingham on 02-13-2022 Basophils/100 WBC (Bld) 0.3 % . [facility] Blood hemoglobin measurement (mass/volume)Ordered By: Ayah Willingham on 02-13-2022 Hemoglobin (Bld) [Mass/Vol] 12.3 g/dL 11.8-15.4 [facility] Blood leukocytes automated c ount (number/volume)Ordered By: Ayah Willingham on 02-13-2022 WBC (Bld) [#/Vol] 5.2 10*3/uL 4.5-11.0 [facility] Cholesterol [Mass/volume] in Serum or PlasmaOrdered By: Ayah Willingham on 02-13-2022 Cholesterol [Mass/Vol] 209 mg/dL 140-200 [facility] Comment on above: Chol less than 200 m g/dl low risk Chol 201-239 mg/dl borderline risk Chol 240 mg/dl and greater high risk Cholesterol in LDL Calc [Mas s/Vol]Ordered By: Ayah Willingham on 02-13-2022 Cholesterol in LDL [Mass/Vol] 149 mg/dL 0-100 [facility] Comment on above: LDL ATP III CLASSIFI CATION LDL less than 100 mg/dL Optimal LDL 100-129 mg/dL Near or above optimal LDL 130-159 mg/dL Borderline high LDL 160-189 mg/dL High LDL greater than 189 mg/dL Very high Cholesterol in VLDL Calc [Ma ss/Vol]Ordered By: Ayah Willingham on 02-13-2022 Cholesterol in VLDL [Mass/Vol] 17 mg/dL [facility] Creatinine and Glomerular fi ltration rate.predicted panel (S/P/Bld)Ordered By: Ayah Willingham on 02-13-2022 Creatinine [Mass/Vol] 0.63 mg/dL 0.44-1.03 [facility] Eosinophils Auto (Bld) [#/Vo l]Ordered By: Ayah Willingham on 02-13-2022 Eosinophils (Bld) [#/Vol] 0.1 10*3/uL 0.0-0.45 [facility] Eosinophils/100 WBC Auto (Bl d)Ordered By: Ayah Willingham on 02-13-2022 Eosinophils/100 WBC (Bld) 1.3 % . [facility] Erythrocyte distribution wid th Auto (RBC) [Ratio]Ordered By: Ayah Willingham on 02-13-2022 Erythrocyte distribution width (RBC) [Ratio] 13.6 % 11.9-15.3 [facility] Estimated glomerular filtrat ion rate (GFR) non- AmericanOrdered By: Ayah Willingham on 02-13-2022 GFR/1.73 sq M.predicted among non-blacks MDRD (S/P/Bld) [Vol rate/Area] > 60 mL/Min [facility] Globulin Calc (S) [Mass/Vol] Ordered By: Ayah Willingham on 02-13-2022 Globulin (S) [Mass/Vol] 3.1 g/dL [facility] Hematocrit Auto (Bld) [Volum e fraction]Ordered By: Ayah Willingham on 02-13-2022 Hematocrit (Bld) [Volume fraction] 36.7 % 34.0-46.4 [facility] Laboratory - Hematology and Cell countsOrdered By: Ayah Willingham on 02-13-2022 Nucleated RBC/100 WBC (Bld) [Ratio] 0.0 % 0-0.5 [facility] Lymphocytes Auto (Bld) [#/Vo l]Ordered By: Ayah Willingham on 02-13-2022 Lymphocytes (Bld) [#/Vol] 1.7 10*3/uL 1.00-4.8 [facility] Lymphocytes/100 WBC Auto (Bl d)Ordered By: Ayah Willingham on 02-13-2022 Lymphocytes/100 WBC (Bld) 32.9 % . [facility] MCH Auto (RBC) [Entitic mass ]Ordered By: Ayah Willingham on 02-13-2022 MCH (RBC) [Entitic mass] 29.2 pg 24.7-34.3 [facility] MCHC Auto (RBC) [Mass/Vol]Or dered By: Ayah Willingham on 02-13-2022 MCHC (RBC) [Mass/Vol] 33.5 g/dL 32.0-35.0 [facility] MCV Auto (RBC) [Entitic vol] Ordered By: Ayah Willingham on 02-13-2022 MCV (RBC) [Entitic vol] 87.3 fL 80-100 [facility] Monocytes Auto (Bld) [#/Vol] Ordered By: Ayah Willingham on 02-13-2022 Monocytes (Bld) [#/Vol] 0.3 10*3/uL 0.0-0.8 [facility] Monocytes/100 WBC Auto (Bld) Ordered By: Ayah Willingham on 02-13-2022 Monocytes/100 WBC (Bld) 6.2 % . [facility] Neutrophils Auto (Bld) [#/Vo l]Ordered By: Ayah Willingham on 02-13-2022 Neutrophils (Bld) [#/Vol] 3.1 10*3/uL 1.8-7.7 [facility] Neutrophils/100 WBC Auto (Bl d)Ordered By: Ayah Willingham on 02-13-2022 Neutrophils/100 WBC (Bld) 59.3 % . [facility] No Panel InformationOrdered By: Ayah Willingham on 02-13-2022 Estimated GFR () > 60 mL/Min [facility] Comment on above: GFR estimated refere nce range: According to KDOQI guidelines, <60 ml/min/1.73m2 is sufficient to diagnose a patient with chronic kidney disease. Pharmacy Creatinine Clearance (Chem N/A [facility] Platelet mean volume Auto (B ld) [Entitic vol]Ordered By: Ayah Willingham on 02-13-2022 Platelet mean volume (Bld) [Entitic vol] 8.5 fL 6.3-10.7 [facility] Platelets Auto (Bld) [#/Vol] Ordered By: Ayah Willingham on 02-13-2022 Platelets (Bld) [#/Vol] 219 10*3/uL 150-450 [facility] Protein [Mass/volume] in Ser um or PlasmaOrdered By: Ayah Willingham on 02-13-2022 Protein [Mass/Vol] 7.1 g/dL 6.1-7.9 [facility] RBC Auto (Bld) [#/Vol]Ordere d By: Ayah Willingham on 02-13-2022 RBC (Bld) [#/Vol] 4.20 10*6/uL 3.60-5.00 [facility] Serum or plasma alanine domingo otransferase measurement without P-5'-P (enzymatic activiOrdered By: Ayah Willingham on 02-13-2022 ALT No additional P-5'-P [Catalytic activity/Vol] 14 U/L 10-60 [facility] Serum or plasma albumin/glob ulin mass ratioOrdered By: Ayah Willingham on 02-13-2022 Albumin/Globulin [Mass ratio] 1.3 {ratio} [facility] Serum or plasma alkaline daylin sphatase measurement (enzymatic activity/volume)Ordered By: Ayah Willingham on 02-13-2022 ALP [Catalytic activity/Vol] 39 U/L 32-92 [facility] Serum or plasma aspartate am inotransferase measurement (enzymatic activity/volume)Ordered By: Ayah Willingham on 02-13-2022 AST [Catalytic activity/Vol] 16 U/L 10-42 [facility] Serum or plasma calcium jerardo urement (mass/volume)Ordered By: Ayah Willingham on 02-13-2022 Calcium [Mass/Vol] 9.1 mg/dL 8.2-10.2 [facility] Serum or plasma chloride harika surement (moles/volume)Ordered By: Ayah Willingham on 02-13-2022 Chloride [Moles/Vol] 103 mmol/L 95-114 [facility] Serum or plasma glucose jerardo urement (mass/volume)Ordered By: Ayah Willingham on 02-13-2022 Glucose [Mass/Vol] 102 mg/dL 70-100 [facility] Comment on above: ADA recommended refe rence range Random Glucose Reference Range is dependent on time and content of last meal. Glucose of more than 200 mg/dL in a nonstressed, ambulatory subject supports the diagnosis of Diabetes Mellitus. Serum or plasma high density lipoprotein (HDL) cholesterol measurementOrdered By: Ayah Willingham on 02-13-2022 Cholesterol in HDL [Mass/Vol] 43 mg/dL 35-85 [facility] Comment on above: HDL CHOL ATP-III CLA SSIFICATION Cardiovascular Risk HDL > or equal to 60 mg/dL LOW HDL < 40 mg/dL HIGH Serum or plasma potassium me asurement (moles/volume)Ordered By: Ayah Willingham on 02-13-2022 Potassium [Moles/Vol] 4.0 mmol/L 3.5-5.1 [facility] Serum or plasma sodium measu rement (moles/volume)Ordered By: Ayah Willingham on 02-13-2022 Sodium [Moles/Vol] 139 mmol/L 136-146 [facility] Serum or plasma total biliru bin measurement (mass/volume)Ordered By: Ayah Willingham on 02-13-2022 Bilirubin [Mass/Vol] 0.7 mg/dL 0.3-1.2 [facility] Serum or plasma total carbon dioxide measurement (moles/volume)Ordered By: Ayah Willingham on 02-13-2022 CO2 [Moles/Vol] 26.7 mmol/L 22.0-30.0 [facility] Serum or plasma total choles terol/high density lipoprotein (HDL) cholesterol mass ratOrdered By: Ayah Willingham on 02-13-2022 Cholesterol.total/Choles terol in HDL [Mass ratio] 4.9 {ratio} <5.0 [facility] Serum or plasma urea nitroge n measurement (mass/volume)Ordered By: Ayah Willingham on 02-13-2022 Urea nitrogen [Mass/Vol] 10 mg/dL 9-23 [facility] TSH DL <= 0.005 mIU/L QnOrde red By: Ayah Willingham on 02-13-2022 TSH Qn 2.25 m[IU]/L 0.45-5.33 [facility] Thyroxine (T4) free [Mass/vo lume] in Serum or PlasmaOrdered By: Ayah Willingham on 02-13-2022 Free T4 [Mass/Vol] 0.83 ng/dL 0.61-1.12 [facility] Triglyceride [Mass/volume] i n Serum or PlasmaOrdered By: Ayah Willingham on 02-13-2022 Triglyceride [Mass/Vol] 86 mg/dL 35-149 [facility] Comment on above: TRIG ATP III CLASSIF ICATION TRIG less than 150 mg/dL Normal TRIG 150-199 mg/dL Borderline high TRIG 200-500 mg/dL High TRIG greater than 500 mg/dL Very high Standard traceable to the Center for Disease Conrtrol and Prevention (CDC) test method. Vital Signs Date Time Vital Sign Value Performing Clinician Facility 06-20-2024 07:30-0400 Body temperature 98.2 [degF] Services [facility] Work Phone: [facility] 06-20-2024 07:30-0400 Diastolic blood pressure 79 mm[Hg] Services [facility] Work Phone: [facility] 06-20-2024 07:30-0400 Heart rate 72 /min Services [facility] Work Phone: [facility] 06-20-2024 07:30-0400 Respiratory rate 17 /min Services [facility] Phone: [facility] 06-20-2024 07:30-0400 SaO2% (BldA) [Mass fraction] 96 % [facility] Work Phone: [facility] 06-20-2024 07:30-0400 Systolic blood pressure 119 mm[Hg] Services [facility] Work Phone: [facility] 06-18-2024 14:13-0400 Body height 157.48 cm Services Arden Reed Work Phone: [facility] 06-17-2024 20:15-0400 Body weight 55.33 kg Services [facility] Work Phone: [facility] 06-17-2024 19:41-0400 Diastolic blood pressure 82 mm[Hg] Services [facility] Work Phone: [facility] 06-17-2024 19:41-0400 Heart rate 82 /min Services Arden Reed Work Phone: [facility] 06-17-2024 19:41-0400 Respiratory rate 16 /min Services Arden Reed Work Phone: [facility] 06-17-2024 19:41-0400 SaO2% (BldA) [Mass fraction] 97 % Services [facility] Work Phone: [facility] 06-17-2024 19:41-0400 Systolic blood pressure 159 mm[Hg] Services Arden Reed Work Phone: [facility] 06-17-2024 18:28-0400 Body height 157.48 cm Services [facility] Work Phone: [facility] 06-17-2024 18:28-0400 Body weight 56 kg Services [facility] Work Phone: [facility] 06-17-2024 18:20-0400 Body temperature 98 [degF] Services Arden Reed Work Phone: [facility] 04-27-2024 02:52-0400 Diastolic blood pressure 79 mm[Hg] Fransisca Mendez MD Work Phone: [facility] 04-27-2024 02:52-0400 Heart rate 85 /min Fransisca Mendez MD Work Phone: [facility] 04-27-2024 02:52-0400 Respiratory rate 16 /min Fransisca Mendez MD Work Phone: [facility] 04-27-2024 02:52-0400 SaO2% (BldA) [Mass fraction] 96 % Fransisca Mendez MD Work Phone: [facility] 04-27-2024 02:52-0400 Systolic blood pressure 137 mm[Hg] Fransisca Mendez MD Work Phone: [facility] 04-27-2024 02:12-0400 Body temperature 98.8 [degF] Fransisca Mendez MD Work Phone: [facility] 04-26-2024 23:50-0400 Body height 157.5 cm Fransisca Mendez MD Work Phone: [facility] 04-26-2024 23:50-0400 Body mass index (BMI) [Ratio] 21.95 kg/m2 Fransisca Mendez MD Work Phone: [facility] 04-26-2024 23:50-0400 Body weight 54.43 kg Fransisca Mendez MD Work Phone: [facility] 04-04-2024 19:41-0400 Body height 154.94 cm Services [facility] [employer] Work Phone: [facility] 04-04-2024 19:41-0400 Body temperature 97.5 [degF] Services [facility] [employer] Work Phone: [facility] 04-04-2024 19:41-0400 Body weight 56.35 kg Services [facility] [employer] Work Phone: [facility] 04-04-2024 19:41-0400 Diastolic blood pressure 78 mm[Hg] Services [facility] [employer] Work Phone: [facility] 04-04-2024 19:41-0400 Heart rate 90 /min Services [facility] [employer] Work Phone: [facility] 04-04-2024 19:41-0400 Respiratory rate 18 /min Services Arden Reed Work Phone: [facility] 04-04-2024 19:41-0400 SaO2% (BldA) [Mass fraction] 97 % Services [facility] Work Phone: [facility] 04-04-2024 19:41-0400 Systolic blood pressure 115 mm[Hg] Services [facility] Work Phone: [facility] 04-10-2022 [id number] Body height 160.02 cm Services [facility] Work Phone: [facility] 04-10-2022 10:040 Body weight 53.52 kg Services [facility] Work Phone: [facility] Encounters Encounter Date Encounter Type Care Provider Facility Start: 03-24-2025 ambulatory Yossi Joyner acility:[facility] Start: 09-11-2024 Registered Recurring Ranjan Tl nson DO Work Phone: [facility] Start: 09-07-2024 End: 09-07-2024 ambulatory Ranjan Brown DO Work Phone: [facility] Work Phone: Start: 09-07-2024 End: 09-07-2024 Patient encounter procedure Ranjan Brown DO Work Phone: [facility] [address] Work Phone: Start: 08-24-2024 End: 08-24-2024 ambulatory Melvi D Briceño Facility:[facility] Start: 08-24-2024 End: 08-24-2024 Discharged Recurring Ranjan Brown DO Work Phone: [facility] [place] Start: 08-13-2024 End: 08-13-2024 ambulatory Melvi D Briceño Facility:[facility] Start: 08-13-2024 End: 08-13-2024 Patient encounter procedure Ranjan Brown DO Work Phone: [facility] [address] Work Phone: Start: 07-02-2024 Registered Recurring Services [facility] Work Phone: [facility] [place] Start: 06-30-2024 Registered Recurring Services [facility] Work Phone: [facility] Start: 06-29-2024 End: 06-29-2024 ambulatory Services [facility] Work Phone: [facility] Work Phone: Start: 06-29-2024 End: 06-29-2024 Patient encounter procedure Services [facility] Work Phone: [facility] [address] Work Phone: Start: 06-18-2024 Non-patient / Non-visit Services [facility] Work Phone: [facility] Work Phone: Start: 06-17-2024 End: 06-20-2024 Evaluation and management of inpatient Services [facility] Work Phone: [facility] Work Phone: Start: 06-17-2024 Registered Recurring Services [facility] Work Phone: [facility] Start: 06-15-2024 Registered Recurring Services [facility] Work Phone: [facility] [place] Start: 06-09-2024 Registered Recurring Services [facility] Work Phone: [facility] Start: 06-08-2024 Registered Recurring Services [facility] Work Phone: [facility] [place] Start: 06-04-2024 End: 06-04-2024 ambulatory Services [facility] Work Phone: [facility] Work Phone: Start: 06-04-2024 End: 06-04-2024 Patient encounter procedure Services [facility] Work Phone: [facility] [address] Work Phone: Start: 05-15-2024 Registered Recurring Services [facility] Work Phone: [facility] Start: 05-08-2024 End: 05-08-2024 ambulatory Services [facility] Work Phone: [facility] Work Phone: Start: 05-08-2024 End: 05-08-2024 Patient encounter procedure Services [facility] Work Phone: [facility] [address] Work Phone: Start: 04-27-2024 End: 04-27-2024 Emergency department patient visit [facility] Work Phone: Comment on above: COVID (Primary Dx) Start: 04-17-2024 Registered Recurring Services [facility] Work Phone: [facility] Start: 04-10-2024 End: 04-10-2024 ambulatory Services [facility] Work Phone: [facility] Work Phone: Start: 04-10-2024 End: 04-10-2024 Patient encounter procedure Services [facility] Work Phone: [facility] [address] Work Phone: Start: 04-04-2024 End: 04-04-2024 Emergency department patient visit Services [facility] Work Phone: [facility] Work Phone: Start: 03-19-2024 Registered Recurring Services [facility] Work Phone: [facility] Start: 01-11-2024 End: 01-11-2024 ambulatory Services [facility] Work Phone: [facility] Work Phone: Start: 01-11-2024 End: 01-11-2024 Patient encounter procedure Services [facility] Work Phone: [facility] Work Phone: Start: 08-28-2022 End: 08-28-2022 ambulatory Alissa Lopez Other [employer] Other Start: 08-28-2022 Nursing evaluation o f patient and report Alissa Lopez [facility] Start: 06-26-2022 End: 06-26-2022 ambulatory Services [facility] Work Phone: [facility] Work Phone: Start: 06-26-2022 End: 06-26-2022 Patient encounter procedure Services Arden Reed Work Phone: [facility] Start: 04-10-2022 End: 04-10-2022 Patient encounter procedure Services Family [employer] Work Phone: [facility] [place] Start: 04-02-2022 End: 04-02-2022 Patient encounter procedure Services [facility] Work Phone: [facility] [place] Start: 03-16-2022 End: 03-16-2022 Patient encounter procedure Services [facility] [employer] Work Phone: [facility]CT Scan [place] Start: 02-13-2022 End: 02-13-2022 Patient encounter procedure Services [facility] Work Phone: [facility] [place] Procedures Date Procedure Procedure Detail Performing Clinician Start: 06-17-2024 Bacteria identified in Urine by Culture Services Family [employer] Work Phone: Start: 06-17-2024 Urine culture Ranjan ruiz DO Work Phone: Start: 04-27-2024 Sars-cov-2 detection by dna/rna Fransisca Mendez MD Work Phone: Start: 04-27-2024 Comprehensive metabo lic panel Fransisca Mendez MD Work Phone: Start: 04-27-2024 Radiologic exam ches t single view Fransisca Mendez MD Work Phone: Start: 04-04-2024 X-ray of lumbar spin e, four or more views Services [employer] Phone: Start: 01-11-2024 Screening mammograph y of bilateral breasts Services [facility] Phone: Start: 04-10-2022 MRI of pelvis with contrast Services [facility] Phone: Start: 04-02-2022 Ultrasonography of liver Services [facility] Phone: Start: 03-16-2022 Computed tomography of abdomen and pelvis with contrast Services [facility] Phone: Start: 07-12-2020 Mammography Fransisca tamayo MD Work Phone: Plan of Treatment Date Care Activity Detail Author Start: 06-20-2024 [facility] Start: 06-17-2024 Hospital admission [facility] Start: 06-17-2024 [facility] Start: 06-17-2024 Urine culture [facility] Start: 06-17-2024 Bacteria identified in Urine by Culture Urine Culture [facility] Start: 05-10-2024 Influenza vaccination Influenz a Vaccine (#1) [facility] Start: 04-04-2024 X-ray of lumbar spin e, four or more views XR lumbar spine min 4V* [facility] Start: 04-04-2024 XR Lumbar spine GE 4 Views [facility] Start: 01-11-2024 Screening mammograph y of bilateral breasts MM screening mammo BI w/CAD [facility] Start: 05-10-2023 COVID-19 Vaccine ( season) COVID-19 Vaccine ( season) [facility] Start: 04-10-2022 MRI of pelvis with contrast MR pelvis wo/w con [facility] Start: 04-10-2022 End: 04-10-2022 Patient encounter procedure Departed Clinical [facility] [place] Start: 07-12-2021 Screening for malign ant neoplasm of breast Mammogram [facility] Start: 2020 Zoster Vaccines (1 of 2) Zoste r Vaccines (1 of 2) [facility] Start: 1992 DTaP/Tdap/Td Vaccine s (1 - Tdap) DTaP/Tdap/Td Vaccines (1 - Tdap) [facility] Start: 1991 Screening for malign ant neoplasm of cervix [facility] Start: 1989 Hepatitis B Vaccines (1 of 3 - 19+ 3-dose series) Hepatitis B Vaccines (1 of 3 - 19+ 3-dose series) [facility] Start: 1988 [facility]atitis C [facility] Start: 1971 MMR Vaccines (1 of 1 - Standard series) MMR Vaccines (1 of 1 - Standard series) [facility] Start: 1970 HIV screening HIV Screening [facility] Start: 1970 Lipid panel Lipid Panel [facility] Start: 1970 Screening for malign ant neoplasm of colon [facility] Start: 1970 Yearly Adult Physical Yearly Adult P hysical [facility] End: 04-26-2024 ECG 12 lead [email or web address] Service Area Work Phone: Comment on above: Once for 1 Occurrenc es starting 04/26/2024 until 04/26/2024 Patient Education [facility] Work Phone: Patient referral [facility] Work Phone: Immunizations Immunization Date Immunization Notes Care Provider Fa cili 07-04-2023 influenza virus vaccine, unspecified formulation Fransisca Mendez MD Work Phone: [facility] Work Phone: 06-26-2022 COVID-19 mRNA Bivale nt Booster (Moderna) Services [facility] Work Phone: [facility] 07-04-2021 COVID-19 mRNA-1273 (Moderna) Services [facility] Work Phone: [facility] 09-28-2020 COVID-19 mRNA-1273 (Moderna) Services [facility] Work Phone: [facility] 08-31-2020 COVID-19 mRNA-1273 (Moderna) Services [facility] Work Phone: [facility] Payers Date Payer Category Payer Unknown [id number] 1 2024 Worker's Compensation [id number] 2023 Unknown [facility] [id number] 2023-Present Charlie Moreno [address] [place] [address] [id number] 2023 Unknown [id number] 2022 Self-pay [id number] 1970 Unknown [id number] 246 Medicaid Medicaid [id number] Medicaid [employer] [id number] Unknown [id number] Unknown [id number] 31 Unknown [id number] 31 Unknown [id number] 31 Unknown [id number] 31 Unknown [id number] 31 Unknown [id number] 31 Unknown [id number] 31 Unknown [id number] 31 Unknown [id number] 31 Unknown [id number] 31 Social History Date Type Detail Facility Start: 10-19-2019 End: 06-18-2024 Tobacco smoking status NHIS Never smoked tobacco (finding) [facility] Start: 1970 Sex Assigned At Female [facility] Sex Assigned At [employer] Other Tobacco smoking status WYIS Tobacco smoking consumption unknown [facility] Work Phone: Start: 1970 Sex assigned at Not on file [facility] Work Phone: Start: 04-16-2024 End: 04-27-2024 Exposure to SARS-CoV-2 (event) Yes [facility] Work Phone: Start: 09-12-2024 Sex Female (finding) [facility] NEGATED: Highlighted row [facility] Goals Date Patient Goal Desired Activity /State Functional Status Date Assessment Result Facility 06-20-2024 Functional status Patient at Baseline [facility] Work Phone: Mental Status Date Assessment Result Facility 06-20-2024 Cognitive function Cognitive Sta tus Patient at Baseline [facility] Work Phone: Clinical Notes 08-28-2022 to 06-19-2024 Note Date & Type Note Facility 06-19-2024 Progress note Note Date/Time June 19, 2024 9:54am [facility] [address] [place] [address] Psychiatry Progress Note Signed Patient: Patito Cristobal MR#: [id number] : 1970 Acct:[id number] Age/Sex: 53 / F Adm Date: 4 Loc: 1S Room: [address] [place] [address] Type : ADM IN Attending Dr: Yossi Marcial MD Copies to: ~ Date of Service: 06/19/2024 Subjective Subjective Narrative: Mrs. 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 She is on her second day in the ching, and says she is feeling good today. She seems less anxious and is talking slower and in a more comprehensible way. She says her depression is a 5out of 10, anxiety 5 out of 10 and denies suicidal or homicidal ideation. She does not feel like her weatherization operations manager wants to harm her here today, she said she was talking with all the nice people and feels better. She says the meds have no significant side effects, she slept well although the bed is very hard and hurt her back a little bit and is eating breakfast this morning. She has no complaints and nothing else she wants to discuss. Patient was personally seen by me on the day of the encounter. I reviewed the history and performed the warner elements of the assessment. I formulated the planof care and confirmed this with the resident as noted below Sleeping and eating well Attending group appropriately Denies SI/HI tolerating current meds MSE Appearance: grossly normal. Fair grooming and hygiene, calm, cooperative, engaged in the interview. Good eye contact. Normal psychomotor activity. Mental Status: mental status grossly normal Mood: Depressed Affect: mood-congruent affect Speech and Movement: speech and movement normal. Regular rate, rhythm, volume, and tone. Non pressured. Attitude: cooperative Thought Process: normal Thought Content: Negative for paranoid thoughts this morning. Denies hallucinations suicidal or homicidal ideation. Does not appear to be respondingto internal stimuli. Insight: fair Judgment: fair Exam Physical Exam Vital Signs: Temp Pulse Resp BP Pulse Ox O2 Del Method 97.5 F L 76 16 114/73 98 Room Air 06/19/24 07:30 06/19/24 07:30 06/19/24 07:30 06/19/24 07:30 06/19/24 07:30 06/19/24 07:30 Assessment/Plan Assessment/Plan (1) Paranoid delusion: (2) Depression: Plan Patient presenting due to anxiety, depression and paranoid delusion. Currently at baseline and will anticipate discharge over the weekend Continue to monitor mental status Continue home medication Continue Abilify 2 mg at bedtime. Monitor suicidal behaviors for safety of self (15-minute face check). Encourage medication adherence. Risks, benefits, and alternatives of treatment explained Add vitamin D due to low vitamin D level. Recommend? attending groups and psychoeducation for building coping skills. Risks, benefits and indications of medications were discussed with the patient.? Involve friends/family members to coordinate care and ensure appropriate outpatient appointments are scheduled prior to discharge. Documented By: Yossi Marcial MD 4 [id number] Signed By: <Electronically signed by Yossi Marcial MD> 06/19/[address] [place] [address] Work Phone: 1(821) 890-539210-10-2024 History and physical note Author Yossi cole [facility] June 18, 2024 11:48am Note Date/Time June 18, 2024 1 0:47am [facility] [address] [place] [address] Psychiatry H&P Signed Patient: Patito Cristobal MR#: [id number] : 1970 Acct:[id number] Age/Sex: 53 / F Adm Date: 4 Loc: Room: [address] [place] [address] Type: ADM IN Attending Dr: Yossi Marcial MD Copies to: MD Marli Sharp NO FAMILY PHYSICIAN~ Date of Service: 06/18/2024 HPI History of Present Illness History of present illness: Mrs. 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 She presented to the emergency department with these issues. Ms. renner speaks some Marshallese, though to facilitate and ensure proper information, a history department chair was used. Patient was personally seen by me on the day of the encounter. I reviewed the history and performed the warner elements of the assessment. I formulated the planof care and confirmed this with the resident as noted below Patient presents due to paranoid thoughts and concenrs for psychosis. She was a difficult historian and gave somewhat disorganized information. She says she isworried her weatherization operations manager at work will harm her because she has not been working as hard recently due to her back strain and other issues. When asked what she doesfor work, she actually says she was terminated in May and has not been working there anymore. I tried to evaluate through the history department chair if these werelegitimate concerns, could this previous employer try to harm this person for about working. When asked about other mood issues, she says she has depression and anxiety and was taking a medication prescribed by her doctor that she is unable to name. Her chart lists fluoxetine. She does states she takes it every day. She deniedany drug use or alcohol use and says she lives in a private home with her mother, who unfortunately does not speak Marshallese so we cannot obtain collateral from her. Past psych history: Anxiety depression Past hospitalizations: She endorses being hospitalized in 2012 in [place] for something similar. Past suicide attempts: Denies Previous medications: Fluoxetine Alcohol and drug use: Denies Living: In house with her mother Employment: Unemployed Review of Systems Constitutional: Pt denies fatigue, malaise. Neuro: Denies dizziness/lightheadedness. Denies TBI, seizure, memory loss. Denies numbness/tingling in extremities HEENT: Denies vision/hearing changes. Pulmonary: Endorses shortness of breath and difficulty taking a deep breath. She gestures that it is linked to her back pain. [facility] Nurse could not give me more information. Cardiac: Denies chest pain/pressure. Denies edema, palpitations. GI: Endorses some nausea and vomiting over the last few weeks. Could not give me more information about this. : Denies dysuria, hematuria, polyuria. ? Physical exam General: not in any acute distress Skin: intact HEENT: head atraumatic, face symmetrical. Pulm: ?Breathing normally without excessive effort. Specifically could not hearany wheezing crackles or any other signs of respiratory distress. Cardio: Regular rate and rhythm Abdomen: Slightly tender left lower quadrant. But nothing seemed very significant. Musculoskeletal: Moves all extremities, normal strength all extremities. Neuro: Pt alert, oriented x3. Gait normal. ? CNI: Intact, normal olfaction ? CNII: Visual lemons intact ? ? ?CNIII,IV,: EOM intact, no nystagmus. ? ? ?CNV: Sensation intact to light touch. ? ? ?CNVII: Raises eyebrows, smile/frown, puff out cheeks symmetrically. ? ? ?CNVIII: Hearing intact bilaterally. ? ? ?CNIX,X: Voice normal, soft palate elevation normal, symmetrical. ? ? ?CNXI: Shoulder shrug strong, equal bilaterally. ? ? ?CNXII: Tongue protrusion midline MSE Appearance: grossly normal. Fair grooming and hygiene, calm, cooperative, engaged in the interview. Good eye contact. Normal psychomotor activity. Mental Status: mental status grossly normal Mood: Depressed Affect: mood-congruent affect Speech and Movement: speech and movement normal. Regular rate, rhythm, volume, and tone. Non pressured. Attitude: cooperative Thought Process: normal Thought Content:+ve for paranoid thoughts. Denies hallucinations suicidal or homicidal ideation. Does not appear to be responding to internal stimuli. Insight: limited [facility] Medical History (Updated 06/18/24 @ 10:47 by Marli Colvin DO, RES) Miscarriage 2013 Depression Anxiety Surgical History No pertinent past surgical history Social History Smoking Status: Never smoker Substance Use Type: None Social History Comments: D&C Meds Medications and Allergies Allergies penicillin G procaine Allergy (Unknown, Verified 06/17/24 18:09) passed out Penicillins Allergy (Verified 06/17/24 18:09) passed out Home Medications fluoxetine 20 mg capsule 20 mg PO DAILY 10/19/19 [History Confirmed 06/17/24] omeprazole 20 mg capsule,delayed release 20 mg PO DAILY 10/19/19 [History Confirmed 06/17/24] trazodone 50 mg tablet 25 mg PO HS PRN insomnia 10/19/19 [History Confirmed 06/17/24] lidocaine 5 % topical patch 1 patch topical DAILY PRN pain #30 ea 04/04/24 [Rx Confirmed 06/17/24] Exam Physical Exam Vital Signs: Temp Pulse Resp BP Pulse Ox O2 Del Method 97.9 F 67 18 110/66 97 Room Air 06/18/24 07:30 06/18/24 07:30 06/18/24 07:30 06/18/24 07:30 06/18/24 07:30 06/18/24 07:30 Results - Psychiatry Labs 06/17/24 18:25 06/17/24 18:25 Psychiatry Labs: 06/17/24 06/17/24 18:20 18:25 RBC 4.34 Hgb 12.5 Hct 37.2 MCV 85.8 MCH 28.7 MCHC 33.5 RDW 13.8 Plt Count 232 MPV 8.2 Sodium 139 Potassium 3.9 Chloride 104 Carbon Dioxide 26.1 Anion Gap 12.8 BUN 13 Creatinine 0.62 Calcium 9.7 Total Bilirubin 0.3 AST 16 ALT 13 Alkaline Phosphatase 44 Total Protein 7.6 Albumin 4.5 Urine Color Colorless Urine Appearance Clear Urine pH 7.0 Ur Specific [place] 1.010 Urine Protein Negative Urine Glucose (UA) Normal Urine Ketones Negative Urine Occult Blood Negative Urine Nitrite Negative Ur Leukocyte Esterase 4+ H Urine RBC 1-2 Urine WBC 10-19 H Assessment/Plan (1) Paranoid delusion: Plan PLAN Patient presenting due to anxiety, depression and paranoid delusion. Continue to monitor mental status Continue home medication Add Abilify 2 mg at bedtime. Monitor suicidal behaviors for safety of self (15-minute face check). Encourage medication adherence. Risks, benefits, and alternatives of treatment explained Recommend? attending groups and psychoeducation for building coping skills. Risks, benefits and indications of medications were discussed with the patient.? Involve friends/family members to coordinate care and ensure appropriate outpatient appointments are scheduled prior to discharge. Documented By: Yossi Marcial MD 4 1040 Signed By: <Electronically signed by Yossi Marcial MD> 06/18/24 1148 <Electronically signed by Marli Colvin> 06/18/24 10[address] [facility] Work Phone: 1(647) 737-365110-09-2024 Evaluation note* Diagnosis Onset Date Resolution Status Admit Date Depression acute June 17, 024 7:18pm Mood disorder acute June 7:18pm Paranoid delusion acute June 17, 2024 7:18pm Pyuria acute June 17 7:18pm [facility] Work Phone: 1(815) 307-346508-18-2024 Emergency department Note* Fransisca Mendez MD - 04/26/2024 11:35 PM EDT HPI Chief Complaint Patient presents with Fever Per MARTTI: fever, chest tightness, back pain, stomach pain, radiating upwards 53-year-old female presenting for evaluation of flulike symptoms that have worsened over the last 2to 3 days. Exposed to coworkers with COVID recently. Patient having fevers, body aches, chest tightness, stomach pain. Took acetaminophen earlier this evening. No significant shortness of breath. No v omiting but has some intermittent nausea. History provided by: Patient Patient History No past medical history on file. No past surgical history on file. No family history on file. Social History Tobacco Use Smoking status: Not on file Smokeless tobacco: Not on file Substance Use Topics Alcohol use: Not on file Drug use: Not on file Physical Exam ED Triage Vitals [04/26/24 2350] Temperature Heart Rate Respirations BP (!) 38.1 C (100.6 F) (!) 101 18 133/82 Pulse Ox Temp Source Heart Rate Source Patient Position 97 % Temporal Monitor Sitting BP Location FiO2 (%) Right arm -- Physical Exam Vitals and nursing note reviewed. Constitutional: General: She is not in acute distress. HENT: Head: Atraumatic. Mouth/Throat: Mouth: Mucous membranes are moist. Pharynx: Oropharynx is clear. Eyes: Conjunctiva/sclera: Conjunctivae normal. Cardiovascular: Rate and Rhythm: Normal rate and regular rhythm. Pulses: Normal pulses. Pulmonary: Effort: Pulmonary effort is normal. No respiratory distress. Breath sounds: Normal breath sounds. Abdominal: General: There is no distension. Palpations: Abdomen is soft. Tenderness: There is no abdominal tenderness. There is no guarding or rebound. Musculoskeletal: General: No deformity. Cervical back: Neck supple. Skin: General: Skin is warm and dry. Neurological: Mental Status: She is alert and oriented to person, place, and time. Mental status is at baseline. Cranial Nerves: No cranial nerve deficit. Sensory: No sensory deficit. Motor: No weakness. Psychiatric: Mood and Affect: Mood normal. Behavior: Behavior normal. ED Course & MDM Diagnoses as of 04/27/24 0234 COVID No data recorded [place] Coma Scale Score: 15 (04/26/24 2340 : Ayah Pearce RN) Labs Reviewed CBC WITH AUTO DIFFERENTIAL - Abnormal Result Value WBC 5.4 nRBC 0.0 RBC 4.15 Hemoglobin 11.8 (*) Hematocrit 36.0 MCV 87 MCH 28.4 MCHC 32.8 RDW 12.8 Platelets 190 Neutrophils % 70.2 Immature Granulocytes %, Automated 0.2 Lymphocytes % 19.5 Monocytes % 9.5 Eosinophils % 0.4 Basophils % 0.2 Neutrophils Absolute 3.79 Immature Granulocytes Absolute, Automated 0.01 Lymphocytes Absolute 1.05 (*) Monocytes Absolute 0.51 Eosinophils Absolute 0.02 Basophils Absolute 0.01 COMPREHENSIVE METABOLIC PANEL - Abnormal Glucose 109 (*) Sodium 138 Potassium 3.8 Chloride 105 Bicarbonate 25 Anion Gap 12 Urea Nitrogen 6 Creatinine 0.59 eGFR >90 Calcium 8.8 Albumin 4.1 Alkaline Phosphatase 59 Total Protein 7.2 AST 42 (*) Bilirubin, Total 0.3 ALT 44 SARS-COV-2 PCR - Abnormal Coronavirus 2019, PCR Detected (*) Narrative: This assay has received FDA Emergency Use Authorization (EUA) and is only authorized for the duration of time that circumstances exist to justify the authorization of the emergency use of in vitro diagnostic tests for the detection of SARS-CoV-2 virus and/or diagnosis of COVID-19 infection under sec tion 564(b)(1) of the Act, 21 U.S.C. 360bbb-3(b)(1). This assay is an in vitro diagnostic nucleic acid amplification test for the qualitative detection of SARS-CoV-2 from nasopharyngeal specimens andhas been validated for use at [facility]. Negative results do not preclude COVID-19 infections and should not be used as the sole basis for diagnosis, treatment, or other management decisions. TROPONIN I, HIGH SENSITIVITY - Normal Troponin I, High Sensitivity 3 Narrative: Less than 99th percentile of normal range cutoff- Female and children under 18 years old <14 ng/L; Male <21 ng/L: Negative Repeat testing should be performed if clinically indicated. Female and children under 18 years old 14-50 ng/L; Male 21-50 ng/L: Consistent with possible cardiac damage and possible increased clinical risk. Serial measurements may help to assess extent of myocardial damage. >50 ng/L: Consistent with cardiac damage, increased clinical risk and myocardial infarction. Serial measurements may help assess extent of myocardial damage. NOTE: Children less than 1 year old may have higher baseline troponin levels and results should be interpreted in conjunction with the overall clinical context. NOTE: Troponin I testing is performed using a different testing methodology at [facility] than at other [facility]. Direct result comparisons should only be made within the same method. LIPASE - Normal Lipase 13 Narrative: Venipuncture immediately after or during the administration of Metamizole may lead to falsely low results. Testing should be performed immediately prior to Metamizole dosing. XR chest 1 view Final Result No radiographic evidence of acute cardiopulmonary pathology. MACRO: None. Signed by: Stephen Canseco 04/27/2024 1:15 AM Dictation workstation: [id number] Medical Decision Making 53-year-old female presenting with flulike symptoms over the last couple days recent exposure to COVID. On evaluation patient is febrile, no acute distress. Lungs are clear on exam. Abdomen is soft and benign. Diagnostic evaluation performed including labs, chest x-ray and COVID PCR testing. Patient given Toradol IV and 1 L IV fluid bolus. COVID PCR testing is positive likely explaining patient's symptoms. Lab work reviewed and is overall unremarkable. No leukocytosis, normal troponin, normal renal function and LFTs. Normal lipase. Chest x-ray is clear without infiltrate. Patient's heart rate improved following treatment of fever. Discussed home-going instructions with the patient including OTC medications for treatment of symptomsand appropriate quarantine length. Amount and/or Complexity of Data Reviewed ECG/medicine tests: ordered and independent interpretation performed. Decision- making details documented in ED Course. Details: Twelve-lead ECG obtained at 0055 by my interpretation demonstrates normal sinus rhythm with a rate of 89, no acute ST elevation or depression, T wave inversions in leads III and aVF. Procedure Procedures Fransisca Mendez MD 04/27/[address] [facility] Work Phone: 1(840) 921-646108-18-2024 Physician Emergency department Note* Fransisca Mendez MD - 04/26/2024 11:35 PM EDT HPI Chief Complaint Patient presents with Fever Per MARTTI: fever, chest tightness, back pain, stomach pain, radiating upwards 53-year-old female presenting for evaluation of flulike symptoms that have worsened over the last 2to 3 days. Exposed to coworkers with COVID recently. Patient having fevers, body aches, chest tightness, stomach pain. Took acetaminophen earlier this evening. No significant shortness of breath. No v omiting but has some intermittent nausea. History provided by: Patient Patient History No past medical history on file. No past surgical history on file. No family history on file. Social History Tobacco Use Smoking status: Not on file Smokeless tobacco: Not on file Substance Use Topics Alcohol use: Not on file Drug use: Not on file Physical Exam ED Triage Vitals [04/26/24 2350] Temperature Heart Rate Respirations BP (!) 38.1 C (100.6 F) (!) 101 18 133/82 Pulse Ox Temp Source Heart Rate Source Patient Position 97 % Temporal Monitor Sitting BP Location FiO2 (%) Right arm -- Physical Exam Vitals and nursing note reviewed. Constitutional: General: She is not in acute distress. HENT: Head: Atraumatic. Mouth/Throat: Mouth: Mucous membranes are moist. Pharynx: Oropharynx is clear. Eyes: Conjunctiva/sclera: Conjunctivae normal. Cardiovascular: Rate and Rhythm: Normal rate and regular rhythm. Pulses: Normal pulses. Pulmonary: Effort: Pulmonary effort is normal. No respiratory distress. Breath sounds: Normal breath sounds. Abdominal: General: There is no distension. Palpations: Abdomen is soft. Tenderness: There is no abdominal tenderness. There is no guarding or rebound. Musculoskeletal: General: No deformity. Cervical back: Neck supple. Skin: General: Skin is warm and dry. Neurological: Mental Status: She is alert and oriented to person, place, and time. Mental status is at baseline. Cranial Nerves: No cranial nerve deficit. Sensory: No sensory deficit. Motor: No weakness. Psychiatric: Mood and Affect: Mood normal. Behavior: Behavior normal. ED Course & MDM Diagnoses as of 04/27/24 0234 COVID No data recorded [place] Coma Scale Score: 15 (04/26/24 2340 : Ayah Pearce RN) Labs Reviewed CBC WITH AUTO DIFFERENTIAL - Abnormal Result Value WBC 5.4 nRBC 0.0 RBC 4.15 Hemoglobin 11.8 (*) Hematocrit 36.0 MCV 87 MCH 28.4 MCHC 32.8 RDW 12.8 Platelets 190 Neutrophils % 70.2 Immature Granulocytes %, Automated 0.2 Lymphocytes % 19.5 Monocytes % 9.5 Eosinophils % 0.4 Basophils % 0.2 Neutrophils Absolute 3.79 Immature Granulocytes Absolute, Automated 0.01 Lymphocytes Absolute 1.05 (*) Monocytes Absolute 0.51 Eosinophils Absolute 0.02 Basophils Absolute 0.01 COMPREHENSIVE METABOLIC PANEL - Abnormal Glucose 109 (*) Sodium 138 Potassium 3.8 Chloride 105 Bicarbonate 25 Anion Gap 12 Urea Nitrogen 6 Creatinine 0.59 eGFR >90 Calcium 8.8 Albumin 4.1 Alkaline Phosphatase 59 Total Protein 7.2 AST 42 (*) Bilirubin, Total 0.3 ALT 44 SARS-COV-2 PCR - Abnormal Coronavirus 2019, PCR Detected (*) Narrative: This assay has received FDA Emergency Use Authorization (EUA) and is only authorized for the duration of time that circumstances exist to justify the authorization of the emergency use of in vitro diagnostic tests for the detection of SARS-CoV-2 virus and/or diagnosis of COVID-19 infection under sec tion 564(b)(1) of the Act, 21 U.S.C. 360bbb-3(b)(1). This assay is an in vitro diagnostic nucleic acid amplification test for the qualitative detection of SARS-CoV-2 from nasopharyngeal specimens andhas been validated for use at [facility]. Negative results do not preclude COVID-19 infections and should not be used as the sole basis for diagnosis, treatment, or other management decisions. TROPONIN I, HIGH SENSITIVITY - Normal Troponin I, High Sensitivity 3 Narrative: Less than 99th percentile of normal range cutoff- Female and children under 18 years old <14 ng/L; Male <21 ng/L: Negative Repeat testing should be performed if clinically indicated. Female and children under 18 years old 14-50 ng/L; Male 21-50 ng/L: Consistent with possible cardiac damage and possible increased clinical risk. Serial measurements may help to assess extent of myocardial damage. >50 ng/L: Consistent with cardiac damage, increased clinical risk and myocardial infarction. Serial measurements may help assess extent of myocardial damage. NOTE: Children less than 1 year old may have higher baseline troponin levels and results should be interpreted in conjunction with the overall clinical context. NOTE: Troponin I testing is performed using a different testing methodology at [facility] than at other [facility]. Direct result comparisons should only be made within the same method. LIPASE - Normal Lipase 13 Narrative: Venipuncture immediately after or during the administration of Metamizole may lead to falsely low results. Testing should be performed immediately prior to Metamizole dosing. XR chest 1 view Final Result No radiographic evidence of acute cardiopulmonary pathology. MACRO: None. Signed by: Stephen Canseco 04/27/2024 1:15 AM Dictation workstation: [id number] Medical Decision Making 53-year-old female presenting with flulike symptoms over the last couple days recent exposure to COVID. On evaluation patient is febrile, no acute distress. Lungs are clear on exam. Abdomen is soft and benign. Diagnostic evaluation performed including labs, chest x-ray and COVID PCR testing. Patient given Toradol IV and 1 L IV fluid bolus. COVID PCR testing is positive likely explaining patient's symptoms. Lab work reviewed and is overall unremarkable. No leukocytosis, normal troponin, normal renal function and LFTs. Normal lipase. Chest x-ray is clear without infiltrate. Patient's heart rate improved following treatment of fever. Discussed home-going instructions with the patient including OTC medications for treatment of symptomsand appropriate quarantine length. Amount and/or Complexity of Data Reviewed ECG/medicine tests: ordered and independent interpretation performed. Decision- making details documented in ED Course. Details: Twelve-lead ECG obtained at 0055 by my interpretation demonstrates normal sinus rhythm with a rate of 89, no acute ST elevation or depression, T wave inversions in leads III and aVF. Procedure Procedures Fransisca Mendez MD 04/27/245 [facility] Work Phone: 1(360) 370-762807-27-2024 Hospital Discharge instructions Additional Instructions Take the ibuprofen every 6 hours for pain take with food May apply 1-2 lidocaine patches over sorest areas daily May use ice or warm moist heat to sore area whichever helps the best Light duty for 1 week Follow-up with [employer] especially if your back is not getting better Return to the ER for more severe pain weakness in your legs unable to control your bladder or bowel or any other [facility]Fire[facility] Work Phone: [phone]) 330-522012-20-2022 Evaluation note* Encounter Date Diagnosis Assessment Notes Treatment Notes Treatment Clinical Notes Aug, Contact with and (suspected) exposure to other viral communicable diseases (ICD-10 - Z20.828) Aug, COVID-19 (ICD-10 - U07.1) [facility] Other Discharge summary Author Yossi cole [facility] June 20, 2024 10:56am Note Date/Time June 20, 2024 1 0:50am [facility] [address] [place] [address] Discharge Summary Signed Patient: Patito Cristobal MR#: [id number] : 1970 Acct:[id number] Age/Sex: 53 / F Adm Date: 4 Loc: Room: [address] [place] [address]: Yossi Marcial MD Copies to: Yossi Marcial MD NO FAMILY PHYSICIAN~ Providers Date of Discharge: 06/20/24 Discharging Provider: Yossi Marcial Primary Care Provider: PHYSICIAN NO FAMILY Discharge Diagnosis (1) Paranoid delusion: (2) Depression: Final Diagnosis Final Discharge Diagnosis: Major depressive disorder Summary Hospital Course Hospital course: Mrs. 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 She presented to the emergency department with these issues. Ms. renner speaks some Marshallese, though to facilitate and ensure proper information, a history department chair was used. Patient presents due to paranoid thoughts and concerns for psychosis. She was a difficult historian and gave somewhat disorganized information. She says she isworried her weatherization operations manager at work will harm her because she has not been working as hard recently due to her back strain and other issues. When asked what she doesfor work, she actually says she was terminated in May and has not been working there anymore. I tried to evaluate through the history department chair if these werelegitimate concern. She can get these thoughts out of her head. She felt threatened When asked about other mood issues, she says she has depression and anxiety and was taking a medication prescribed by her doctor that she is unable to name. Her chart lists fluoxetine. She does states she takes it every day. She deniedany drug use or alcohol use and says she lives in a private home with her mother, who unfortunately does not speak Marshallese so we cannot obtain collateral from her. Past psych history: Anxiety depression Past hospitalizations: She endorses being hospitalized in 2013 in [place] for something similar. Past suicide attempts: Denies Previous medications: Fluoxetine Alcohol and drug use: Denies Living: In house with her mother Employment: Unemployed Review of Systems Constitutional: Pt denies fatigue, malaise. Neuro: Denies dizziness/lightheadedness. Denies TBI, seizure, memory loss. Denies numbness/tingling in extremities HEENT: Denies vision/hearing changes. Pulmonary: Endorses shortness of breath and difficulty taking a deep breath. She gestures that it is linked to her back pain. [facility] Nurse could not give me more information. Cardiac: Denies chest pain/pressure. Denies edema, palpitations. GI: Endorses some nausea and vomiting over the last few weeks. Could not give me more information about this. : Denies dysuria, hematuria, polyuria. ? Physical exam General: not in any acute distress Skin: intact HEENT: head atraumatic, face symmetrical. Pulm: ?Breathing normally without excessive effort. Specifically could not hearany wheezing crackles or any other signs of respiratory distress. Cardio: Regular rate and rhythm Abdomen: Slightly tender left lower quadrant. But nothing seemed very significant. Musculoskeletal: Moves all extremities, normal strength all extremities. Neuro: Pt alert, oriented x3. Gait normal. ? CNI: Intact, normal olfaction ? CNII: Visual lemons intact ? ? ?CNIII,IV,: EOM intact, no nystagmus. ? ? ?CNV: Sensation intact to light touch. ? ? ?CNVII: Raises eyebrows, smile/frown, puff out cheeks symmetrically. ? ? ?CNVIII: Hearing intact bilaterally. ? ? ?CNIX,X: Voice normal, soft palate elevation normal, symmetrical. ? ? ?CNXI: Shoulder shrug strong, equal bilaterally. ? ? ?CNXII: Tongue protrusion midline MSE Appearance: grossly normal. Fair grooming and hygiene, calm, cooperative, engaged in the interview. Good eye contact. Normal psychomotor activity. Mental Status: mental status grossly normal Mood: Euthymic Affect: mood-congruent affect Speech and Movement: speech and movement normal. Regular rate, rhythm, volume, and tone. Non pressured. Attitude: cooperative Thought Process: normal Thought Content: Negative for paranoid thoughts. Denies hallucinations suicidalor homicidal ideation. Does not appear to be responding to internal stimuli. Insight: Fair Judgment: Fair Hospital course: Since admission, patient has been steadily improving with addition of Abilify. She has gotten progressively calmer and appears less depressed and tearful. When asked, she says she feels much better now. The patient denies current suicidal or homicidal ideation, and verbalized the intent to notify staff if there are such thoughts. The patient denies recent suicidal or self injurious behaviors. When asked about if she is still fed threatened by her previous weatherization operations manager and previous coworkers, she said the thoughts are no longer intrusive. She said dimitris longer works there and she decided just to forget about them. She will find another job and will just not think about what ever had happened between her coworkers and her. She said she is not worried about her weatherization operations manager harming her, and it made no sense. She does not work there anymore. She seems to understandwhat is going on and has fair judgment and insight. She says she feels safe going back home and has good support in her mother and friends. She said her friend will pick her up if we tell her around what time. She seems calm, cooperative and fully alert and oriented. The patient is currently functioning at her baseline. She is doing fairly well. She reports improved mood and appetite, improved ability to enjoy certain activities, reduction of feelings of worthlessness or guilt, and improved focus and concentration. She continues to struggle with anxiety occasionally. She was outin the common area socializing and communicating with peers appropriately. On the day of discharge she reported that she is feeling better. She denied any suicidal thoughts. She was looking forward to returning home and following withoutpatient services. She stated that her family was supportive and felt safe athome. She denied any depression, suicidality, hallucinations, or reuben. She is tolerating her medications without difficulty. She denied current SI/HI and verbalized the intent to notify staff if she has such thoughts. She denied any suicidal or self-injurious behaviors. I did talk with her about the importance of medication compliance as she believes that medications made a gooddifference. Sleep and appetite are ok. Patient has continued to attend individual and group therapy and found them useful to understand their clinical symptoms well and also developed coping skills that were individualized for them and patient feels comfortable applying them when they return home. Appearance: dressed casually Mental Status: mental status grossly normal Mood: Euthymic mood Affect: Normal affect Speech and Movement: speech and movement normal and speech clear Attitude: cooperative Thought Process: normal Thought Content: Denied hallucinations, no homicidality and no suicidality Insight: fair Judgment: fair Impulse control: fair Safe discharge Planning: Patient had no suicidal ideation from several hospitalization and with cessationof delusional thoughts and significant anxiety, aftercare plans were solidified. The patient was able to formulate a believable Safety Plan. Discharge plans were discussed with the patient and the treatment team. All agreed with the discharge plan. On the day of discharge, she was evaluated and had no complaints. She denied any SI/HI. He felt hopeful and motivated. Condition Condition at Discharge: Stable Time Spent with Patient Time spent providing/coordinating discharge services (# min): 93 Discharge Plan Discharge Plan Patient Disposition: Home Activity: No Activity Restriction Diet: Regular Additional Instructions: Important Contact Information You can call [facility] at [phone] any time day or night if you have emergent questions or question regarding discharge instructions. If at any time you are feeling an increase inyour psychiatric symptoms, call your physician or behavioral healthcare provider. If any time you have thoughts of harming yourself or others contact one of the following: Call 88 (available 01/04) Crisis Text Line (available 01/04) text 4HOPE to [phone] [facility] Hope Line (available 8 a.m. Midnight) call [phone] ([phone]) Regular Diet No Activity Restrictions Instructions: Depression, Adult (DC), [facility] Behavioral Health DC Instructions, Know your Meds Prescriptions: New aripiprazole 2 mg Tablet 2 mg PO QHS 15 Days Qty: 15 2RF Continued trazodone 50 mg tablet 25 mg PO HS PRN (Reason: insomnia) Patient Comments: TAKE ONE-HALF (1/2)TTABLET BY MOUTH ONCEIDAILY AT NIGHT NEEDED SLEEP omeprazole 20 mg capsule,delayed release(DR/EC) 20 mg PO DAILY Patient Comments: TAKE 1 CAPSULE BY MOUTH ONCE DAILY fluoxetine 20 mg capsule 20 mg PO DAILY Patient Comments: TAKE ONE (1) CAPSULE BYUMOUTH ONCE DAILY lidocaine 5 % adhesive patch,medicated 1 patch topical DAILY PRN (Reason: pain) Qty: 30 0RF Rx Instructions: leave on most painful area for up to 12 hrs Follow Up: [facility], Urgent Care [Other] (See urgent care with any medical need until established with a PCP. ) Angela Huddleston MD [Contract Physician] - (Please call this provider on Saturday06/22/2024 to set up a follow up appointment for your Psychiatric needs. ) Exam Physical Exam Vital Signs: Temp Pulse Resp BP Pulse Ox O2 Del Method 98.2 F 72 17 119/79 96 Room Air 06/20/24 07:30 06/20/24 07:30 06/20/24 07:30 06/20/24 07:30 06/20/24 07:30 06/20/24 07:30 Documented By: Yossi Marcial MD 4 [id number] Signed By: <Electronically signed by Yossi Marcial MD> 06/20/24 1056 [facility] Work Phone: Evaluation noteNo assessment information available [facility] Work Phone: Evaluation note* Diagnosis Onset Date Resolution Status Depression acute Mood disorder acute Paranoid delusion acute Pyuria acute [facility] Work Phone: Evaluation note* Diagnosis COVID- Primary documented in this encounter [facility] Work Phone: History general Narrative - Reported* Type Description Date Medical History GERD Medical History constipation Surgical History No Surgical history information Hospitalization History 2012 [facility] Other Hospital Discharge instructions* Attachments The following attachments cannot be sent through Care Everywhere. * COVID-19 overview (Marshallese) [facility]: Chief Complaint and Reason for Visit Chief Complaint N91.2 R10.33 R10.32 R93.5 N96 N85.8 R10.2 R95.3 N85.8 R10.2 R93.5 Chief Complaint N85.8 R10.2 R95.3 N85.8 R10.2 R93.5 VACCINE Chief Complaint Screening Chief Complaint Screening back injury-[facility] Chief Complaint back injury-[facility] S39.012A Chief Complaint back injury-[facility] S39.012A S39.012A Chief Complaint back injury-[facility] S39.012A S39.012A S39.012A Low back muscle strain Chief Complaint back injury-[facility] S39.012A S39.012A S39.012A Low back muscle strain [facility] Chief Complaint back injury-[facility] S39.012A S39.012A S39.012A Low back muscle strain [facility] mhp Reason for Visit Depression Mood disorder Paranoid delusion Pyuria Chief Complaint back injury-[facility] S39.012A S39.012A S39.012A [facility] S39.012A Low back muscle strain Reason for Visit Depression Mood disorder Paranoid delusion Pyuria Chief Complaint Admit Date p June 17, 2024 7: 18pm p June 18, 2024 1 0:40am S39.012A June 29, 2024 1 0:00am S39.012A August 13, 2024 2 :00pm Low back muscle strain August 24 2:45pm [facility] F/U September 07, 2024 2:00pm September 11, 2024 12 :01pm Reason for Visit Admit Date Depression June 17, 2024 7: 18pm Mood disorder June 17, 2024 7: 18pm Paranoid delusion June 17, 2024 7: 18pm Pyuria June 17, 2024 7: 18pm Advance Directives No Advanced Directives Records Found Advance Directive Response Recorded Date/ Time Advance Directives No July 7:35pm Advance Directive Response Recorded Date/ Time Advance Directives No July 6:35pm Summary Purpose Family History No Family History Records FoundNo Family History Records FoundNo Family History Records Found Additional Source Comments Care Teams (unrecognized sec tion and content) Team Status: Active Member Role Status Dates PHYSICIAN NO FAMILY Primary Care Provider Active Team Status: Inactive Member Role Status Dates Services Family Health Primary Care Provider Active Start: April 04, 2024 End: April 04, 2024 MELINDA Calvin Emergency Provider Active Start: April 04, 2024 End: April 04, 2024 Team Status: Inactive Member Role Status Dates Services Family Health Primary Care Provider Active Start: April 10, 2024 End: April 10, 2024 Melvi Briceño APRN Attending Provider Active Start: April 10, 2024 End: April 10, 2024 Team Status: Inactive Member Role Status Dates Services Family Health Primary Care Provider Active Start: May 08, 2024 End: May 08, 2024 Melvi Briceño APRN Attending Provider Active Start: May 08, 2024 End: May 08, 2024 Team Status: Inactive Member Role Status Dates Services Family Health Primary Care Provider Active Start: June 04, 2024 End: June 04, 2024 Melvi Briceño APRN Attending Provider Active Start: June 04, 2024 End: June 04, 2024 Team Status: Active Member Role Status Dates Services Family Health Primary Care Provider Active Start: June 15, 2024 Melvi Briceño APRN Attending Provider Active Start: June 15, 2024 Team Status: Active Member Role Status Dates Services Family Health Primary Care Provider Active Start: June 17, 2024 Yossi Marcial MD Attending Provider Active Start: June 17, 2024 Team Status: Active Member Role Status Dates Ranjan Brown DO Emergency Provider Active Sta rt: June 17, 2024 PHYSICIAN NO FAMILY Primary Care Provider Active Start: June 17, 2024 Yossi Marcial MD Admit Provide r, Attending Provider Active Start: June 17, 2024 Team Status: Inactive Member Role Status Dates Services Family Health Primary Care Provider Active CLAUDETTE Ahn Attending Provide r Active Team Status: Active Member Role Status Dates Services Family Health Primary Care Provider Active Team Status: Inactive Member Role Status Dates Services Family Health Primary Care Provider Active Markus Luo MD Attending Provider Active Team Status: Inactive Member Role Status Dates Services Family Health Primary Care Provider Active Start: January 11, 2024 End: January 11, 2024 CLAUDETTE Salvador Attending Provider Active Start: January 11, 2024 End: January 11, 2024 Team Status: Active Member Role Status Dates Services Family Health Primary Care Provider Active Start: March 19, 2024 Yossi Marcial MD Attending Provider Active Start: March 19, 2024 Team Status: Active Member Role Status Dates Services Family Health Primary Care Provider Active Start: April 17, 2024 Yossi Marcial MD Attending Provider Active Start: April 17, 2024 Team Status: Active Member Role Status Dates Services Family Health Primary Care Provider Active Start: May 15, 2024 Yossi Marcial MD Attending Provider Active Start: May 15, 2024 Team Status: Active Member Role Status Dates Services Family Health Primary Care Provider Active Start: June 08, 2024 Melvi Briceño APRN Attending Provider Active Start: June 08, 2024 Team Status: Active Member Role Status Dates Services Family Health Primary Care Provider Active Start: June 09, 2024 Yossi Marcial MD Attending Provider Active Start: June 09, 2024 Team Status: Inactive Member Role Status Dates Ranjan Brown DO Emergency Provider Active Sta rt: June 17, 2024 End: June 20, 2024 PHYSICIAN NO FAMILY Primary Care Provider Active Start: June 17, 2024 End: June 20, 2024 Yossi Marcial MD Admit Provide r, Attending Provider Active Start: June 17, 2024 End: June 20, 2024 Team Status: Active Member Role Status Dates Ranjan Brown DO Emergency Provider Active Sta rt: June 18, 2024 PHYSICIAN NO FAMILY Primary Care Provider Active Start: June 18, 2024 Yossi Marcial MD Admit Provide r, Attending Provider, Other Provider Active Start: June 18, 2024 Team Status: Inactive Member Role Status Dates PHYSICIAN NO FAMILY Primary Care Provider Active Start: June 29, 2024 End: June 29, 2024 Melvi Briceño APRN Attending Provider Active Start: June 29, 2024 End: June 29, 2024 Team Status: Active Member Role Status Dates Services Family Health Primary Care Provider Active Start: June 30, 2024 Yossi Marcial MD Attending Provider Active Start: June 30, 2024 Team Status: Active Member Role Status Dates Services Family Health Primary Care Provider Active Start: July 02, 2024 Melvi Briceño APRN Attending Provider Active Start: July 02, 2024 Wet Process Technician Relationship Specialty Start Date End Date Generic Provider, No Assigned [place], [place] [address] PCP - General Government Affairs Specialist 04/26/24 Team Status: Inactive Member Role Status Dates PHYSICIAN NO FAMILY Primary Care Provider Active Start: August 13, 2024 End: August 13, 2024 Melvi Briceño APRN Attending Provider Active Start: August 13, 2024 End: August 13, 2024 Team Status: Inactive Member Role Status Dates Services [facility] Primary Care Provider Active Start: August 24, 2024 End: August 24, 2024 Melvi Briceño APRN Attending Provider Active Start: August 24, 2024 End: August 24, 2024 Team Status: Inactive Member Role Status Dates PHYSICIAN NO FAMILY Primary Care Provider Active Start: September 07, 2024 End: September 07, 2024 Melvi Briceño APRN Attending Provider Active Start: September 07, 2024 End: September 07, 2024 Team Status: Active Member Role Status Dates Services [facility] Primary Care Provider Active Start: September 11, 2024 Yossi Marcial MD Attending Provider Active Start: September 11, 2024 Goals (unrecognized section and content) Goals may be documented in a n alternate sectionGoals may be documented in an alternate sectionGoals may be documented in an alternate sectionNo InformationGoals may be documented in an alternate sectionGoals may be documented in an alternate sectionGoals may be documented in an alternate sectionGoals may be documented in an alternate sectionGoals may be documented in an alternate sectionGoals may be documented in an alternate section REASON FOR VISIT (unrecogniz ed section and content) Reason Comments Fever Per MARTTI: fever, c hest tightness, back pain, stomach pain, radiating upwards INFORMATION SOURCE (unrecogn ized section and content) DATE CREATED AUTHOR 05/01/2024 [facility] DATE CREATED AUTHOR AUTHOR'S ORGANIZ ATION 05/03/2024 [facility] DATE CREATED AUTHOR AUTHOR'S ORGANIZ ATION 03/28/2025 [facility] Scheduled Active and Recently Administ ered Medications (unrecognized section and content) Medication Order 04/25/2024 04/26/2024 04/27/2024 ketorolac (Toradol) injection 15 mg (COMPLETED) 15 mg, intravenous, Once, On Sat04/27/24 at 0000, For 1 dose 0035 (Given - Provid er: Carmelita Jiang RN) lactated Ringer's bolus 1,000 mL (COMPLETED) 1,000 mL, intravenous, at 999 mL/hr, Administer over 1 Hours, Once, On Sat04/27/24 at 0000, For 1 dose 0036 (New Bag - Prov ider: Carmelita Jiang RN)0136 (Stopped - Provider: Yvonne Youssef RN) ondansetron (Zofran) injection 4 mg (COMPLETED) 4 mg, intravenous, Once, On Sat04/27/24 at 0115, For 1 dose, When administering via IV Push, administer over 3-5 minutes. 0206 (Given - Provid er: Yvonne Youssef RN) FOR RECORDS PERTAINING TO PATIENTS WHO ARE OR HAVE BEEN ENROLLED IN A CHEMICAL DEPENDENCY/SUBSTANCEABUSE PROGRAM, SOME INFORMATION MAY BE OMITTED. This clinical summary was aggregated from multiple sources. Caution should be exercised in using it in the provision of clinical care. This summary normalizes information from multiple sources, and as a consequence, information in this document may materially change the coding, format and clinical context of patient data. In addition, data may be omitted in some cases. CLINICAL DECISIONS SHOULD BE BASED ON THE PRIMARY CLINICAL RECORDS. [employer] [facility]. provides no warranty or guarantee of the accuracy or completeness of information in this document.
--- OUTSIDE RECORDS SUMMARY | 2025-04-10 07:21 | XMS_ITS | Patient Health Record ---
Author Organization [facility] [place] Address [address] [place] [address] Care Team Providers Care Electrical Controls Technician Name Role Phone Paulino Orozco Primary Care Provider Allergies No Known Allergies Results Component Value Reference Range Notes CBC AUTO DIFF Reviewed date:11/11/2024 09:13:39 PM Interpretation: Performing Lab: Notes/Report: [facility] , White Blood Count 6.7 4.0-11.0 10 3/uL Red Blood Count 4.73 4.20-5.40 10 6/uL Hemoglobin 13.3 12.0-16.0 g/dL Hematocrit 40.9 36.0-48.0 % Mean Corpuscular Volume 86.5 81.0-99.0 fL Mean Corpuscular Hemoglobin 28.1 26.7-34.0 pg Mean Corpuscular HGB Conc 32.5 29.9-35.2 g/dL Red Cell Distribution Width 12.9 11.0-15.0 % Platelet Count 243 150-450 10 3/uL Mean Platelet Volume 10.1 9.5-13.5 fL Neutrophils Percent Auto 66.5 43.0-75.0 % Lymphocytes Percent Auto 27.6 20.5-60.0 % Monocytes Percent Auto 4.8 1.7-12.0 % Eosinophils Percent Auto 0.7 0.9-7.0 % Basophils Percent Auto 0.3 0.2-2.0 % Immature Granulocytes Pct Auto 0.1 0.0-0.5 % Neutrophils Absolute Auto 4.5 1.4-6.5 10 3/uL Lymphocytes Absolute Auto 1.9 1.2-3.8 10 3/uL Monocytes Absolute Auto 0.3 0.3-0.8 10 3/uL Eosinophils Absolute Auto 0.1 0.0-0.7 10 3/uL Basophils Absolute Auto 0.0 0.0-0.1 10 3/uL Immature Granulocytes Abs Auto 0.01 0.00-0.03 10 3/uL Performing Lab: see note ML - [facility] LB IRON Reviewed date:11/11/2024 09:13:39 PM Interpretation: Performing Lab: Notes/Report: [facility] , Iron 57.0 50.0-170.0 ug/dL Performing Lab: see note - [facility] LB QuantiFERON-TB Gold Plus Reviewed date:11/15/2024 09:53:35 AM Interpretation: Performing Lab: Notes/Report: [facility] , QuantiFERON Incubation . Incubation performed. Reference Range: . QuantiFERON-TB Gold Plus Negative Negative No response to M tuberculosis antigens detected. Infection with M tuberculosis is unlikely, but high risk individuals should be considered for additional testing (ATS/IDSA/CDC Clinical Practice Guidelines, 2017). The reference range is an Antigen minus Nil result of <0.35 IU/mL. Chemiluminescence immunoassay methodology Performed at: [facility] [address] [id number] Product Marketing Manager: Enoc Marley PhD, Phone: [phone] QuantiFERON Criteria Comment . QuantiFERON-TB Gold Plus is a qualitative indirect test for M tuberculosis infection (including disease) and is intended for use in conjunction with risk assessment, radiography, and other medical and diagnostic evaluations. The QuantiFERON-TB Gold Plus result is determined by subtracting the Nil value from either TB antigen (Ag) value. The Mitogen tube serves as a control for the test. QuantiFERON TB1 Ag Value 0.17 . IU/mL QuantiFERON TB2 Ag Value 0.15 . IU/mL QuantiFERON Nil Value 0.15 . IU/mL QuantiFERON Mitogen Value 4.67 . IU/mL Performing Lab: see note - [facility] LB XR chest 2V Reviewed date:11/12/2024 08:53:24 PM Interpretation: Performing Lab: Notes/Report: Source Facility: [facility] [place] [address] XRay Report Signed Patient: STEFANY CRISTOBAL MR#: [id number] : 1970 Acct:[id number] Age/Sex: 54 / F ADM Date: 11/11/24 Loc: LAB Attending Dr: Mateo Orozco M.D. Ordering Physician: Mateo Orozco M.D. Date of Service: 11/11/24 Procedure(s): XR chest 2V Accession Number(s): [id number] cc: Mateo Orozco M.D. [place] [address] Patient Name: STEFANY CRISTOBAL MRN: [facility]:[id number] date: 1970 Sex: F Assigned Patient Location: LAB Current Patient Location: LAB Accession/Order Number: [id number] Exam Date: 11/11/2024 23:11 Report Date: 11/11/2024 23:12 At the request of: MATEO OROZCO MD Procedure: XR chest 2V Chest 2 views CLINICAL HISTORY: Chronic Cough, Dyspnea , Epigastric Pain COMPARISON: None FINDINGS: Heart normal size. Lungs are clear. No free air. XR/XR chest 2V IMPRESSION: NO ACUTE CARDIOPULMONARY ABNORMALITY. Impression dictated by: Missy Connor Jr.ORaymundo11/11/2024 11:12 PM Dictation Location: [place] [address] Electronically authenticated by: [id number] Y Date: 11/11/2024 23:12 Dictated By: Dequan Lopez M.D. Signed By: 11/11/24 2314 DD/ 11 TD/TT: [employer]: [place] [address] XRay Report Signed Patient: BRYN CRISTOBAL MR#: [id number] : 1970 Acct:[id number] Age/Sex: 54 / F ADM Date: 11/11/24 Loc: LAB Attending Dr: Antonio Orozco M.D. Ordering Physician: Mateo Orozco M.D. Date of Service: 11/11/24 Procedure(s): XR jae st 2V Accession Number(s): [id number] cc: Mateo Orozco M.D. The [place] [id number] Patient Name: STEFANY CRISTOBAL MRN: [id number] date: 1970 Sex: F Assigned Patient Location: LAB Current Patient Location: LAB Accession/Order Numb er: [id number] Exam Date: 11/11/2024 23:11 Report Date: 11/11/2024 23:12 At the request of: MATEO OROZCO MD Procedure: XR chest 2V Chest 2 views CLINICAL HISTORY: Chronic Cough, Dyspnea , Epigastric Pain COMPARISON: None FINDINGS: Heart normal size. Lungs are clear. No free air. XR/XR chest 2V IMPRESSION: NO ACUTE CARDIOPULMONARY ABNORMALITY. Impression dictated by: Dequan Lopez Jr. D.ORaymundo11/11/2024 11:12 PM Dictation Location: [facility] Electronically authenticated by: [id number] Y Date: 11/11/2024 23:12 Dictated By: Dequan Lopez M.D. Signed By: 11/11/242313 DD/ 11 TD/TT: [employer]: VITAMIN D 25 [place] Reviewed date:11/11/2024 09:13:39 PM Interpretation: Performing Lab: Notes/Report: [facility] , Vitamin D 25.8 <20 ng/mL Vit D deficient 20-<30 ng/mL Vit D insufficient 30-100 ng/mL Vit D sufficient >100 ng/mL Potential Toxicity Performing Lab: see note ML - [facility] LB TSH Reviewed date:11/11/2024 09:13:39 PM Interpretation: Performing Lab: Notes/Report: [facility] , Thyroid Stimulating Hormone 2.782 0.358-3.740 uIU/mL Performing Lab: see note ML - [facility] LB T4 Reviewed date:11/11/2024 09:13:39 PM Interpretation: Performing Lab: Notes/Report: [facility] , T4 Thyroxine 7.90 4.80-13.90 ug/dL Performing Lab: see note ML - [facility] LB PROF 14(COMP METB) Reviewed date:11/11/2024 09:13:39 PM Interpretation: Performing Lab: Notes/Report: [facility] , Sodium 142 136-145 mmol/L Potassium 4.0 3.5-5.1 mmol/L Chloride 105 98-107 mmol/L Carbon Dioxide 27.3 21.0-32.0 mmol/L Anion Gap 13.7 Glucose 105 74-106 mg/dL Blood Urea Nitrogen 11.0 7.0-18.0 mg/dL Creatinine 0.65 0.55-1.02 mg/dL Estimated GFR ( Migdalia >60 >=60 mL/min/1.73m 2 Estimated GFR (Non- Nicci >60 >=60 mL/min/1.73m 2 BUN Creatinine Ratio 16.9 Calcium 9.3 8.5-10.1 mg/dL Bilirubin Total 0.3 0.2-1.0 mg/dL Aspartate Amino Transferase 16 15-37 U/L Alanine Aminotransferase 15 14-59 U/L Alkaline Phosphatase 63 46-116 U/L Total Protein 7.8 6.4-8.2 g/dL Albumin Level 4.0 3.4-5.0 g/dL Globulin 3.8 Albumin Globulin Ratio 1.1 Performing Lab: see note ML - [facility] LIPID PROFILE Reviewed date:11/11/2024 09:13:39 PM Interpretation: Performing Lab: Notes/Report: [facility] , Triglycerides 121 <=150 mg/dL Cholesterol 195 <=200 mg/dL HDL Cholesterol 51 40-60 mg/dL > or =60 mg/dl - LOW CARDIOVASCULAR RISK <40 mg/dl - HIGH CARDIOVASCULAR RISK LDL Cholesterol Calculated 119.8 <100 mg/dl OPTIMAL 100-129 mg/dl NEAR OR ABOVE OPTIMAL 130-159 mg/dl BORDERLINE HIGH 160-189 mg/dl HIGH >190 mg/dl VERY HIGH VLDL CHOLESTEROL 24.2 Chol HDL Ratio 3.8 3.3 - 4.4 LOW RISK 4.4 - 7.1 AVERAGE RISK 7.1 - 11.0 MODERATE RISK >11.0 HIGH RISK Performing Lab: see note ML - [facility] GLYCOHEMOGLOBIN A1C Reviewed date:11/11/2024 09:13:39 PM Interpretation: Performing Lab: Notes/Report: [facility] , Glycohemoglobin A1C 5.9 4.5-6.2 % ADA RECOMMENDED LIMIT 4.0 - 6.0 ADA THERAPEUTIC TARGET < 7.0 ACTION SUGGESTED > 7.0 Estimated Average Glucose 123 Performing Lab: see note ML - [facility] LB FREE T3 Reviewed date:11/11/2024 09:13:39 PM Interpretation: Performing Lab: Notes/Report: [facility] , Free T3 3.02 2.18-3.98 pg/mL Performing Lab: see note ML - [facility] LB Reason For Referral Diagnosis 1 Polyp of descending colon, unspecified type (K63.5) Referral Organization [facility] Medicine Referring Provider First Name Paulino Referring Provider Last Name Wu Referring Provider Speciality Family Med juan Referred Provider Juventino Bowen Referred Provider Specialty General Surg marcia Referral Priority Routine Medications Medication SIG (Take, Route, Frequency, Duration) Notes Start Date End Date Status predniSONE 20 MG 2 tablets Orally Onc e a day for 5 days 04/08/2025 Active Breo Ellipta 100-25 MCG/ACT 1 puff Inhal ation Once a day 11/10/2024 Active Aspirin 81 81 MG 1 tablet Orally Once a day for 30 day(s) 04/08/2025 Active FLUoxetine HCl 20 MG Oral for 30 Days Active ARIPiprazole 30 MG Oral for 30 Days Active Protonix 40 MG 1 tablet Orally Once a day for 30 days 11/10/2024 Active traZODone HCl 50 MG TAKE 1 TABLET BY MARIANO TH AT BEDTIME Oral for 30 Days Active levoFLOXacin 750 MG 1 tablet Orally Once a day for 10 day(s) 04/08/2025 Active Social History Tobacco Use: Social History Observation Description Date Details (start date - stop date) Never Smoker NA - NA Tobacco Control (Standard) Question Answer Notes Tobacco use: Nonsmoker AUDIT-C (Standard) Question Answer Notes Did you have a drink containing alcohol in the p ast year? No Points 0 Interpretation Negative Problems Problem Type SNOMED Code ICD Code Onset Dates Problem Status W/U Status Risk Notes Problem Depression (851747398) Depression (F32.9) Active confirmed Problem Dyspnea (R06.00) Active confirmed Problem Chronic cough (30892265) Chronic cough (R05.3) Active confirmed Vital Signs Oximetry 98 % 04/08/2025 Blood pressure diastolic 80 mm Hg 04/08/2025 Height 62 in 04/08/2025 Blood pressure systolic 124 mm Hg 04/08/2025 Weight 130.2 lbs 04/08/2025 BMI 23.81 kg/m2 04/08/2025 Procedures Procedure Date Ordered Date Performed Result Body Sit e CARDIO Stress Test - Cardiolite 04/08/2025 N/A Encounters Encounter Location Date Provider Diagnosis [address] [address] 04/08/2025 Paulino Hoy Acute bronchitis J20 .9 and Chest pain R07.[address] [address] 11/10/2024 Paulino Hoy Chronic cough R05.3 ; Dyspnea R06.00 ; Depression F32.9 and Epigastric pain R10.[address] [address] 03/05/2025 Paulino Hoy Chronic cough R05.3 and Dyspnea R06.[address] [address] 12/29/2024 Paulino Hoy Acute bronchitis, unspecified organism J20.[address] [address] 11/11/2024 Paulino Hoy [address] [address] 11/12/2024 Paulino Hoy [address] [address] 11/15/2024 Paulino Hoy [address] [address] 03/05/2025 Paulino Hoy Polyp of descending colon, unspecified type K63.[address] [address] 03/10/2025 Paulino Hoy Assessments Encounter Date Diagnosis (ICD Code) Assessment Notes Treatment Notes Treatment Clinical Notes Section Notes 11/10/2024 Chronic cough (ICD-10 - R05.3) 11/10/2024 Dyspnea (ICD-10 - R06.00) 03/05/2025 Chronic cough (ICD-10 - R05.3) 03/05/2025 Dyspnea (ICD-10 - R06.00) 12/29/2024 Acute bronchitis, unspecified organism (ICD-10 - J20.9) Rest and drink more liquids, especially water. You may use a humidifier or vaporizer to help keep the drainage moist. Fycg-ssz-szkacnk Nasal Saline may help the stuffy and runny nose. Use Ibuprofen and or Tylenol as needed for fever, chills, body aches or pain. Children 5 years old should not be given soyf-atn-zztrbwe cough and cold medications such as guaifenesin and dextromethorphan. If you're over age 5, you may try kovo-ptf-bbrznmo cold medications such as guaifenesin and dextromethorphan, or multi-symptom cold reliever such as Dayquil to help reduce the symptoms. Antibiotics have been prescribed. You should take these until completed and follow the directions. Antibiotics can sometimes cause upset stomach, and in rare cases, serious allergic reactions or serious gastrointestinal problems. If you start having severe abdominal pain, severe vomiting, or bloody diarrhea, you should be reevaluated by your physician or urgent care immediately. Follow up with your Primary Care Provider or return to clinic if symptoms do not improve within 3-5 days. If you develop severe symptoms such as shortness of breath, repeated vomiting, coughing up blood, or chest pain you should go to the emergency room or call 911 04/08/2025 Acute bronchitis (ICD-10 - J20.9) 03/05/2025 Polyp of descending colon, unspecified type (ICD-10 - K63.5) 04/08/2025 Chest pain (ICD-10 - R07.9) stared on asa a dya and arraing ing stress testing 11/10/2024 Depression (ICD-10 - F32.9) 11/10/2024 Epigastric pain (ICD-10 - R10.13) Plan Of Treatment Pending Test Test Name Order Date HEMOGLOBIN A1C (GLYCO) 11/10/2024 IRON, TOTAL 11/10/2024 LIPID PANEL (CHOL/TRIG/HDL/LDL) 11/11/19 25 CBC WITH DIFF 11/10/2024 VITAMIN D, 25 LEVEL (TOTAL) 11/10/2024 CARDIO Stress Test - Cardiolite 04/08/20 25 High Sensitivity Troponin 04/08/2025 BNP 04/08/2025 CBC AUTO DIFF 04/08/2025 CULTURE SPUTUM 11/10/2024 PROF 14(COMP METB) 04/08/2025 QUANTIFERON TB GOLD PLUS 11/10/2024 SPUTUM GRAM STAIN 11/10/2024 XR CHEST 2 V 11/10/2024 THYROID PANEL (T4/TSH/FREE T3) THYROID PANEL (T4/TSH/FREE T3) CMP (COMP MET MINA) w/eGFR CKD-EPI 2024 Next Appt Details Provider Name:Paulino Orozco, 01:45:00 PM, [address] [place], [address], Insurance Providers Payer Name Payer Address Payer Phone Subscriber Number Group Number Insured Name Patient Relationship to Insured Coverage Start Date Coverage End Date [employer] [place] [employer] [address] [address] [place] [address] [phone] [id number] Stefany Cristobal Self - patient is the insured
--- OUTSIDE RECORDS SUMMARY | 2025-04-10 07:22 | XMS_ITS | Clinical Summary ---
Author Organization [facility] Address [address] [place] [address] Care Team Providers Care Wedding Makeup Artist Name Role Phone Unavailable Primary Care Provider Unavailabl e Social History Tobacco Use Types Packs/Day Years Used Date Smoking Tobacco: Never Assessed Comments Unknown Sex and Gender Information Value Date Recorded Sex Assigned at Not on file Legal Sex Female 11:05 PM EDT Gender Identity Not on file Sexual Orientation Not on file Last Filed Vital Signs Vital Sign Reading Time Taken Comments Blood Pressure 100/70 09/15/2020 12:00 PM EST Pulse - - Temperature - - Respiratory Rate - - Oxygen Saturation - - Inhaled Oxygen Concentration - - Weight 54 kg (119 lb) 09/15/2020 12:00 PM EST Height 157.5 cm (5' 2 ) 09/15/2020 12:00 PM EST Body Mass Index 21.77 09/15/2020 12:00 PM EST Plan of Treatment Not on file
--- OUTSIDE RECORDS SUMMARY | 2025-04-10 07:22 | XMS_ITS | Clinical Summary ---
Author Organization [facility] Address [address] [place] [address] Phone Care Team Providers Care Telemarketer Name Role Phone Generic Provider, No Assigned Pcp MD Primary Car e Provider Unavailable Allergies Active Allergy Reactions Criticality Noted Date Comments Penicillins Syncope 04/26/2024 Medications ibuprofen 600 mg tabletIndicatio ns:COVID Take 1 tablet (600 mg) by mouth every 8 hours if needed for mild pain (1 - 3) or fever (temp greater than 38.0 C). 30 tablet 04/27/2024 Active Social History Tobacco Use Types Packs/Day Years Used Date Smoking Tobacco: Never Assessed Comments Unknown Sex and Gender Information Value Date Recorded Sex Assigned at Not on file Legal Sex Female 11:35 PM EDT Gender Identity Not on file Sexual Orientation Not on file Last Filed Vital Signs Vital Sign Reading Time Taken Comments Blood Pressure 137/79 04/27/2024 2:52 AM EDT Pulse 85 04/27/2024 2:52 AM EDT Temperature 37.1 C (98.8 F) 04/27/2024 2:12 AM EDT Respiratory Rate 16 04/27/2024 2:52 AM EDT Oxygen Saturation 96% 04/27/2024 2:52 AM EDT Inhaled Oxygen Concentration - - Weight 54.4 kg (120 lb) 04/26/2024 11:50 PM EDT Height 157.5 cm (5' 2 ) 04/26/2024 11:50 PM EDT Body Mass Index 21.95 04/26/2024 11:50 PM EDT Plan of Treatment Health Maintenance Due Date Last Done Comments CT Colonography 1970 Colonoscopy 1970 Colorectal Cancer Screening 1970 FIT-DNA (Cologuard) 1970 FIT 1970 HIV Screening 1970 Lipid Panel 1970 Sigmoidoscopy 1970 Yearly Adult Physical 1970 MMR Vaccines (1 of 1 - Standard series) 1971 Hepatitis C Screening 1988 Hepatitis B Vaccines (1 of 3 - 19+ 3-dose series) 1989 Cervical Cancer Screening 1991 HPV/Cotest 1991 Pap Smear 1991 DTaP/Tdap/Td Vaccines (1 - Tdap) 1992 Pneumococcal Vaccine (1 of 1 - PCV) 2020 Zoster Vaccines (1 of 2) 2020 Mammogram 07/12/2021 07/12/2020 COVID-19 Vaccine ( - season) 2024 06/26/2022, 07/04/2021, 09/28/2020, Additional history exists Influenza Vaccine (#1) 2025 07/04/2023, 2020 HIB Vaccines Aged Out No longer eligi ble based on patient's age to complete this topic HPV Vaccines Aged Out No longer eligi ble based on patient's age to complete this topic Hepatitis A Vaccines Aged Out No long er eligible based on patient's age to complete this topic IPV Vaccines Aged Out No longer eligi ble based on patient's age to complete this topic Meningococcal Vaccine Aged Out No edith russell eligible based on patient's age to complete this topic Rotavirus Vaccines Aged Out No longer eligible based on patient's age to complete this topic Insurance [facility] MEDICA[employer] Care Teams Telemarketer Relationship Specialty Start Date End Date Generic Provider, [place] [address] PCP - [employer] Land Surveying Party Chief 04/26/24
--- OUTSIDE RECORDS SUMMARY | 2025-04-10 07:22 | XMS_ITS | Patient Health Record ---
Author Organization [facility] Address [address] [place] [address] Care Team Providers Care Composite Bond Technician Name Role Phone Ayah Willingham Primary Care Provider [phone] Allergies Allergen (clinical drug ingredient) Drug/Non Drug Allergy documented on EMR Reaction Allergy Type Onset Date Status PCN (uncoded) Unknown Allergy Active Reason For Referral No Information Medications Medication SIG (Take, Route, Frequency, Duration) Notes Start Date End Date Status Albuterol Sulfate HFA 108 (90 Base) MCG/ACT 1 puff as needed Inhalation every 4 hrs; Duration: 10 days 12/23/2023 Active Pantoprazole Sodium 40 MG 1 tablet Orall y Once a day; Duration: 30 day(s) Active PROzac 20 MG 1 capsule Orally Onc e a day Dr Huddleston Active traZODone HCl 50 MG 1 tablet at bedtime Orally Once a day Dr. Huddleston Active Social History Tobacco Use: Social History Observation Description Date Details (start date - stop date) Never Smoker NA - NA Sex Assigned At : Social History Observation Description Sex Assigned At Female Tobacco Screen: Question Answer Notes Are you a: never smoker Sexual Hx: Question Answer Notes Had sex in the last 12 months (vaginal, oral, or anal)? Yes with Men only Use protection? No Prevention Strategies discussed: Condoms Have you ever had an STD? No Alcohol Screening: Question Answer Notes Did you have a drink containing alcohol in the p ast year? No Points 0 Interpretation Negative Depression Screening (PHQ-9): Question Answer Notes Little interest or pleasure in doing things Not at all Feeling down, depressed, or hopeless Not at all Trouble falling or staying asleep, or sleeping t oo much Not at all Feeling tired or having little energy Not at all Poor appetite or overeating Not at all Feeling bad about yourself-o r that you are a failure or have let yourself or your family down Not at all Trouble concentrating on thi ngs, such as reading the newspaper or watching television Not at all Moving or speaking so slowly that other people could have noticed. Or the opposite being so fidgety or restless that you have been moving around a lot more than usual Not at all Thoughts that you would be b kadi off , or of hurting yourself in some way Not at all Total Score 0 Section Notes: 11/28/15: Denies tobacco, ETO H and IDU 11/28/15: Denies tobacco, ETO H and IDU 11/28/15: Denies tobacco, ETO H and IDU 11/28/15: Denies tobacco, ETO H and IDU 11/28/15: Denies tobacco, ETO H and IDU 11/28/15: Denies tobacco, ETO H and IDU 11/28/15: Denies tobacco, ETO H and IDU 11/28/15: Denies tobacco, ETO H and IDU 11/28/15: Denies tobacco, ETO H and IDU 11/28/15: Denies tobacco, ETO H and IDU 11/28/15: Denies tobacco, ETO H and IDU 11/28/15: Denies tobacco, ETO H and IDU 11/28/15: Denies tobacco, ETO H and IDU Problems Problem Type SNOMED Code ICD Code Onset Dates Problem Status W/U Status Risk Notes Problem Dysuria (04456140) Dysuria (R30.0) Active confi rmed Problem Hyperlipidemia (51456139) Hyperlipidemia (E78.5) Active confirmed Problem Anxiety (06795701) Anxiety (F41.9) Active confi rmed Problem Gastroesophageal reflux disease (359143529) GERD (gastroesophageal reflux disease) (K21.9) Active confirmed Problem Restless legs syndrome (52648022) Restless leg syndrome (G25.81) Active confirmed Problem Gastritis (8995948) Gastritis (K29.70) Active c onfirmed Problem Irritable bowel syndrome (08748399) IBS (irritable bowel syndrome) (K58.9) Active confirmed Problem Hypercholesterolemia (00210044) Hypercholesterolemia (E78.00) Active confirmed Problem Anxiety depression (452130162) Anxiety with depression (F41.8) Active confirmed Problem Steatosis of liver (500986521) Hepatic steatosis (K76.0) Active confirmed Problem Amenorrhea (84355434) Lack of me nses (N91.2) Active confirmed Encounters Encounter Location Date Provider Diagnosis [facility] [address] [place] [address] 04/17/[address] [facility] [address] [place] [address] 04/17/2024 Ayah Willingham Plan Of Treatment No Information Insurance Providers Payer Name Payer Address Payer Phone Subscriber Number Group Number Insured Name Patient Relationship to Insured Coverage Start Date Coverage End Date [facility] [address] [place] [address] [id number] MARIBEL RIVERA Self - patient is the insured 4 [facility] [address] [place] [address] [id number] MARIBEL RIVERA Self - patient is the insured 9 Medical (General) History Medical History History ICD Code Anxiety GERD Constipation Chronic Fatigue IBS Hyperlipidemia Restless Leg Syndrome Depression Uterine Fibroids Hospitalization History Reason Date(Month/Year) Chest Pain 05/23 [facility]
--- OUTSIDE RECORDS SUMMARY | 2025-04-10 07:22 | XMS_ITS | Clinical Summary ---
Author Organization [facility] Address [address] [place] [address] Care Team Providers Care Sweet Pickle Maker Name Role Phone Unavailable Primary Care Provider Unavailabl e Allergies Active Allergy Reactions Criticality Noted Date Comments Latex Rash 10/13/2012 Penicillins Unknown 10/12/2012 Medications CITALOPRAM HYDROBROMIDE (CITALOPRAM ORAL) Take by mouth. Active Active Problems No known active problems Family History Medical History Relation Comments healthy Father healthy Mother Cervical Cancer Sister 2 2014 Relation Status Comments Brother Alive Daughter Alive healthy Father Alive Mother Alive Sister 1 Alive Sister 2 Alive Social History Tobacco Use Types Packs/Day Years [...] Sign Reading Time Taken Comments Blood Pressure 112/70 10/22/2016 2:59 PM EST Pulse 60 10/13/2012 8:00 PM EST Temperature 36.4 C (97.5 F) 10/13/2012 7:15 PM EST Respiratory Rate 16 10/13/2012 8:00 PM EST Oxygen Saturation 97% 10/13/2012 8:00 PM EST Inhaled Oxygen Concentration - - Weight 52.6 kg (116 lb) 10/22/2016 2:59 PM EST Height 162.6 cm (5' 4 ) 10/22/2016 2:59 PM EST Body Mass Index 19.91 10/22/2016 2:59 PM EST Plan of Treatment Health Maintenance Due Date Last Done Comments Anxiety Screening 1988 Depression Screening 1988 HIV Screening 1988 Hepatitis C Screening 1988 DTaP,Tdap,Td Vaccine (1 - Tdap) 1989 Hepatitis B Vaccine (1 of 3 - 19+ 3-dose series) 1989 CT Colonography 2015 Cologuard (FIT-DNA) 2015 Colonoscopy 2015 Colorectal Cancer Screening 2015 Fecal Occult Blood 2015 Lipid Screening 2015 Sigmoidoscopy 2015 Diabetes Screening 10/12/2015 10/12/2012, 10/12/2012 Mammogram Screening 10/03/2016 10/03/2015 Cervical Cancer Screening 09/26/2018 09/26/2015, Pneumococcal Vaccine: 50+ (1 of 1 - PCV) 2020 Shingrix Vaccine (1 of 2) 2020 Influenza Vaccine (#1) 2025 Procedures Procedure Name Priority Date/Time Associated Diagnosis Comments MAMMOGRAM DIGITAL SCREENING BILAT (AG,EU,HL,MM,SP) 10/03/2015 2:08 PM EST PAP FLUID CERVICAL SCREENING Routine 09/26/2015 2:33 PM EST Normal pelvic exam BASIC METABOLIC PANEL Routine 10/12/2012 11:50 AM EST from Last 3 Months or Most Recently Relevant to Health Maintenance Results * MAMMOGRAM DIGITAL SCREENING BILAT (AG,EU,HL,MM,SP) (10/03/2015 2:08 PM EST) Anatomical Region Laterality Modality Other 10/03/2015 2:08 PM EST Impressions 10/04/2015 4:20 PM EST IMPRESSION: NEGATIVE There is no mammographic evidence of malignancy.A 1 year screening mammogram is recommended. Melvi obando/caleb:10/04/2015 16:19:35 [place] Tour Guide: Yoselyn PARHAM(Danny)(M), [facility] letter sent: Normal over 40 Mammogram BI-RADS: 1 Negative Art Education Professor: YESSY Transcribe Date/Time: Oct 04 2015 4:19P Dictated by : MELVI SUAREZ MD This examination was interpreted and the report reviewed and electronically signed by: MELVI SUAREZ MD On Oct 04 2015 4:19PM Principal Flight Dispatcher: MELVI SUAREZ Narrative 10/04/2015 4:20 PM EST * * *Final Report* * * DATE OF EXAM: Oct 03 2015 2:08PM [id number] - MAMMOGRAM DIGITAL SCREENING BRANNON / PROCEDURE REASON: screening * * * * Physician Interpretation * * * * #[id number] - MAMMOGRAM DIGITAL SCREENING BRANNON BILATERAL DIGITAL SCREENING MAMMOGRAM WITH CAD: 10/03/2015 HISTORY: Screening/ Screening Mammogram - patient reports NO breast symptoms / baseline mammogram. RESULT: TECHNIQUE: The study was acquired using full field digital technology and interpreted from soft copy. Current study was also evaluated with a Computer Aided Detection (CAD). No prior exams were available for comparison. The tissue of both breasts is extremely dense, which lowers the sensitivity of mammography. No significant masses, calcifications, or other findings are seen in either breast. us Adrienne Love JAVA GROOVY DEVELOPER.[facility] Final Result * (ABNORMAL) PAP FLUID CERVICAL SCREENING (09/26/2015 2:33 PM EST) Salary And Wage Administrator ADDITIONAL PROCEDURES PRESENT ---Abnormal Pap Test - Epithelial Cell Abnormality--- Specimen originated from [facility] Specimen #: [id number] Submitting Physician: Adrienne Love CNP SPECIMEN SUBMITTED A: CERVICAL,SCREENIN G, FLUID FINAL DIAGNOSIS A. CERVICAL,SCREENIN G, FLUID Satisfactory for interpretation. Epithelial cell abnormality. Atypical squamous cells of undetermined significance (ASC-US). Predominance of coccobacilli consistent with shift in vaginal basil. This specimen has been analyzed by the ThinPrep Imaging System, an automated imaging and review system, which assists the laboratory in evaluating cells on ThinPrep Pap tests. Following automated imaging, selected lemons from every slide are reviewed by a videogame designer. Lewis Ruiz M.D. (Electronic Signature) ADDITIONAL PROCEDURE(S) HUMAN PAPILLOMA VIRUS Date Ordered: 10/03/2015 Date Reported: 10/07/2015 Procedure Results and Interpretation Negative for HPV High or Intermediate risk types: 16, 18, 31, 33, 35, 39, 45, 51, 52, 58, 59, 68. Low risk HPV types are not detected by this assay. Testing performed by [facility], [address] [place] [address]. 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 The Pap Smear is a screening test for cervical cancer. False negative results occur with all screening tests, emphasizing the need for rescreening at recommended intervals, and clinical correlation.(A) [facility] Specimen from uterine cervix (specimen) CERVICAL / Unknown 09/26/2015 2:33 PM EST 09/27/2015 7:44 AM EST Adrienne Love APRN.INFORMATICS PHARMACIST CYTOLOGY Edited Misty hassan - Final [facility] [id number] [place] [id number] * (ABNORMAL) BASIC METABOLIC PNL (10/12/2012 11:50 AM EST) Glucose 126(H) 65 - 100 mg/dL [facility] BUN 13 8 - 25 mg/dL [facility] Creatinine 0.46(L) 0.70 - 1.40 mg/dL [facility] Sodium 136 132 - 148 mmol/L [facility] Potassium 3.7 3.5 - 5.0 mmol/L [facility] Chloride 102 98 - 110 mmol/L [facility] CO2 22(L) 23 - 32 mmol/L [facility] Anion Gap 12 0 - 15 mmol/L [facility] Calcium 9.4 8.5 - 10.5 mg/dL [facility] 10/12/2012 11:5 0 AM EST 10/12/2012 12:03 PM EST Reid Ballard MD LABORATORY Final Result Performing Organization Address [facility] Co de Phone Number [facility] [address] [place] [address] from Last 3 Months or Most Recently Relevant to Health Maintenance Insurance [place] [employer] [place]
[2025-04-10 07:52] LABS: Hematocrit 40.0 % (36.0-48.0); Hemoglobin 13.1 g/dL (12.0-16.0); Immature Granulocytes Abs Auto 0.03 10^3/uL (0.00-0.03); Immature Granulocytes Pct Auto 0.4 % (0.0-0.5); Lymphocytes Absolute Auto 1.9 10^3/uL (1.2-3.8); Mean Corpuscular HGB Conc 32.8 g/dL (29.9-35.2); Mean Corpuscular Hemoglobin 28.9 pg (26.7-34.0); Mean Corpuscular Volume 88.3 fL (81.0-99.0); Platelet Count 270 10^3/uL (150-450); Red Blood Count 4.53 10^6/uL (4.20-5.40); White Blood Count 7.5 10^3/uL (4.0-11.0)
[2025-04-10 09:09] LABS: Alanine Aminotransferase 29 U/L (14-59); Albumin Globulin Ratio 1.0; Albumin Level 3.8 g/dL (3.4-5.0); Alkaline Phosphatase 47 U/L (46-116); Anion Gap 14.9; Aspartate Amino Transferase 18 U/L (15-37); Blood Urea Nitrogen 15.0 mg/dL (7.0-18.0); Calcium 9.2 mg/dL (8.5-10.1); Carbon Dioxide 29.1 mmol/L (21.0-32.0); Chloride 104 mmol/L (98-107); Estimated GFR (African America >60 (>=60 mL/min/1.73m^2); Estimated GFR (Non-African Ame >60 (>=60 mL/min/1.73m^2); Free T3 3.38 pg/mL (2.18-3.98); Globulin 3.9 g/dL; Glucose 107 mg/dL (74-106); NT Pro B Type Natriuretic Pept 40.0 pg/mL (<=900.0); Potassium 4.0 mmol/L (3.5-5.1); Sodium 144 mmol/L (136-145); Thyroid Stimulating Hormone 2.969 uIU/mL (0.358-3.740); Total Protein 7.7 g/dL (6.4-8.2)
== END 2025-04-10 07:19 | disposition home or self-care (01) ==
PROVIDERS: PCP Family Medicine; Visit Provider Family Medicine
DX: J20.9 Acute bronchitis, unspecified (principal); R53.83 Other fatigue; I11.0 Hypertensive heart disease with heart failure; I50.30 Unspecified diastolic (congestive) heart failure
CPT/HCPCS: 36415; 80053; 83880; 84436; 84443; 84481; 84484; 85025

== ENCOUNTER 2025-04-29 08:00 | Outpatient (OUT) | payer MEDICAID, SELFPAY ==
--- OUTSIDE RECORDS SUMMARY | 2012-11-10 12:00 | XMS_ITS | Encounter Summary ---
Author Organization [facility] Address [address] [place] [address] Care Team Providers Care Sand Technologist Name Role Phone Pcp, No Primary Care Provider Unavailabl e Source Comments In the event this information is protected by the Federal Confidentiality of Alcohol and Drug AbusePatient Records regulations: The Federal rules restrict any use of the information to criminally investigate or prosecute any alcohol or drug abuse patient.[facility] Encounter Details Date Type Department Care Team (Late st Contact Info) Description 11/10/2012 11:00 AM EST Hospital Encounter Gynecology [address] [id number] Macarena Rai MD [address] [place] [address] Social History Tobacco Use Types Packs/Day Years Used Date Smoking Tobacco: Never Smokeless Tobacco: Never Alcohol Use Standard Drinks/Week Comments No 0 (1 standard drink = 0.6 oz pur e alcohol) Comments No Sex and Gender Information Value Date Recorded Sex Assigned at Not on file Legal Sex Female 10:07 AM EST Gender Identity Not on file Sexual Orientation Not on file documented as of this encounter Plan of Treatment Not on file documented as of this encounter Visit Diagnoses Not on filedocumented in this encounter Care Teams Sand Technologist Relationship Specialty Start Date End Date Pcp, No PCP - General 10/12/12 05/09/13 documented as of this encounter
--- OUTSIDE RECORDS SUMMARY | 2023-05-02 05:00 | XMS_ITS | Continuity of Care Document ---
Author Organization [facility] Address [address] [place] [address] Phone Care Team Providers Care Software Installer Name Role Phone Tiffany RODGERS, Quinn Unavailable [...] Diagnoses Date Provider Providers Copied on Encounter [facility], [address] [place] [address], [id number], tel:[phone] Dental Clinic DN (chief complaint) Encounter for screening for dental disorders Tiffany Teresaal. [address] [place] [address], [id number], [place]. tel:[phone] [facility], [address] [place] [address], [id number], tel:[phone] Dental Clinic Dental exam Ajay RODGERS Yvette. [address] [place], [place], [id number], [place]. tel:[phone] [facility], [address] [place], [place], [id number], [place] tel:[phone] Dental Clinic Dental exam Ajay DMD Yvette. [address] [place], [place], [id number], [place]. tel:[phone] Family History Family Member Type Diagnosis Age At Onset Mother Problem (finding) Alive and well Father Problem (finding) Alive and well Payers Payer name Insurance type Covered alliance party ID Jack prieto(s) [employer] [place] [id number] Social History Type Description Quantity Date Captured [...] Of Treatment Date Type Action Status Goal Lipid panel. Due on 023 due Goal Influenza vaccine. Due on Au due Goal Mammogram. Due on due Goal Tdap. Due on due Goal Zoster vaccine (1st). Due on due Goal FOBT. Due on due Goal PRAPARE ASSESSMENT. Due on A due Goal Depression screening. Due on due Goal Colonoscopy. Due on 023 due Goal Tdap Vaccine. Due on 2022 due History Of Present Illness Encounter Date Complaint History Of Prese nt Illness DN Functional Status Date Functional Assessmen t No Information Instructions Date Instruction Additional Infor mation No Information Assessments Type Assessment Date No Information Patient Care Teams Name Effective Dates (start - stop) Status Members No Information
--- OUTSIDE RECORDS SUMMARY | 2023-12-30 10:30 | XMS_ITS ---
Author Organization [facility] Address [address] [facility] [place] [address] Care Team Providers Care Make Up Operator Name Role Phone Ayah Willingham Primary Care Provider REASON FOR VISIT DISCUSS BLOOD WORK Social History Sex Assigned At : Social History Observation Description Sex Assigned At Female Encounters Encounter Location Date Provider Diagnosis [address] [place] [address] 12/30/2023 Ayah Willingham Plan Of Treatment No Information Progress Notes * MARIBEL RIVERA MINDOB:1970 (54 yo F)Acc No.[id number]:12/30/2023 Progress Notes Patient: MARIBEL WILKINSON Provider: Rakan Willingham CNP :1970 A ge:53 Y S ex:Female Date:12/30/2023 Address:[address] [place], [place] [address] Subjective: * Chief Complaints: * 1 . DISCUSS BLOOD WORK. * Medical History: Objective: * Vitals: Assessment: Plan: * Treatment: * Images: * Electronic signature of Jennifer Wlilingham CNP on 04/29/2025 at 08:04 AM EDT Sign off status: Pending * Provider: Rakan Wlilingham CNP Date: 0 12/30/2023 Generated for Printi ng/Fareginaldog/eTransmitting on: 0 04/29/2025 08:04 AM EDT
--- OUTSIDE RECORDS SUMMARY | 2024-01-07 06:30 | XMS_ITS ---
Author Organization [facility] Address [address] [facility] [place] [address] Care Team Providers Care Basket Turner Name Role Phone Ayah Willingham Primary Care Provider REASON FOR VISIT well woman, go over labs Social History Sex Assigned At : Social History Observation Description Sex Assigned At Female Encounters Encounter Location Date Provider Diagnosis [facility] [address] [facility] [place] [address] 01/07/2024 Ayah Willingham Plan Of Treatment No Information Progress Notes * MARIBEL RIVERA MINDOB:1970 (54 yo F)Acc No.[id number]:01/07/2024 Progress Notes Patient: MARIBEL WILKINSON Provider: Rakan Willingham CNP :1970 A ge:53 Y S ex:Female Date:01/07/2024 Address:[address] [place], [place] [id number] Subjective: * Chief Complaints: * 1 . Well woman, go over labs. * Medical History: Objective: * Vitals: Assessment: Plan: * Treatment: Care Plan: * Problems: * Images: * Electronic signature of Jennifer Willingham CNP on 04/29/2025 at 08:07 AM EDT Sign off status: Pending * Provider: Rakan Willingham CNP Date: 0 01/07/2024 Generated for Shania keyes/Jailene/eTransmitting on: 0 04/29/2025 08:07 AM EDT
--- OUTSIDE RECORDS SUMMARY | 2025-04-08 09:00 | XMS_ITS ---
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 , NT Pro B Type Natriuretic Pept 40.0 <=900.0 pg /mL Performing Lab: see note ML - [facility] LB CBC AUTO DIFF Reviewed date:04/11/2025 07:46:20 PM Interpretation: Performing Lab: Notes/Report: [facility] , White Blood Count 7.5 4.0-11.0 10 3/uL Red Blood Count 4.53 4.20-5.40 10 6/uL Hemoglobin 13.1 12.0-16.0 g/dL Hematocrit 40.0 36.0-48.0 % Mean Corpuscular Volume 88.3 81.0-99.0 fL Mean Corpuscular Hemoglobin 28.9 26.7-34.0 pg Mean Corpuscular HGB Conc 32.8 29.9-35.2 g/dL Red Cell Distribution Width 13.7 11.0-15.0 % Platelet Count 270 150-450 10 3/uL Mean Platelet Volume 9.5 9.5-13.5 fL Neutrophils Percent Auto 66.6 43.0-75.0 % Lymphocytes Percent Auto 25.8 20.5-60.0 % Monocytes Percent Auto 6.4 1.7-12.0 % Eosinophils Percent Auto 0.5 0.9-7.0 % Basophils Percent Auto 0.3 0.2-2.0 % Immature Granulocytes Pct Auto 0.4 0.0-0.5 % Neutrophils Absolute Auto 5.0 1.4-6.5 10 3/uL Lymphocytes Absolute Auto 1.9 1.2-3.8 10 3/uL Monocytes Absolute Auto 0.5 0.3-0.8 10 3/uL Eosinophils Absolute Auto 0.0 0.0-0.7 10 3/uL Basophils Absolute Auto 0.0 0.0-0.1 10 3/uL Immature Granulocytes Abs Auto 0.03 0.00-0.03 10 3/uL Performing Lab: see note - [facility] LB PROF 14(COMP METB) Reviewed date:04/11/2025 07:46:20 PM Interpretation: Performing Lab: Notes/Report: [facility] , Sodium 144 136-145 mmol/L Potassium 4.0 3.5-5.1 mmol/L Chloride 104 98-107 mmol/L Carbon Dioxide 29.1 21.0-32.0 mmol/L Anion Gap 14.9 Glucose 107 74-106 mg/dL Blood Urea Nitrogen 15.0 7.0-18.0 mg/dL Creatinine 0.61 0.55-1.02 mg/dL Estimated GFR ( Migdalia >60 >=60 mL/mi n/1.73m 2 Estimated GFR (Non- Nicci >60 >=60 mL/mi n/1.73m 2 BUN Creatinine Ratio 24.6 Calcium 9.2 8.5-10.1 mg/dL Bilirubin Total 0.5 0.2-1.0 mg/dL Aspartate Amino Transferase 18 15-37 U/L Alanine Aminotransferase 29 14-59 U/L Alkaline Phosphatase 47 46-116 U/L Total Protein 7.7 6.4-8.2 g/dL Albumin Level 3.8 3.4-5.0 g/dL Globulin 3.9 Albumin Globulin Ratio 1.0 Performing Lab: see note ML - [facility] LB REASON FOR VISIT productive cough- yellow, pain [...] N/A Encounters Encounter Location Date Provider Diagnosis [facility] [address] [place] [address] 04/08/2025 Paulino Hoy Acute bronchitis J20 .9 and Chest pain [...] Cardiolite 04/08/20 25 High Sensitivity Troponin 04/08/2025 THYROID PANEL (T4/TSH/FREE T3) 5 Next Appt Details Provider Name:Paulino Washburn, 01:45:00 PM, [address] [place], [address], Progress Notes * Alejandra CRISTOBALinDOB:1970 (54 yo F)Acc No.[id number]:04/08/2025 Progress Note Patient: Stefany WILKINSON Provider: Priyanka Washburn ([facility])MD :1970 A ge:54 Y S ex:Female Date:04/08/2025 Address:[address] [place], [place] [id number] Check In:01:04 PM ESTCheck O ut:02:06 PM EST Subjective: * Chief Complaints: * P roductive cough- yellow, pain in chest when breath, chest pressure- not sleeping wellTook Ibuprofen this AM * HPI: G eneral: cough with chest [...] enies. S wollen joints d enies. * Active Problem List R05.3 Chronic cough Modified On:11/10/2024/U Status:confirmed R06.00 Dyspnea Modified On:11/10/2024/U Status:confirmed F32.9 Depression Modified On:11/10/2024/U Status:confirmed * Medical History: * Surgical History: D enies Past Surgical History * Hospitalization/Major Diagno stic Procedure: D enies Past Hospitalization * Family History: M other: alive, bipolar, depression. * Social History: T obacco Use: T obacco Control (Standard) T obacco use: N onsmoker * Medications: T akingARIPiprazole 30 MG Tablet Oral Breo Ellipta(Fluticasone Furoate-Vilanterol) 100-25 MCG/ACT Aerosol Powder Breath Activated 1 puff Inhalation Once a day FLUoxetine HCl 20 MG Capsule Oral Protonix(Pantoprazole Sodium) 40 MG Tablet Delayed Release 1 tablet Orally Once a day traZODone HCl 50 MG Tablet TAKE 1 TABLET BY MOUTH AT BEDTIME Oral Taking ARIPiprazole 30 MG Tablet Oral Taking Breo Ellipta(Fluticasone Furoate-Vilanterol) 100-25 MCG/ACT Aerosol Powder Breath Activated 1 puff Inhalation Once a day Taking FLUoxetine HCl 20 MG Capsule Oral Taking Protonix(Pantoprazole Sodium) 40 MG Tablet Delayed Release 1 tablet Orally Once a day Taking traZODone HCl 50 MG Tablet TAKE 1 TABLET BY MOUTH AT BEDTIME Oral DiscontinuedpredniSONE 10 MG Tablet 5 tabs per day for 3 days, 4 tabs per day for 3 ays, 3 tabs perday for 3 days, 2 tabs per day for 3 days, 1 tab a day for 3 days, 1/2 tab a day for 4 days Orally Once a day Medication List reviewed and reconciled with the patientDiscontinued predniSONE 10 MG Tablet 5 tabs per day for 3 days, 4 tabs per day for 3 ays, 3 tabs perday for 3 days, 2 tabs per day for 3 days, 1 tab a day for 3 days, 1/2 tab a day for 4 days Orally Once a day Medication List reviewed and reconciled with the patient * Allergies: N .K.D.A.no[Allergies Verified] Objective: * Vitals: W t:130.2lbs, Ht: 62 [...] 2/3 lead for inf wall ischemia. * Labs: * L ab: PROF 14(COMP METB) (Collection Date & Time - 04/10/2025 07:38 AM) L ab: BNP (Collection Date & Time - 04/10/2025 07:38 AM) L ab: CBC AUTO DIFF (Collection Date & Time - 04/10/2025 07:38 AM) * Procedure Codes: * * Sign off status: Completed Visit Status: C HK (Check Out) true * Provider: Priyanka Washburn ([facility])MD Date: 0 04/08/2025 Generated for Printi ng/Faxing/eTransmitting on: 0 04/29/2025 08:05 AM EDT History and Physical Notes * [...]
--- OUTSIDE RECORDS SUMMARY | 2025-04-11 15:45 | XMS_ITS ---
Author Organization [facility] [place] Address [address] [place] [address] Care Team Providers Care Diesel Retrofit Designer Name Role Phone Paulino Washburn Primary Care Provider REASON FOR VISIT LABS Encounters Encounter Location Date Provider Diagnosis [facility] [address] [place] [address] 04/11/2025 Paulino Wu Plan Of Treatment Next Appt Details Provider Name:Paulino Washburn, 01:45:00 PM, [address] [place], [address], Progress Notes * Alejandra CRISTOBALinDOB:1970 (54 yo F)Acc No.[id number]:04/11/2025 Patient: Anya CHRISTY Stefany :1970 A ge:54 Y S ex:Female Address:[address] [place] [address], [address] * true * Date: Generated for Lollyi wali/Jailene/eTransmitting on: 04/29/2025 08:04 AM EDT
--- NOTE | 2025-04-29 07:45 | NM_ITS ---
Patient Name: BRADFORD RIVERA MR#: [id number] : 1970 Exam Date: 04/29/2025 Ordering Doctor: DR MATEO OROZCO . RADIOLOGY REPORT PROCEDURE: NM ELYSIA PERF SPECT REST STR COMPARISON: None. INDICATIONS: CHEST PAIN, SHORTNESS OF BREATH TECHNIQUE: Exam Description: Rest/Stress one day protocol gated SPECT Rest Imagin.9 mCi Tc-99m Cardiolite IV on 04/29/2025 Stress Imaging 30.3 mCi Tc-99m Cardiolite IV on 04/29/2025 Exercise Protocol: 0.4 mg Lexiscan given IV Heart Rate (bpm): Rest: 76 Max: 107 PMHR: 64 Blood Pressure: Rest: 132/82 Max: 132/82 Symptoms: Rest and peak stress ECG findings were pending, and the exercise portion of the study was pending per attending physician [facility]. For more details, please see separate cardiac stress test report. FINDINGS: QUALITY OF STUDY: Good PERFUSION DEFECT: LOCATION: N/A SIZE: N/A SEVERITY: N/A TYPE: N/A WALL MOTION: Normal wall motion LV SIZE: 48 mL. TID / TCD: 0.8 LVEF: Calculated EF 80%. SUMMARY: Myocardial perfusion imaging study is normal CONCLUSION: 1. Myocardial perfusion is normal 2. Global left ventricular systolic function is hyperdynamic; EF 60% 3. No significant transient ischemic dilatation Dictated by: America Hollins M.D. on 04/29/2025 at 16:30 Approved by: America Hollins M.D. on 04/29/2025 at 16:31
--- OUTSIDE RECORDS SUMMARY | 2025-04-29 08:05 | XMS_ITS | Patient Health Record ---
Author Organization [facility] [place] Address [address] [place] [address] Care Team Providers Care Enthone Solder Stripper Name Role Phone Paulino Orozco Primary Care Provider Allergies No Known Allergies Results Component Value Reference Range Notes BNP Reviewed date:04/11/2025 07:46:20 PM Interpretation: Performing Lab: Notes/Report: [facility] , NT Pro B Type Natriuretic Pept 40.0 <=900.0 pg/mL Performing Lab: see note ML - [facility] LB CBC AUTO DIFF Reviewed date:04/11/2025 07:46:20 PM Interpretation: Performing Lab: Notes/Report: [facility] , White Blood Count 7.5 [...] 10 3/uL Performing Lab: see note - [facility] LB PROF 14(COMP METB) Reviewed date:04/11/2025 07:46:20 PM Interpretation: Performing Lab: Notes/Report: [facility] , Sodium 144 136-145 mmol/L Potassium 4.0 3.5-5.1 mmol/L Chloride 104 98-107 mmol/L Carbon Dioxide 29.1 21.0-32.0 mmol/L Anion Gap 14.9 Glucose 107 74-106 mg/dL Blood Urea Nitrogen 15.0 7.0-18.0 mg/dL Creatinine 0.61 0.55-1.02 mg/dL Estimated GFR ( Migdalia >60 >=60 mL/min/1.73m 2 Estimated GFR (Non- Nicci >60 >=60 mL/min/1.73m 2 BUN Creatinine Ratio 24.6 Calcium 9.2 8.5-10.1 mg/dL Bilirubin Total 0.5 0.2-1.0 mg/dL Aspartate Amino Transferase 18 15-37 U/L Alanine Aminotransferase 29 14-59 U/L Alkaline Phosphatase 47 46-116 U/L Total Protein 7.7 6.4-8.2 g/dL Albumin Level 3.8 3.4-5.0 g/dL Globulin 3.9 Albumin Globulin Ratio 1.0 Performing Lab: see note - [facility] LB CBC AUTO DIFF Reviewed date:11/11/2024 09:13:39 PM Interpretation: Performing Lab: Notes/Report: [facility] , White Blood Count 6.7 [...] 3/uL Performing Lab: see note ML - [facility] FREE T3 Reviewed date:11/11/2024 09:13:39 PM Interpretation: Performing Lab: Notes/Report: [facility] , Free T3 3.02 2.18-3.98 pg/mL Performing Lab: see note ML - [facility] LB GLYCOHEMOGLOBIN A1C Reviewed date:11/11/2024 09:13:39 PM Interpretation: Performing Lab: Notes/Report: [facility] , Glycohemoglobin A1C 5.9 4.5-6.2 % > 7.0 ACTION SUGGESTED ADA THERAPEUTIC TARGET < 7.0 ADA RECOMMENDED LIMIT 4.0 - 6.0 Estimated Average Glucose 123 Performing Lab: see note ML - [facility] LB IRON Reviewed date:11/11/2024 09:13:39 PM Interpretation: Performing Lab: Notes/Report: [facility] , Iron 57.0 50.0-170.0 ug/dL Performing Lab: see note ML - [facility] LB LIPID PROFILE Reviewed date:11/11/2024 09:13:39 PM Interpretation: Performing Lab: Notes/Report: [facility] , Triglycerides 121 <=150 mg/dL Cholesterol 195 <=200 mg/dL HDL Cholesterol 51 40-60 mg/dL > or =60 mg/dl - LOW CARDIOVASCULAR RISK <40 mg/dl - HIGH CARDIOVASCULAR RISK LDL Cholesterol Calculated 119.8 160-189 mg/dl HIGH <100 mg/dl OPTIMAL 130-159 mg/dl BORDERLINE HIGH >190 mg/dl VERY HIGH 100-129 mg/dl NEAR OR ABOVE OPTIMAL VLDL CHOLESTEROL 24.2 Chol HDL Ratio 3.8 4.4 - 7.1 AVERAGE RISK 3.3 - 4.4 LOW RISK 7.1 - 11.0 MODERATE RISK >11.0 HIGH RISK Performing Lab: see note ML - [facility] LB PROF 14(COMP METB) Reviewed date:11/11/2024 09:13:39 PM Interpretation: Performing Lab: Notes/Report: [facility] , Sodium 142 136-145 mmol/L [...] 1.1 Performing Lab: see note ML - [facility] LB T4 Reviewed date:11/11/2024 09:13:39 PM Interpretation: Performing Lab: Notes/Report: [facility] , T4 Thyroxine 7.90 4.80-13.90 ug/dL Performing Lab: see note ML - [facility] LB TSH Reviewed date:11/11/2024 09:13:39 PM Interpretation: Performing Lab: Notes/Report: [facility] , Thyroid Stimulating Hormone 2.782 0.358-3.740 uIU/mL Performing Lab: see note ML - [facility] LB QuantiFERON-TB Gold Plus Reviewed date:11/15/2024 09:53:35 AM Interpretation: Performing Lab: Notes/Report: [facility] , QuantiFERON Incubation . Reference Range: . Incubation performed. QuantiFERON-TB Gold Plus Negative Negative individuals should be considered for additional testing IU/mL. [address] [place] [phone] Chemiluminescence immunoassay methodology No response to M tuberculosis antigens detected. (ATS/IDSA/CDC Clinical Practice Guidelines, 2017). The System Support Analyst: Enoc Marley PhD, Phone: [phone] Infection with M tuberculosis is unlikely, but high risk Performed at: [facility] reference range is an Antigen minus Nil result of <0.35 QuantiFERON Criteria Comment . radiography, and other medical and diagnostic evaluations. value. The Mitogen tube serves as a control for the test. QuantiFERON-TB Gold Plus is a qualitative indirect test for M tuberculosis infection (including disease) and is The QuantiFERON-TB Gold Plus result is determined by intended for use in conjunction with risk assessment, subtracting the Nil value from either TB antigen (Ag) QuantiFERON TB1 Ag Value 0.17 . IU/mL QuantiFERON TB2 Ag Value 0.15 . IU/mL QuantiFERON Nil Value 0.15 . IU/mL QuantiFERON Mitogen Value 4.67 . IU/mL Performing Lab: see note - [facility] LB Troponin I High Sensitivity Reviewed date:04/11/2025 07:46:20 PM Interpretation: Performing Lab: Notes/Report: [facility] , Troponin I High Sensitivity 4.1 4.0-51.3 pg/mL WITH OTHER DIAGNOSTIC AND CLINICAL INFORMATION. CUT-OFF POINTS HAVE BEEN ESTABLISHED BASED ON THE FOURTH USED IN ISOLATION BUT SHOULD BE INTERPRETED IN CONJUNCTION NOTE: HIGH-SENSITIVITY TROPONIN ASSAY IS NOT INTENDED TO BE UNIVERSAL DEFINITION OF MYOCARDIAL INFARCTION. THE UPPER 99TH PERCENTILE = 51.4 PG/ML HAS BEEN CONFIRMED THE DECISION THRESHOLD FOR [place] REFERENCE LIMIT (URL) OF TROPONIN, DEFINED THE 99TH PERCENTILE OF cTnI DISTRIBUTION IN A REFERENCE POPULATION, DIAGNOSIS. Performing Lab: see note ML - [facility] LB TSH Reviewed date:04/11/2025 07:46:20 PM Interpretation: Performing Lab: Notes/Report: [facility] , Thyroid Stimulating Hormone 2.969 0.358-3.740 uIU/mL Performing Lab: see note ML - [facility] LB T4 Reviewed date:04/11/2025 07:46:20 PM Interpretation: Performing Lab: Notes/Report: [facility] , T4 Thyroxine 10.40 4.80-13.90 ug/dL Performing Lab: see note ML - [facility] FREE T3 Reviewed date:04/11/2025 07:46:20 PM Interpretation: Performing Lab: Notes/Report: [facility] , Free T3 3.38 2.18-3.98 pg/mL Performing Lab: see note ML - [facility] VITAMIN D 25 [place] Reviewed date:11/11/2024 09:13:39 PM Interpretation: Performing Lab: Notes/Report: [facility] , Vitamin D 25.8 20-<30 ng/mL Vit D insufficient 30-100 ng/mL Vit D sufficient >100 ng/mL Potential Toxicity <20 ng/mL Vit D deficient Performing Lab: see note ML - [facility] LB XR chest 2V Reviewed date:11/12/2024 08:53:24 PM Interpretation: Performing Lab: Notes/Report: Source Facility: [facility]-[address] [place] [address] [address] XRay Report Signed Patient: STEFANY CRISTOBAL MR#: [id number] : 1970 Acct:[id number] Age/Sex: 54 / F ADM Date: 11/11/24 Loc: LAB Attending Dr: Mateo Orozco M.D. Ordering Physician: Mateo Orozco M.D. Date of Service: 11/11/24 Procedure(s): XR chest 2V Accession Number(s): [id number] cc: Mateo Orozco M.D. [address] [address] Patient Name: STEFANY CRISTOBAL MRN: [id number] date: 1970 Sex: F Assigned Patient Location: LAB Current Patient Location: LAB Accession/Order Number: [id number] Exam Date: 11/11/2024 23:11 Report Date: 11/11/2024 23:12 At the request of: MATEO OROZCO MD Procedure: XR chest 2V Chest 2 views CLINICAL HISTORY: Chronic Cough, Dyspnea , Epigastric Pain COMPARISON: None FINDINGS: Heart normal size. Lungs are clear. No free air. XR/XR chest 2V IMPRESSION: NO ACUTE CARDIOPULMONARY ABNORMALITY. Impression dictated by: Missy Connor Jr.ORaymundo11/11/2024 11:12 PM Dictation Location: [place] [address] Electronically authenticated by: [id number] Y Date: 11/11/2024 23:12 Dictated By: Dequan Lopez M.D. Signed By: 11/11/242313 DD/ 11 TD/TT: Bone Char Operator: [place] [address] XRay Report Signed Patient: BRYN CRISTOBAL MR#: [id number] : 1970 Acct:[id number] Age/Sex: 54 / F ADM Date: 11/11/24 Loc: LAB Attending Dr: Antonio Orozco M.D. Ordering Physician: Mateo Orozco M.D. Date of Service: 11/11/24 Procedure(s): XR jae st 2V Accession Number(s): [id number] cc: Mateo Orozco M.D. [address] [address] Patient Name: STEFANY CRISTOBAL MRN: [id number] date: 1970 Sex: F Assigned Patient Location: LAB Current Patient Location: LAB Accession/Order Numb er: [id number] Exam Date: 11/11/2024 23:11 Report Date: 11/11/2024 23:12 At the request of: MATEO OROZCO MD Procedure: XR chest 2V Chest 2 views CLINICAL HISTORY: Chronic Cough, Dyspnea , Epigastric Pain COMPARISON: None FINDINGS: Heart normal size. Lungs are clear. No free air. XR/XR chest 2V IMPRESSION: NO ACUTE CARDIOPULMONARY ABNORMALITY. Impression dictated by: Dequan Lopez Jr., DYumiko11/11/2024 11:12 PM Dictation Location: [employer] Electronically authenticated by: [id number] Y Date: 11/11/2024 23:12 Dictated By: Dequan Lopez M.D. Signed By: 11/11/242313 DD/ 11 TD/TT: Bone Char Operator: Reason For Referral Diagnosis 1 Polyp of descending colon, unspecified type (K63.5) Referral Organization [facility] Referring Provider First Name Paulino Referring [...] Status W/U Status Risk Notes Problem Depression (107105093) Depression (F32.9) Active confirmed Problem Dyspnea (194168653) Dyspnea (R06.00) Active confirmed Problem Chronic cough (53779463) Chronic cough (R05.3) Active confirmed Vital Signs Oximetry 98 % 04/08/2025 Blood pressure diastolic 80 mm Hg 04/08/2025 Height 62 in 04/08/2025 Blood pressure systolic 124 mm Hg 04/08/2025 Weight 130.2 lbs 04/08/2025 BMI 23.81 kg/m2 04/08/2025 Procedures Procedure Date Ordered Date Performed Result Body Sit e CARDIO Stress Test - Cardiolite 04/08/2025 N/A Encounters Encounter Location Date Provider Diagnosis [place] [address] [place] [address] 04/08/2025 Paulino Hoy Acute bronchitis J20 .9 and Chest pain R07.9 [place] [address] [place] [address] 11/10/2024 Paulino Hoy Chronic cough R05.3 ; Dyspnea R06.00 ; Depression F32.9 and Epigastric pain R10.13 [place] [address] [place] [address] 03/05/2025 Paulino Hoy Chronic cough R05.3 and Dyspnea R06.00 [place] [address] [place] [address] 12/29/2024 Paulino Hoy Acute bronchitis, unspecified organism J20.9 [facility] [address] [place] [address] 11/11/2024 Paulino Hoy [facility] [address] [place] [address] 11/12/2024 Paulino Hoy [facility] [address] [place] [address] 11/15/2024 Paulino y [facility] [address] [place] [address] 03/05/2025 Paulino Hoy Polyp of descending colon, unspecified type K63.5 [facility] [address] [place] [address] 03/10/2025 Paulino Orozco [facility] [address] [place] [address] 04/11/2025 Paulino Orozco Assessments Encounter Date Diagnosis (ICD Code) Assessment [...] vaporizer to help keep the drainage moist. Fsik-nsy-pvlhhaj Nasal Saline may help the stuffy and runny nose. Use Ibuprofen and or Tylenol as needed for fever, chills, body aches or pain. Children 5 years old should not be given ysmh-nxz-sxracth cough and cold medications such as guaifenesin and dextromethorphan. If you're over age 5, you may try zqdl-aqt-sfbejjx cold medications such as guaifenesin and dextromethorphan, [...] Cardiolite 04/08/20 25 High Sensitivity Troponin 04/08/2025 CULTURE SPUTUM 11/10/2024 QUANTIFERON TB GOLD PLUS 11/10/2024 SPUTUM GRAM STAIN 11/10/2024 XR CHEST 2 V 11/10/2024 THYROID PANEL (T4/TSH/FREE T3) THYROID PANEL (T4/TSH/FREE T3) 5 CMP (COMP MET MINA) w/eGFR CKD-EPI 2024 Next Appt Details Provider Name:Paulino Carter Josecaden, 01:45:00 PM, [address] [facility], [place], [address], Insurance Providers Payer Name Payer Address Payer Phone Subscriber Number Group Number Insured Name Patient Relationship to Insured Coverage Start Date Coverage End Date [employer] [place] [address] [address] [place] [address] [id number] Stefany Cristobal Self - patient is the insured
--- OUTSIDE RECORDS SUMMARY | 2025-04-29 08:06 | XMS_ITS | Patient Health Record ---
Author Organization [employer] [facility] Address [address] [place] [address] Care Team Providers Care Stitch Bonding Machine Tender Helper Name Role Phone Ayah Willingham Primary Care Provider Allergies Allergen (clinical drug ingredient) Drug/Non Drug [...] Status W/U Status Risk Notes Problem Dysuria (82208542) Dysuria (R30.0) Active confi rmed Problem Hyperlipidemia (07896103) Hyperlipidemia (E78.5) Active confirmed Problem Anxiety (46112638) Anxiety (F41.9) Active confi rmed Problem Gastroesophageal reflux disease (613338419) GERD (gastroesophageal reflux disease) (K21.9) Active confirmed Problem Restless legs syndrome (92117446) Restless leg syndrome (G25.81) Active confirmed Problem Gastritis (6517827) Gastritis (K29.70) Active c onfirmed Problem Irritable bowel syndrome (03169176) IBS (irritable bowel syndrome) (K58.9) Active confirmed Problem Hypercholesterolemia (23877030) Hypercholesterolemia (E78.00) Active confirmed Problem Anxiety depression (205434913) Anxiety with depression (F41.8) Active confirmed Problem Steatosis of liver (422463823) Hepatic steatosis (K76.0) Active confirmed Problem Amenorrhea (79214077) Lack of me nses (N91.2) Active confirmed Plan Of Treatment No Information Insurance Providers Payer Name Payer Address Payer Phone Subscriber Number Group Number Insured Name Patient Relationship to Insured Coverage Start Date Coverage End Date [facility] [address] [facility] [place] [address] [id number] MARIBEL RIVERA Self - patient is the insured 4 [employer] [facility] [address] [place] [address] [id number] MARIBEL RIVERA Self - patient is the insured 9 Medical (General) History Medical History History ICD Code Anxiety GERD Constipation Chronic Fatigue IBS Hyperlipidemia Restless Leg Syndrome Depression Uterine Fibroids Hospitalization History Reason Date(Month/Year) Chest Pain 05/23 [facility]
--- OUTSIDE RECORDS SUMMARY | 2025-04-29 08:07 | XMS_ITS | CCD ---
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 Name Role Phone [facility] Primary Care Provider CLAUDETTE Willingham Attending Pr ovider [facility] Primary Care Provider CLAUDETTE Willingham Attending Pr ovider MD Markus Luo Attending Provider Alissa Lopez Unavailable [facility] Primary Care Provider CLAUDETTE Willingham Attending Pr ovider MD Yossi Marcial Attending Provider [phone] Michael [facility] Namita Haque Emergency Provider [facility] Primary Care Provider NICOLA Briceño Attending Provider MD Yossi Marcial Attending Provider FRANSISCA MENDEZ Attending Unavailable GENERIC PROVIDER, NO ASSIGNED PCP Primary Care Unavailable MD Yossi Marcial Attending Provider MD Yossi Marcial Attending Provider MD Yossi Marcial Attending Provider DO Ranjan Brown Emergency Provider NO FAMILY, PHYSICIAN Primary Care Provider Unava ilable MD Yossi Marcial Admit Provider MD Yossi Marcial Attending Provider [phone] Generic Provider , No Assigned Pcp Primary Car e Provider Unavailable Kevin Sunil [place] Emergency Provider [phone] NO FAMILY, PHYSICIAN Primary Care Provider Unava ilable Yossi Marcial MD Admit Provider Yossi Marcial MD Attending Provider Briceñopebbles PETERSEN Melvi Priyanka Attending Provider [phone] [facility] Primary Care Provider NO FAMILY, PHYSICIAN Primary Care Unavailable Yossi Marcial Admitting Unavailab le Yossi Marcial Attending Unavailab le Briceño, Melvi D Attending Unavailable Briceño, Melvi D Admitting Unavailable [facility] Primary Care Unavaila ble Briceño, Melvi D Admitting Unavailable Briceño, Melvi D Attending Unavailable [facility] Primary Care Unavaila ble Briceño, Melvi D Attending Unavailable Briceño, Melvi D Admitting Unavailable NO FAMILY, PHYSICIAN Primary Care Unavailable Briceño, Melvi D Attending Unavailable Briceño, Melvi D Admitting Unavailable NO FAMILY, PHYSICIAN Primary Care Unavailable Briceño, Melvi D Attending Unavailable Briceño, Melvi D Admitting Unavailable NO FAMILY, PHYSICIAN Primary Care Unavailable [facility] Primary Care Unavaila ble Yossi Marcial Admitting Unavailab le Yossi Marcial Attending Unavailab le Briceño, Melvi D Attending Unavailable Briceño, Melvi D Admitting Unavailable [facility] Primary Care Unavaila ble Allergies Allergy Classification Reported Allergen(s) Allergy Type Date of Onset Reaction(s) Facility (15 sources) Penicillins; Translations: [PENICILLINS] Allergy to substance 9 [facility] (1 source) Penicillin G Drug Allergy passed out [facility] Other (10 sources) Penicillin G Procaine; Translations: [penicillin G procaine] Allergy to substance 2 passed out [facility] Medications Current Medications Medication Drug Class(es) Dates [...] Start: 10-19-2019 take 1 capsule by mo [facility] once daily Omeprazole 20 mg capsule,delayed release(DR/EC) [...] Nonspecific abdominal pain; Translations: [Unspecified abdominal pain] 01-21-2019 Episodic Anxiety disorders (3 sources) Anxiety; Translations: [...] Translations: [Delusional disorders] Onset: 4 06-18-2024 Chronic Viral infection (3 sources) COVID-19; Translations: [COVID-19] Onset: Past or Other Problems Problem Classification Problem Date Documented Da te Episodic/Chronic Sprains and strains (10 sources) Low back strain; Translations: [Strain of muscle, fascia and tendon of lower back, initial encounter] Onset: 05-08-2024 04-04-2024 Episodic Viral infection (1 source) Disease caused by 2019-nCoV; Translations: [COVID-19] 04-27-2024 Episodic Results Test Name Value Interpretation Reference Range Facility ECG 12 lead ECGon 06-18-2024 ECG 12 lead ECG [facility] [place] [address] Electrocardiograph Report Signed Patient: Patito Cristobal MR#: [id number] 8 : 1970 Acct:[id number] Age/Sex: 53 / F ADM Date: 06/17/24 Loc: Room: [address] [place] [address] Type: ADM IN Attending Dr: Yossi Marcial [...] : 456 ms Sinus rhythm with short [place] Cannot rule out Inferior infarct , age undetermined Abnormal ECG Confirmed by Ivette Avendaño ([id number]) on 06/19/2024 10:21:04 AM Referred By: Electronically Signed By: Ivette Avednaño Transcribed By: MUS Signed By Ivette Avendaño MD 4 1021 Normal [facility] Alanine aminotransferase [En zymatic activity/volume] in Serum or PlasmaOrdered By: Ranjan Brown on 06-17-2024 ALT [Catalytic activity/Vol] 13 U/L Normal [facility] Comment on above: Performed By: #### C MP, ETOH, CBC #### [address] ALT [Catalytic activity/Vol] Alanine aminotransferase [Enzymatic activity/volume] in Serum or Plasma [facility] Albumin [Mass/volume] in Ser um or Plasma by Bromocresol green (BCG) dye binding methoOrdered By: Ranjan Brown on 06-17-2024 Albumin BCG dye [Mass/Vol] 4.5 g/dL 3.5-5.7 [facility] Albumin BCG dye [Mass/Vol] Albumin [Mass/volume] in Serum or Plasma by Bromocresol green (BCG) dye binding metho 3.5-5.7 [facility] Alkaline phosphatase [Enzyma tic activity/volume] in Serum or PlasmaOrdered By: Ranjan Brown on 06-17-2024 ALP [Catalytic activity/Vol] 44 U/L Normal 34-104 [facility] Comment on above: Performed By: #### C MP, ETOH, CBC #### [facility] [address] ALP [Catalytic activity/Vol] Alkaline phosphatase [Enzymatic activity/volume] in Serum or Plasma 34-104 [facility] Amphetamine Screen Ql (U)Ord ered By: Ranjan Kevin on 06-17-2024 Amphetamines Ql (U) Amphetamines screen Negativ e [facility] Amphetamines Ql (U) Negative Negative [place] Appearance of UrineOrdered B y: Ranjan Brown on 06-17-2024 Appearance (U) Urine appearance Clear [facility] Aspartate aminotransferase [ Enzymatic activity/volume] in Serum or PlasmaOrdered By: Ranjan Kevin on 06-17-2024 AST [Catalytic activity/Vol] 16 U/L Normal 39 [facility] Comment on above: Performed By: #### C MP, ETOH, CBC #### [address] AST [Catalytic activity/Vol] Aspartate aminotransferase [Enzymatic activity/volume] in Serum or Plasma 13 [facility] Automated basophil %Ordered By: Ranjan Brown on 06-17-2024 Basophils/100 WBC (Bld) 1.3 % Normal . [facility] Comment on above: Performed By: #### C MP, ETOH, CBC #### [address] Automated basophil countOrde red By: Ranjanlissette Brown on 06-17-2024 Basophils (Bld) [#/Vol] 0.1 10*3/uL Normal 0.0-0.2 [facility] Comment on above: Result Comment: PERF ORMED BY: [place] [address] PATHOLOGIST EXECUTIVE TEAM LEADER LEPIDIO DC M.D. Performed By: #### C MP, ETOH, CBC #### [address] Automated blood monocyte cou ntOrdered By: Ranjan Brown on 06-17-2024 Monocytes (Bld) [#/Vol] 0.4 10*3/uL Normal 0.0-0.8 [facility] Comment on above: Performed By: #### C MP, ETOH, CBC #### [address] Automated eosinophil %Ordere d By: Ranjan Brown on 06-17-2024 Eosinophils/100 WBC (Bld) 1.2 % Normal . [facility] Comment on above: Performed By: #### C MP, ETOH, CBC #### [address] Automated eosinophil countOr dered By: Ranjan Brown on 06-17-2024 Eosinophils (Bld) [#/Vol] 0.1 10*3/uL Normal 0.0-0.45 [facility] Comment on above: Performed By: #### C MP, ETOH, CBC #### [address] Automated monocyte %Ordered By: Ranjan Brown on 06-17-2024 Monocytes/100 WBC (Bld) 4.7 % Normal . [facility] Comment on above: Performed By: #### C MP, ETOH, CBC #### [address] Automated neutrophil %Ordere d By: Ranjan Brown on 06-17-2024 Neutrophils/100 WBC (Bld) 61.0 % Normal . [facility] Comment on above: Performed By: #### C MP, ETOH, CBC #### [place] [address] [place] Bacteria [Presence] in Urine by AutomatedOrdered By: Ranjan Brown on 06-17-2024 Bacteria Auto Ql (U) Rare [HPF] None Seen [facility] Bacteria Auto Ql (U) Bacteria [Presence] in Urine by Automated None Seen [facility] Barbiturates [Presence] in U rine by Screen methodOrdered By: Ranjan Brown on 06-17-2024 Barbiturates Screen Ql (U) Negative Negative [facility] Barbiturates Screen Ql (U) Barbiturates [Presence] in Urine by Screen method Negative [facility] Basophils Auto (Bld) [#/Vol] Ordered By: Ranjan Brown on 06-17-2024 Basophils (Bld) [#/Vol] Automated basoph il count 0.0-0.2 [facility] Basophils/100 WBC Auto (Bld) Ordered By: Ranjan Brown on 06-17-2024 Basophils/100 WBC (Bld) Automated basophil % . [facility] Benzodiazepines Screen Ql (U )Ordered By: Ranjan Brown on 06-17-2024 Benzodiazepines Ql (U) Negative Negative [facility] Benzodiazepines Ql (U) Benzodiazepines [Presence] in Urine by Screen method Negative [facility] Benzoylecgonine [Presence] i n Urine by Screen methodOrdered By: Ranjan Brown on 06-17-2024 Benzoylecgonine Screen Ql (U) Negative Negative [facility] Benzoylecgonine Screen Ql (U) Benzoylecgonine [Presence] in Urine by Screen method Negative [facility] Bilirubin Test strip Ql (U)O rdered By: Ranjan Brown on 06-17-2024 Bilirubin Ql (U) Negative Negative [facility] Bilirubin Ql (U) Bilirubin.total [Presence] in Urine by Test strip Negative [facility] Bilirubin.total [Mass/volume ] in Serum or PlasmaOrdered By: Ranjan Brown on 06-17-2024 Bilirubin [Mass/Vol] 0.3 mg/dL Normal 0.3-1.0 [facility] Comment on above: Performed By: #### C MP, ETOH, CBC #### [facility] [place] [facility] [address] Bilirubin [Mass/Vol] Bilirubin.total [Mass/volume] in Serum or Plasma 0.3-1.0 [facility] Calcium [Mass/volume] in Ser um or PlasmaOrdered By: Ranjan Brown on 06-17-2024 Calcium [Mass/Vol] 9.7 mg/dL Normal 8.6-10.3 [facility] Comment on above: Performed By: #### C MP, ETOH, CBC #### [facility] [place] [facility] [address] [place] [id number] [place] Calcium [Mass/Vol] Calcium [Mass/volume ] in Serum or Plasma 8.6-10.3 [facility] Cannabinoids [Presence] in U rine by Screen methodOrdered By: Ranjan Brown on 06-17-2024 Cannabinoids Screen Ql (U) Negative Negative [facility] Comment on above: These are unconfirme d results and should not be used for legal purposes. Drug Cut-Off Concentration: AMPH 1000 ng/mL CORI 200 ng/mL KLEBER 200 ng/mL COCM 300 ng/mL OP 300 ng/mL PCP 25 ng/mL THC 20 ng/mL Cannabinoids Screen Ql (U) Cannabinoids [Presence] in Urine by Screen method Negative [facility] Comment on above: These are unconfirme d results and should not be used for legal purposes. Drug Cut-Off Concentration: AMPH 1000 ng/mL CORI 200 ng/mL KLEBER 200 ng/mL COCM 300 ng/mL OP 300 ng/mL PCP 25 ng/mL THC 20 ng/mL Carbon dioxide, total [Moles /volume] in Serum or PlasmaOrdered By: Ranjan Brown on 06-17-2024 CO2 [Moles/Vol] 26.1 mmol/L Normal 21.0-31.0 [facility] Comment on above: Performed By: #### C MP, ETOH, CBC #### [facility] [place] [facility] [address] [place] [address] [place] CO2 [Moles/Vol] Carbon dioxide, tota l [Moles/volume] in Serum or Plasma 21.0-31.0 [facility] Chloride [Moles/volume] in S raegan or PlasmaOrdered By: Ranjan Brown on 06-17-2024 Chloride [Moles/Vol] 104 mmol/L Normal 98-107 [facility] Comment on above: Performed By: #### C MP, ETOH, CBC #### [facility] [place] [facility] [address] [place] [address] [place] Chloride [Moles/Vol] Chloride [Moles/volume] in Serum or Plasma 98-107 [facility] Cholesterol [Mass/volume] in Serum or PlasmaOrdered By: Yossi Marcial on 06-17-2024 Cholesterol [Mass/Vol] 206 mg/dL High 140-200 [facility] Comment on above: Chol less than 200 m g/dl low riskChol 201-239 mg/dl borderline riskChol 240 mg/dl and greater high risk Order Comment: FASTI NG Y Comment USE BLOOD OBTAINED IN ED PLEASE Result Comment: Chol less than 200 mg/dl low risk Chol 201-239 mg/dl borderline risk Chol 240 mg/dl and greater high risk Performed By: #### L IPID, TSH3 [id number], [id number] #### [facility] [address] Cholesterol [Mass/Vol] Cholesterol [Mass/volume] in Serum or Plasma High 140-200 [facility] Comment on above: Chol less than 200 m g/dl low riskChol 201-239 mg/dl borderline riskChol 240 mg/dl and greater high risk Cholesterol in HDL [Mass/vol ume] in Serum or PlasmaOrdered By: Yossi Marcial on 06-17-2024 Cholesterol in HDL [Mass/Vol] Serum or plasma high density lipoprotein (HDL) cholesterol measurement 23-92 [facility] Comment on above: HDL CHOL ATP-III CLA SSIFICATION Cardiovascular RiskHDL > or equal to 60 mg/dL LOWHDL < 40 mg/dL HIGH Cholesterol in LDL Calc [Mas s/Vol]Ordered By: Yossi Marcial on 06-17-2024 Cholesterol in LDL [Mass/Vol] 134 mg/dL High 0-100 [facility] Comment on above: LDL ATP III CLASSIFI CATIONLDL less than 100 mg/dL OptimalLDL 100-129 mg/dL Near or above optimalLDL 130-159 mg/dL Borderline highLDL 160-189 mg/dL HighLDL greater than 189 mg/dL Very high Cholesterol in LDL [Mass/Vol] Cholesterol in LDL [Mass/volume] in Serum or Plasma by calculation High 0-100 [facility] Comment on above: LDL ATP III CLASSIFI CATIONLDL less than 100 mg/dL OptimalLDL 100-129 mg/dL Near or above optimalLDL 130-159 mg/dL Borderline highLDL 160-189 mg/dL HighLDL greater than 189 mg/dL Very high Cholesterol in VLDL Calc [Ma ss/Vol]Ordered By: Yossi Marcial on 06-17-2024 Cholesterol in VLDL [Mass/Vol] 32 mg/dL [facility] Cholesterol in VLDL [Mass/Vol] Cholesterol in VLDL [Mass/volume] in Serum or Plasma by calculation [facility] Color Auto (U)Ordered By: Sunil Brown on 06-17-2024 Color (U) Color of Urine by Auto Yellow [facility] Color of Urine by AutoOrdere d By: Ranjan Brown on 06-17-2024 Color (U) Colorless Normal Yellow [facility] Comment on above: Order Comment: Name Collection Type:: Clean-Voided Midstream Performed By: #### A DDONUAPLUS, URDS, UHCG, CUU #### [facility] [address] Complete Blood Count Auto Di ffon 06-17-2024 Mean Corpuscular HGB Conc 33.5 g/dL Normal 32.0-35.0 [facility] Comment on above: Performed By: #### C MP, ETOH, CBC #### [facility] [address] Monocytes/100 WBC (Bld) 18.74 % Normal 0.00-20.00 [facility] Comment on above: Performed By: #### C MP, ETOH, CBC #### [facility] [address] NRBC% 0.1 /100{WBC} Normal 0-0.5 [facility] Comment on above: Performed By: #### C MP, ETOH, CBC #### [facility] [address] Comprehensive Metabolic Pane edith 06-17-2024 Albumin [Mass/Vol] 4.5 g/dL Normal 3.5-5.7 [facility] Comment on above: Performed By: #### C MP, ETOH, CBC #### [facility] [address] [place] [address] [place] Creatinine Clr Calc Pharmacy 82.99 Normal [facility] Comment on above: Result Comment: PERF ORMED BY: [place] [address] PATHOLOGIST EXECUTIVE TEAM LEADER ELPIDIO DC M.D. Performed By: #### C MP, ETOH, CBC #### [facility] [address] [place] [address] [place] GFR/1.73 sq M.predicted MDRD (S/P/Bld) [Vol rate/Area] mL/min/{1.73_m2} Normal [facility] Comment on above: Performed By: #### C MP, ETOH, CBC #### [facility] [address] Creatinine [Mass/volume] in Serum or PlasmaOrdered By: Ranjan Brown on 06-17-2024 Creatinine [Mass/Vol] 0.62 mg/dL Normal 0.60-1.20 [facility] Comment on above: Performed By: #### C MP, ETOH, CBC #### [facility] [address] Creatinine [Mass/Vol] Creatinine [Mass/volume] in Serum or Plasma 0.60-1.20 [facility] Dipstick and Microscopicon 1 Bacteria,Urine Rare Normal None Seen [facility] Comment on above: Order Comment: Name Collection Type:: Clean-Voided Midstream Performed By: #### A DDONUAPLUS, URDS, UHCG, CUU #### [place] [address] [place] Bilirubin,Urine Negative Normal Negative [facility] Comment on above: Order Comment: Name Collection Type:: Clean-Voided Midstream Performed By: #### A DDONUAPLUS, URDS, UHCG, CUU #### [address] Glucose Ql (U) Normal Normal Normal [facility] Comment on above: Order Comment: Name Collection Type:: Clean-Voided Midstream Performed By: #### A DDONUAPLUS, URDS, UHCG, CUU #### [place] [address] [place] Hyaline Casts,Urine None Normal 0-8 [facility] Comment on above: Order Comment: Name Collection Type:: Clean-Voided Midstream Performed By: #### A DDONUAPLUS, URDS, UHCG, CUU #### [place] [address] [place] Nitrite,Urine Negative Normal Negative [facility] Comment on above: Order Comment: Name Collection Type:: Clean-Voided Midstream Performed By: #### A DDONUAPLUS, URDS, UHCG, CUU #### [place] [address] [place] Occult Blood,Urine Negative Normal Negative [facility] Comment on above: Order Comment: Name Collection Type:: Clean-Voided Midstream Performed By: #### A DDONUAPLUS, URDS, UHCG, CUU #### [address] Protein,Urine Negative Normal Negative [facility] Comment on above: Order Comment: Name Collection Type:: Clean-Voided Midstream Performed By: #### A DDONUAPLUS, URDS, UHCG, CUU #### [address] RBC,Urine 1-2 Normal 0-4 [facility] Comment on above: Order Comment: Name Collection Type:: Clean-Voided Midstream Performed By: #### A DDONUAPLUS, URDS, UHCG, CUU #### [address] Specificy [place],Urine 1.010 Normal 1.001-1.030 [facility] Comment on above: Order Comment: Name Collection Type:: Clean-Voided Midstream Performed By: #### A DDONUAPLUS, URDS, UHCG, CUU #### [place] [address] [place] Squamous Epithelial Cell,Urine 1-2 Normal 0-2 [facility] Comment on above: Order Comment: Name Collection Type:: Clean-Voided Midstream Performed By: #### A DDONUAPLUS, URDS, UHCG, CUU #### [address] Urobilinogen,Urine Normal Normal Normal [facility] Comment on above: Order Comment: Name Collection Type:: Clean-Voided Midstream Performed By: #### A DDONUAPLUS, URDS, UHCG, CUU #### [place] [address] [place] WBC,Urine 10-19 High 0-4 [facility] Comment on above: Order Comment: Name Collection Type:: Clean-Voided Midstream Performed By: #### A DDONUAPLUS, URDS, UHCG, CUU #### [place] [address] [place] Drug Screen,Urineon 06-17-20 24 Amphetamine Screen,Urine Negative Normal Negative [facility] Comment on above: Performed By: #### A DDONUAPLUS, URDS, UHCG, CUU #### [address] Barbiturate Screen,Urine Negative Normal Negative [facility] Comment on above: Performed By: #### A DDONUAPLUS, URDS, UHCG, CUU #### [address] Benzodiazepines Screen,Urine Negative Normal Negative [facility] Comment on above: Performed By: #### A DDONUAPLUS, URDS, UHCG, CUU #### [address] Cannabinoid Screen,Urine Negative Normal Negative [facility] Comment on above: Result Comment: Thes e are unconfirmed results and should not be used for legal purposes. Drug Cut-Off Concentration: AMPH 1000 ng/mL CORI 200 ng/mL KLEBER 200 ng/mL COCM 300 ng/mL OP 300 ng/mL PCP 25 ng/mL THC 20 ng/mL PERFORMED BY: [place] [address] PATHOLOGIST EXECUTIVE TEAM LEADER ELPIDIO DC M.D. Performed By: #### A DDONUAPLUS, URDS, UHCG, CUU #### [address] Cocaine Screen,Urine Negative Normal Negative [facility] Comment on above: Performed By: #### A DDONUAPLUS, URDS, UHCG, CUU #### [facility] [place] [facility] [address] Opiate Screen,Urine Negative Normal Negative [facility] Comment on above: Performed By: #### A DDONUAPLUS, URDS, UHCG, CUU #### [facility] [place] [facility] [address] [place] [address] [place] Phencyclidine Screen,Urine Negative Normal Negative [facility] Comment on above: Performed By: #### A DDONUAPLUS, URDS, UHCG, CUU #### [facility] [place] [facility] [address] [place] [address] [place] Eosinophils Auto (Bld) [#/Vo l]Ordered By: Ranjan Brown on 06-17-2024 Eosinophils (Bld) [#/Vol] Automated eosinophil count 0.0-0.45 [facility] Eosinophils/100 WBC Auto (Bl d)Ordered By: Ranjan Brown on 06-17-2024 Eosinophils/100 WBC (Bld) Automated eosinophil % . [facility] Epithelial cells.squamous [# /area] in Urine sediment by Automated countOrdered By: Ranjan Brown on 06-17-2024 Epithelial cells.squamous Auto (Urine sed) [#/Area] 1-2 [HPF] 0-2 [facility] Epithelial cells.squamous Auto (Urine sed) [#/Area] Epithelial cells.squamous [#/area] in Urine sediment by Automated count 0-2 [facility] Erythrocyte distribution wid th Auto (RBC) [Ratio]Ordered By: Ranjan Brown on 06-17-2024 Erythrocyte distribution width (RBC) [Ratio] Erythrocyte distribution width [Ratio] by Automated count 11.9-15.3 [facility] Erythrocyte distribution wid th [Ratio] by Automated countOrdered By: Ranjan Brown on 06-17-2024 Erythrocyte distribution width (RBC) [Ratio] 13.8 % Normal 11.9-15.3 [facility] Comment on above: Performed By: #### C MP, ETOH, CBC #### [facility] [place] [facility] [address] [place] [address] [place] Erythrocytes [#/area] in Uri ne sediment by Automated countOrdered By: Ranjan Brown on 06-17-2024 RBC Auto (Urine sed) [#/Area] 1-2 [HPF] 0-4 [facility] RBC Auto (Urine sed) [#/Area] Erythrocytes [#/area] in Urine sediment by Automated count 0-4 [facility] Erythrocytes [#/volume] in B lood by Automated countOrdered By: Ranjan Brown on 06-17-2024 RBC (Bld) [#/Vol] 4.34 10*6/uL Normal 3.60-5.00 [place] Comment on above: Performed By: #### C MP, ETOH, CBC #### [facility] [place] [facility] [address] Ethanol [Mass/volume] in Ser um or PlasmaOrdered By: Ranjan Brown on 06-17-2024 Ethanol [Mass/Vol] mg/dL Normal [facility] Comment on above: Performed By: #### C MP, ETOH, CBC #### [facility] [place] [facility] [address] Ethanol [Mass/Vol] TNP [facility] Comment on above: Test not performed Ethanol [Mass/Vol] Ethanol [Mass/volume ] in Serum or Plasma [facility] Comment on above: Test not performed Ethyl Alcohol Profileon Percent Ethanol Not performed Normal [facility] Comment on above: Result Comment: PERF ORMED BY: [place] [address] PATHOLOGIST EXECUTIVE TEAM LEADER ELPIDIO DC M.D. Performed By: #### C MP, ETOH, CBC #### [facility] [place] [facility] [address] [place] [address] [place] Globulin Calc (S) [Mass/Vol] Ordered By: Ranjan Brown on 06-17-2024 Globulin (S) [Mass/Vol] Serum globulin measurement by calculation (mass/volume) [facility] Glucose [Mass/volume] in Ser um or PlasmaOrdered By: Ranjan Brown on 06-17-2024 Glucose [Mass/Vol] 108 mg/dL High 70-100 [facility] Comment on above: ADA recommended refe rence rangeRandom Glucose Reference Range is dependent on time and content of last meal. Glucose of more than 200 mg/dL in a nonstressed, ambulatory subject supports the diagnosis of Diabetes Mellitus. Result Comment: [place] om Glucose Reference Range is dependent on time and content of last meal. Glucose of more than 200 mg/dL in a nonstressed, ambulatory subject supports the diagnosis of Diabetes Mellitus. ADA recommended reference range Performed By: #### C MP, ETOH, CBC #### [facility] [address] Glucose [Mass/Vol] Glucose [Mass/volume ] in Serum or Plasma High 70-100 [facility] Comment on above: ADA recommended refe rence rangeRandom Glucose Reference Range is dependent on time and content of last meal. Glucose of more than 200 mg/dL in a nonstressed, ambulatory subject supports the diagnosis of Diabetes Mellitus. Glucose [Mass/volume] in Uri ne by Test stripOrdered By: Ranjan Brown on 06-17-2024 Glucose Test strip (U) [Mass/Vol] Normal mg/dL Normal [facility] Glucose Test strip (U) [Mass/Vol] Glucose [Mass/volume] in Urine by Test strip Normal [facility] HCG ( test) IA.rapi d Ql (U)Ordered By: Ranjan Brown on 06-17-2024 HCG ( test) Ql (U) Negative [facility] HCG ( test) Ql (U) Urine human chorionic gonadotropin (hCG) detection by immunoassay [facility] HCG,Urineon 06-17-2024 Beta HCG ( test) Ql (U) Negative Normal [facility] Comment on above: Order Comment: Name Collection Type:: Clean-Voided Midstream Result Comment: PERF ORMED BY: [place] [address] PATHOLOGIST EXECUTIVE TEAM LEADER ELPIDIO DC M.D. Performed By: #### A DDONUAPLUS, URDS, UHCG, CUU #### [facility] [place] [facility] [address] Hematocrit Auto (Bld) [Volum e fraction]Ordered By: Ranjan Brown on 06-17-2024 Hematocrit (Bld) [Volume fraction] Hematocrit [Volume Fraction] of Blood by Automated count 34.0-46.4 [facility] Hematocrit [Volume Fraction] of Blood by Automated countOrdered By: Ranjan Brown on 06-17-2024 Hematocrit (Bld) [Volume fraction] 37.2 % Normal 34.0-46.4 [facility] Comment on above: Performed By: #### C MP, ETOH, CBC #### [facility] [address] Hemoglobin Test strip Ql (U) Ordered By: Ranjan Brown on 06-17-2024 Hemoglobin Ql (U) Negative Negative [facility] Hemoglobin Ql (U) Hemoglobin [Presence ] in Urine by Test strip Negative [facility] Hemoglobin [Mass/volume] in BloodOrdered By: Ranjan Brown on 06-17-2024 Hemoglobin (Bld) [Mass/Vol] 12.5 g/dL Normal 11.8-15.4 [facility] Comment on above: Performed By: #### C MP, ETOH, CBC #### [facility] [place] [facility] [address] [place] [address] Hemoglobin (Bld) [Mass/Vol] Hemoglobin [Mass/volume] in Blood 11.8-15.4 [facility] Hyaline casts [#/area] in Ur ine sediment by Automated countOrdered By: Ranjan Brown on 06-17-2024 Hyaline casts Auto (Urine sed) [#/Area] None [LPF] 0-8 [facility] Hyaline casts Auto (Urine sed) [#/Area] Hyaline casts [#/area] in Urine sediment by Automated count 0-8 [facility] Ketones Test strip Ql (U)Ord ered By: Ranjan Brown on 06-17-2024 Ketones Ql (U) Ketones [Presence] i n Urine by Test strip Negative [facility] Ketones [Presence] in Urine by Test stripOrdered By: Ranjan Brown on 06-17-2024 Ketones Ql (U) Negative Normal Negative [facility] Comment on above: Order Comment: Name Collection Type:: Clean-Voided Midstream Performed By: #### A DDONUAPLUS, URDS, UHCG, CUU #### [facility] [place] [facility] [address] Laboratory - Microbiology an d Antimicrobial susceptibilityOrdered By: Ranjan Brown on 06-17-2024 Bacteria identified Cx Nom (U) 2 Days [facility] Leukocyte esterase [Presence ] in Urine by Test stripOrdered By: Ranjan Brown on 06-17-2024 Leukocyte esterase Test strip Ql (U) 4+ High Negative [facility] Comment on above: Order Comment: Name Collection Type:: Clean-Voided Midstream Performed By: #### A DDONUAPLUS, URDS, UHCG, CUU #### [facility] [place] [facility] [address] Leukocyte esterase Test strip Ql (U) Leukocyte esterase [Presence] in Urine by Test strip High Negative [facility] Leukocytes [#/area] in Urine sediment by Automated countOrdered By: Ranjan Brown on 06-17-2024 WBC Auto (Urine sed) [#/Area] 10-19 [HPF] High 0-4 [facility] WBC Auto (Urine sed) [#/Area] Leukocytes [#/area] in Urine sediment by Automated count High 0-4 [facility] Leukocytes [#/volume] correc jahaira for nucleated erythrocytes in Blood by Automated counOrdered By: Ranjan Brown on 06-17-2024 WBC corrected for nucl RBC Auto (Bld) [#/Vol] 7.7 10*3/uL 3.8-11.6 [facility] WBC corrected for nucl RBC Auto (Bld) [#/Vol] Leukocytes [#/volume] corrected for nucleated erythrocytes in Blood by Automated coun 3.8-11.6 [facility] Leukocytes [#/volume] in Blo od by Automated countOrdered By: Ranjan Brown on 06-17-2024 WBC (Bld) [#/Vol] 7.7 10*3/uL Normal 3.8-11.6 [facility] Comment on above: Performed By: #### C MP, ETOH, CBC #### [facility] [place] [facility] [address] Lipid Panelon 06-17-2024 LDL Cholesterol,Calculated 134 mg/dL High 0-100 [facility] Comment on above: Order Comment: AUNDREA Ro Comment USE BLOOD OBTAINED IN ED PLEASE Result Comment: LDL ATP III CLASSIFICATION LDL less than 100 mg/dL Optimal LDL 100-129 mg/dL Near or above optimal LDL 130-159 mg/dL Borderline high LDL 160-189 mg/dL High LDL greater than 189 mg/dL Very high Performed By: #### L IPID, TSH3 wRFLX, [id number] #### [address] Triglyceride w/Reflex 162 mg/dL High 0-149 [facility] Comment on above: Order Comment: [...] Performed By: #### L IPID, TSH3 wRFLX, [id number] #### [address] VLDL CHOLESTEROL 32 mg/dL Normal [facility] Comment on above: Order Comment: AUNDREA Ro Comment USE BLOOD OBTAINED IN ED PLEASE Performed By: #### L IPID, TSH3 wRFLX, [id number] #### [address] Lymphocytes Auto (Bld) [#/Vo l]Ordered By: Ranjan Brown on 06-17-2024 Lymphocytes (Bld) [#/Vol] Lymphocytes [#/volume] in Blood by Automated count 1.00-4.8 [facility] Lymphocytes [#/volume] in Bl ood by Automated countOrdered By: Ranjan Brown on 06-17-2024 Lymphocytes (Bld) [#/Vol] 2.4 10*3/uL Normal 1.00-4.8 [facility] Comment on above: Performed By: #### C MP, ETOH, CBC #### [facility] [address] [place], [place] [id number] [place] Lymphocytes/100 WBC Auto (Bl d)Ordered By: Ranjan Brown on 06-17-2024 Lymphocytes/100 WBC (Bld) Lymphocytes/100 leukocytes in Blood by Automated count . [facility] Lymphocytes/100 leukocytes i n Blood by Automated countOrdered By: Ranjan Brown on 06-17-2024 Lymphocytes/100 WBC (Bld) 31.8 % Normal . [facility] Comment on above: Performed By: #### C MP, ETOH, CBC #### [facility] [address] MCH Auto (RBC) [Entitic mass ]Ordered By: Ranjan Brown on 06-17-2024 MCH (RBC) [Entitic mass] MCH [Entitic ma ss] by Automated count 24.7-34.3 [facility] MCH [Entitic mass] by Automa jahaira countOrdered By: Ranjan Brown on 06-17-2024 MCH (RBC) [Entitic mass] 28.7 pg Normal 24.7-34.3 [facility] Comment on above: Performed By: #### C MP, ETOH, CBC #### [facility] [place] [facility] [address] MCHC Auto (RBC) [Mass/Vol]Or dered By: Ranjan Brown on 06-17-2024 MCHC (RBC) [Mass/Vol] 33.5 g/dL 32.0-35.0 [facility] MCHC (RBC) [Mass/Vol] MCHC [Mass/volume] by Automated count 32.0-35.0 [facility] MCV Auto (RBC) [Entitic vol] Ordered By: Ranjan Brown on 06-17-2024 MCV (RBC) [Entitic vol] MCV [Entitic vol ume] by Automated count 80-100 [facility] MCV [Entitic volume] by Auto mated countOrdered By: Ranjan Brown on 06-17-2024 MCV (RBC) [Entitic vol] 85.8 fL Normal 80-100 [facility] Comment on above: Performed By: #### C MP, ETOH, CBC #### [facility] [place] [facility] [address] Monocyte distribution width [Entitic volume] in Blood by AutomatedOrdered By: Ranjan Brown on 06-17-2024 Monocyte distribution width Auto (Bld) [Entitic vol] 18.74 % 0.00-20.00 [facility] Monocyte distribution width Auto (Bld) [Entitic vol] Monocyte distribution width [Entitic volume] in Blood by Automated 0.00-20.00 [facility] Monocytes Auto (Bld) [#/Vol] Ordered By: Ranjan Brown on 06-17-2024 Monocytes (Bld) [#/Vol] Automated blood monocyte count 0.0-0.8 [facility] Monocytes/100 WBC Auto (Bld) Ordered By: Ranjan Brown on 06-17-2024 Monocytes/100 WBC (Bld) Automated monocyte % . [facility] Neutrophils Auto (Bld) [#/Vo l]Ordered By: Ranjan Brown on 06-17-2024 Neutrophils (Bld) [#/Vol] Neutrophils [#/volume] in Blood by Automated count 1.8-7.7 [facility] Neutrophils [#/volume] in Bl ood by Automated countOrdered By: Ranjan Brown on 06-17-2024 Neutrophils (Bld) [#/Vol] 4.7 10*3/uL Normal 1.8-7.7 [facility] Comment on above: Performed By: #### C MP, ETOH, CBC #### [address] Neutrophils/100 WBC Auto (Bl d)Ordered By: Ranjan Brown on 06-17-2024 Neutrophils/100 WBC (Bld) Automated neutrophil % . [facility] Nitrite Test strip Ql (U)Ord ered By: Ranjan Brown on 06-17-2024 Nitrite Ql (U) Negative Negative [facility] Nitrite Ql (U) Nitrite [Presence] i n Urine by Test strip Negative [facility] No Panel InformationOrdered By: Ranjan Brown on 06-17-2024 Estimated GFR (CKD-EPI) > 60.0 mL/Min [facility] Creatinine Clearance (Chem 82.99 [facility] Nucleated erythrocytes [Pres ence] in Blood by Automated countOrdered By: Ranjan Brown on 06-17-2024 Nucleated RBC Auto Ql (Bld) 0.1 /100{WBC} 0-0.5 [facility] Nucleated RBC Auto Ql (Bld) Nucleated erythrocytes [Presence] in Blood by Automated count 0-0.5 [facility] Opiates [Presence] in Urine by Screen methodOrdered By: Ranjan Brown on 06-17-2024 Opiates Screen Ql (U) Negative Negative [facility] Opiates Screen Ql (U) Opiates [Presence] in Urine by Screen method Negative [facility] Phencyclidine Screen Ql (U)O rdered By: Ranjan Brown on 06-17-2024 Phencyclidine Ql (U) Negative Negative [facility] Phencyclidine Ql (U) Phencyclidine [Presence] in Urine by Screen method Negative [facility] Platelet mean volume Auto (B ld) [Entitic vol]Ordered By: Ranjan Brown on 06-17-2024 Platelet mean volume (Bld) [Entitic vol] Platelet mean volume [Entitic volume] in Blood by Automated count 6.3-10.7 [facility] Platelet mean volume [Entiti c volume] in Blood by Automated countOrdered By: Ranjan Brown on 06-17-2024 Platelet mean volume (Bld) [Entitic vol] 8.2 fL Normal 6.3-10.7 [facility] Comment on above: Performed By: #### C MP, ETOH, CBC #### [facility] [place] [facility] [address] [place] [address] [place] Platelets Auto (Bld) [#/Vol] Ordered By: Ranjan Brown on 06-17-2024 Platelets (Bld) [#/Vol] Platelets [#/vol ume] in Blood by Automated count 150-450 [facility] Platelets [#/volume] in Bloo d by Automated countOrdered By: Ranjan Brown on 06-17-2024 Platelets (Bld) [#/Vol] 232 10*3/uL Normal 150-450 [facility] Comment on above: Performed By: #### C MP, ETOH, CBC #### [facility] [place] [facility] [address] [place] [id number] [place] Potassium [Moles/volume] in Serum or PlasmaOrdered By: Ranjan Brown on 06-17-2024 Potassium [Moles/Vol] 3.9 mmol/L Normal 3.5-5.1 [facility] Comment on above: Performed By: #### C MP, ETOH, CBC #### [facility] [address] Potassium [Moles/Vol] Potassium [Moles/volume] in Serum or Plasma 3.5-5.1 [facility] Protein Test strip (U) [Mass /Vol]Ordered By: Ranjan Brown on 06-17-2024 Protein (U) [Mass/Vol] Negative Negative [facility] Protein (U) [Mass/Vol] Protein [Mass/vol ume] in Urine by Test strip Negative [facility] Protein [Mass/volume] in Ser um or PlasmaOrdered By: Ranjan Brown on 06-17-2024 Protein [Mass/Vol] 7.6 g/dL Normal 6.4-8.9 [facility] Comment on above: Performed By: #### C MP, ETOH, CBC #### [address] Protein [Mass/Vol] Protein [Mass/volume ] in Serum or Plasma 6.4-8.9 [facility] RBC Auto (Bld) [#/Vol]Ordere d By: Ranjan Brown on 06-17-2024 RBC (Bld) [#/Vol] Erythrocytes [#/volume] in Blood by Automated count 3.60-5.00 [facility] Serum globulin measurement b y calculation (mass/volume)Ordered By: Ranjan Brown on 06-17-2024 Globulin (S) [Mass/Vol] 3.1 g/dL Normal [facility] Comment on above: Performed By: #### C MP, ETOH, CBC #### [facility] [address] Serum or plasma albumin/glob ulin mass ratioOrdered By: Ranjan Brown on 06-17-2024 Albumin/Globulin [Mass ratio] 1.5 {ratio} Normal [facility] Comment on above: Performed By: #### C MP, ETOH, CBC #### [facility] [address] Albumin/Globulin [Mass ratio] Serum or plasma albumin/globulin mass ratio [facility] Serum or plasma anion gap de terminationOrdered By: Ranjan Brown on 06-17-2024 Anion gap [Moles/Vol] 12.8 mmol/L Normal 6.0-15.0 [facility] Comment on above: Performed By: #### C MP, ETOH, CBC #### [facility] [place] [facility] [address] Anion gap [Moles/Vol] Serum or plasma an ion gap determination 6.0-15.0 [facility] Serum or plasma high density lipoprotein (HDL) cholesterol measurementOrdered By: Yossi Marcial on 06-17-2024 Cholesterol in HDL [Mass/Vol] 40 mg/dL Normal 23-92 [facility] Comment on above: HDL CHOL ATP-III CLA SSIFICATION Cardiovascular RiskHDL > or equal to 60 mg/dL LOWHDL < 40 mg/dL HIGH Order Comment: AUNDREA Ro Comment USE BLOOD OBTAINED IN ED PLEASE Result Comment: HDL CHOL ATP-III CLASSIFICATION Cardiovascular Risk HDL > or equal to 60 mg/dL LOW HDL < 40 mg/dL HIGH Performed By: #### L IPID, TSH3 wRFLX, [id number] #### [facility] [place] [facility] [address] Serum or plasma total choles terol/high density lipoprotein (HDL) cholesterol mass ratOrdered By: Yossi Marcial on 06-17-2024 Cholesterol.total/Choles terol in HDL [Mass ratio] 5.2 {ratio} Normal <5.0 [facility] Comment on above: Order Comment: AUNDREA Ro Comment USE BLOOD OBTAINED IN ED PLEASE Performed By: #### L IPID, TSH3 wRFLX, [id number] #### [facility] [place] [facility] [address] Cholesterol.total/Choles terol in HDL [Mass ratio] Serum or plasma total cholesterol/high density lipoprotein (HDL) cholesterol mass rat <5.0 [facility] Sodium [Moles/volume] in Ser um or PlasmaOrdered By: Ranjan Brown on 06-17-2024 Sodium [Moles/Vol] 139 mmol/L Normal 136-145 [facility] Comment on above: Performed By: #### C MP, ETOH, CBC #### [facility] [place] [facility] [address] [place] [id number] [facility] Sodium [Moles/Vol] Sodium [Moles/volume ] in Serum or Plasma 136-145 [facility] Specific gravity Test strip (U) [Rel density]Ordered By: Ranjan Brown on 06-17-2024 Specific gravity (U) [Rel density] 1.010 1.001-1.030 [facility] Specific gravity (U) [Rel density] Specific gravity of Urine by Test strip 1.001-1.030 [facility] Thyroid Stim Hormone w/Rflxo n 06-17-2024 Thyroid Stim Hormone w/Rflx 1.64 u[iU]/mL Normal 0.45-5.33 [facility] Comment on above: Order Comment: AUNDREA Ro Comment USE BLOOD OBTAINED IN ED PLEASE Performed By: #### L IPID, TSH3 wRFLX, [id number] #### [facility] [place] [facility] [address] [place] [id number] [facility] Thyrotropin [Units/volume] i n Serum or PlasmaOrdered By: Yossi Marcial on 06-17-2024 TSH Qn 1.64 m[IU]/L 0.45-5.33 [facility] TSH Qn Thyrotropin [Units/volume] in Serum or Plasma 0.45-5.33 [facility] Triglyceride [Mass/volume] i n Serum or PlasmaOrdered By: Yossi Marcial on 06-17-2024 Triglyceride [Mass/Vol] 162 mg/dL High 0-149 [facility] Comment on above: TRIG ATP III CLASSIF ICATIONTRIG less than 150 mg/dL NormalTRIG 150-199 mg/dL Borderline highTRIG 200-500 mg/dL High TRIG greater than 500 mg/dL Very highStandard traceable to the Center for Disease Conrtrol and Prevention (CDC) test method. Triglyceride [Mass/Vol] Triglyceride [Mass/volume] in Serum or Plasma High 0-149 [facility] Comment on above: TRIG ATP III CLASSIF ICATIONTRIG less than 150 mg/dL NormalTRIG 150-199 mg/dL Borderline highTRIG 200-500 mg/dL High TRIG greater than 500 mg/dL Very highStandard traceable to the Center for Disease Conrtrol and Prevention (CDC) test method. Urea nitrogen [Mass/volume] in Serum or PlasmaOrdered By: Ranjan Brown on 06-17-2024 Urea nitrogen [Mass/Vol] 13 mg/dL Normal 04-02 [facility] Comment on above: Performed By: #### C MP, ETOH, CBC #### [facility] [place] [facility] [address] Urea nitrogen [Mass/Vol] Urea nitrogen [Mass/volume] in Serum or Plasma 04-02 [facility] Urine Cultureon 06-17-2024 Bacteria identified Cx Nom (U) <9,000 colonies/ml mixed bacterial skin contaminants 2 Days PERFORMED BY: [place] [address] PATHOLOGIST EXECUTIVE TEAM LEADER ELPIDIO DC M.D. Normal [facility] Comment on above: Performed By: #### A DDONUAPLUS, URDS, UHCG, CUU #### [facility] [place] [facility] [address] [place] [address] Urine appearanceOrdered By: Ranjan Brown on 06-17-2024 Appearance (U) Clear Normal Clear [facility] Comment on above: Order Comment: Name Collection Type:: Clean-Voided Midstream Performed By: #### A DDONUAPLUS, URDS, UHCG, CUU #### [facility] [place] [facility] [address] [place] [address] Urine cultureOrdered By: Krissy Brown on 06-17-2024 Bacteria identified Cx Nom (U) Urine culture [facility] Urobilinogen Test strip (U) [Mass/Vol]Ordered By: Ranajn Brown on 06-17-2024 Urobilinogen (U) [Mass/Vol] Normal mg/dL Normal [facility] Urobilinogen (U) [Mass/Vol] Urobilinogen [Mass/volume] in Urine by Test strip Normal [facility] Vitamin D 25 Hydroxy Totalon 06-17-2024 Vitamin D 25 Hydroxy Total 25.9 ng/mL Low 30-100 [facility] Comment on above: Order Comment: AUNDREA SUAZO Y Comment USE BLOOD OBTAINED IN ED PLEASE Result Comment: [place] MIN D STATUS 25(OH)VITAMIN D RANGE (ng/mL) Deficient <20 Insufficient 20 to <30 Sufficient 30 to 100 Reference: Elizabeth De Souza, Robert AAORN, et al. Evaluation,treatment, and prevention of vitamin D deficiency; an Endocrine Society clinical practice guideline. JCEM. 2010; 96(7):191-. PERFORMED BY: [address] [address] [facility] EXECUTIVE TEAM LEADER ELPIDIO DC M.D. Performed By: #### L IPID, TSH3 wRFLX, [id number] #### [address] [address] [facility] Vitamin D+Metabolites [Mass/ volume] in Serum or PlasmaOrdered By: Yossi Marcial on 06-17-2024 Vitamin D+Metabolites [Mass/Vol] 25.9 ng/mL Low 30-100 [facility] Comment on above: VITAMIN D STATUS 25( [place])VITAMIN D RANGE (ng/mL) Deficient <20 Insufficient 20 to <30Sufficient 30 to 100Reference: Elizabeth De Souza, Robert AARON, et al. Evaluation,treatment, and prevention of vitamin D deficiency; an Endocrine Society clinical practice guideline. JCEM. 2010; 96(7):191-. Vitamin D+Metabolites [Mass/Vol] Vitamin D+Metabolites [Mass/volume] in Serum or Plasma Low 30-100 [facility] Comment on above: VITAMIN D STATUS 25( [...] ] in Blood by Automated count 3.8-11.6 [facility] pH Test strip (U)Ordered By: Ranjan Brown on 06-17-2024 pH (U) pH of Urine by Test strip 5.0-9.0 [facility] pH of Urine by Test stripOrd ered By: Ranjan Brown on 06-17-2024 pH (U) 7.0 [pH] Normal 5.0-9.0 [facility] Comment on above: Order Comment: Name Collection Type:: Clean-Voided Midstream Performed By: #### A DDONUAPLUS, URDS, UHCG, CUU #### [facility] [address] CBC W Auto Differential pane l (Bld)on 04-27-2024 Basophils (Bld) [#/Vol] 0.01 10*3/uL [facility] Basophils/100 WBC (Bld) 0.2 % 0.0 - 2.0 % [facility] Eosinophils (Bld) [#/Vol] 0.02 10*3/uL [facility] Eosinophils/100 WBC (Bld) 0.4 % 0.0 - 6.0 % [facility] Erythrocyte distribution width (RBC) [Ratio] 12.8 % 11.5 - 14.5 % [facility] Hematocrit (Bld) [Volume fraction] 36.0 % 36.0 - 46.0 % [facility] Hemoglobin (Bld) [Mass/Vol] 11.8 g/dL Low 12.0 - 16.0 g/dL [facility] Immature granulocytes (Bld) [#/Vol] 0.01 10*3/uL [facility] Immature granulocytes/100 WBC (Bld) 0.2 % 0.0 - 0.9 % [facility] Comment on above: Immature Granulocyte Count (IG) includes promyelocytes, myelocytes and metamyelocytes but does not include bands. Percent differential counts (%) should be interpreted in the context of the absolute cell counts (cells/UL). Interpretation and review of laboratory results Abnormal [facility] Lymphocytes (Bld) [#/Vol] 1.05 10*3/uL Low [facility] Lymphocytes/100 WBC (Bld) 19.5 % 13.0 - 44.0 % [facility] MCH (RBC) [Entitic mass] 28.4 pg 26. 0 - 34.0 pg [facility] MCHC (RBC) [Mass/Vol] 32.8 g/dL 32.0 - 36.0 g/dL [facility] MCV (RBC) [Entitic vol] 87 fL 80 - 100 fL [facility] Monocytes (Bld) [#/Vol] 0.51 10*3/uL [facility] Monocytes/100 WBC (Bld) 9.5 % 2.0 - 10.0 % [facility] Neutrophils (Bld) [#/Vol] 3.79 10*3/uL [facility] Comment on above: Percent differential counts (%) should be interpreted in the context of the absolute cell counts (cells/uL). Neutrophils/100 WBC (Bld) 70.2 % 40.0 - 80.0 % [facility] Nucleated RBC/100 WBC (Bld) [Ratio] 0.0 % [facility] Platelets (Bld) [#/Vol] 190 10*3/uL [facility] RBC (Bld) [#/Vol] 4.15 10*6/uL [facility] WBC (Bld) [#/Vol] 5.4 10*3/uL [facility] Basophils (Bld) [#/Vol] 0.01 x10*3/uL Normal 0.00-0.[address] [facility] Comment on above: Performed By: #### 5 7021-8 #### YARIEL AVELAR ([id number]) [facility] ([facility]) [address] [place] [address] Basophils/100 WBC (Bld) 0.2 % Normal 0.0-2.0 [facility] Comment on above: Performed By: #### 5 7021-8 #### YARIEL AVELAR ([id number]) [facility] ([facility]) [address] [place] [address] Eosinophils (Bld) [#/Vol] 0.02 x10*3/uL Normal 0.00-0.[address] [facility] Comment on above: Performed By: #### 5 7021-8 #### YARIEL AVELAR ([id number]) [facility] ([facility]) [address] [place] [id number] Eosinophils/100 WBC (Bld) 0.4 % Normal 0.0-6.[address] [facility] Comment on above: Performed By: #### 5 7021-8 #### YARIEL AVELAR ([id number]) [facility] ([facility]) [address] [place] [address] Erythrocyte distribution width (RBC) [Ratio] 12.8 % Normal 11.5-14.[address] [facility] Comment on above: Performed By: #### 5 7021-8 #### YARIEL AVELAR ([id number]) [facility] ([facility]) [address] [place] [address] 88510 Hematocrit (Bld) [Volume fraction] 36.0 % Normal 36.0-46.[address] [facility] Comment on above: Performed By: #### 5 7021-8 #### YARIEL AVELAR ([id number]) [facility] ([facility]) [address] [place] [address] 07542 Hemoglobin (Bld) [Mass/Vol] 11.8 g/dL Low 12.0-16.[address] [facility] Comment on above: Performed By: #### 5 7021-8 #### YARIEL AVELAR ([id number]) [facility] ([facility]) [address] [place] [address] 46826 Immature granulocytes (Bld) [#/Vol] 0.01 x10*3/uL Normal 0.00-0.[address] [facility] Comment on above: Performed By: #### 5 7021-8 #### YARIEL AVELAR ([id number]) [facility] ([facility]) [address] [place] [address] 90922 Immature granulocytes/100 WBC (Bld) 0.2 % Normal 0.0-0.[address] [facility] Comment on above: Result Comment: Ayla ture Granulocyte Count (IG) includes promyelocytes, myelocytes and metamyelocytes but does not include bands. Percent differential counts (%) should be interpreted in the context of the absolute cell counts (cells/UL). Performed By: #### 5 7021-8 #### YARIEL AVELAR ([id number]) [facility] ([facility]) [address] [place] [address] Lymphocytes (Bld) [#/Vol] 1.05 x10*3/uL Low 1.20-4.[address] [facility] Comment on above: Performed By: #### 5 7021-8 #### YARIEL AVELAR ([id number]) [facility] ([facility]) [address] [place] [address] Lymphocytes/100 WBC (Bld) 19.5 % Normal 13.0-44.[address] [facility] Comment on above: Performed By: #### 5 7021-8 #### YARIEL AVELAR ([id number]) [facility] ([facility]) [address] [place] [address] 63302 MCH (RBC) [Entitic mass] 28.4 pg Normal 26.0-34.[address] [facility] Comment on above: Performed By: #### 5 7021-8 #### YARIEL AVELAR ([id number]) [facility] ([facility]) [address] [place] [address] 21716 MCHC (RBC) [Mass/Vol] 32.8 g/dL Normal 32.0-36.0 [facility] Comment on above: Performed By: #### 5 7021-8 #### YARIEL AVELAR ([id number]) [facility] ([facility]) [address] [place] [address] 13337 MCV (RBC) [Entitic vol] 87 fL Normal 80-100 [facility] Comment on above: Performed By: #### 5 7021-8 #### YARIEL AVELAR ([id number]) [facility] ([facility]) [address] [place] [address] 52086 Monocytes (Bld) [#/Vol] 0.51 x10*3/uL Normal 0.10-1.[address] [facility] Comment on above: Performed By: #### 5 7021-8 #### YARIEL AVELAR ([id number]) [facility] ([facility]) [address] [place] [address] 36307 Monocytes/100 WBC (Bld) 9.5 % Normal 2.0-10.0 [facility] Comment on above: Performed By: #### 5 7021-8 #### YARIEL AVELAR ([id number]) [facility] ([facility]) [address] [place] [address] 16320 Neutrophils (Bld) [#/Vol] 3.79 x10*3/uL Normal 1.20-7.[address] [facility] Comment on above: Result Comment: Perc ent differential counts (%) should be interpreted in the context of the absolute cell counts (cells/uL). Performed By: #### 5 7021-8 #### YARIEL AVELAR ([id number]) [facility] ([facility]) [address] [place] [address] 24131 Neutrophils/100 WBC (Bld) 70.2 % Normal 40.0-80.[address] [facility] Comment on above: Performed By: #### 5 7021-8 #### YARIEL AVELAR ([id number]) [facility] ([facility]) [address] [place] [address] 85701 Nucleated RBC/100 WBC (Bld) [Ratio] 0.0 /100 WBCs Normal 0.0-0.[address] [facility] Comment on above: Performed By: #### 5 7021-8 #### YARIEL AVELAR ([id number]) [facility] ([facility]) [address] [place] [address] 35268 Platelets (Bld) [#/Vol] 190 x10*3/uL Normal 150-[address] [facility] Comment on above: Performed By: #### 5 7021-8 #### YARIEL AVELAR ([id number]) [facility] ([facility]) [address] [place] [address] 44662 RBC (Bld) [#/Vol] 4.15 x10*6/uL Normal 4.00-5.20 [facility] Comment on above: Performed By: #### 5 7021-8 #### YARIEL AVELAR ([id number]) [facility] ([facility]) [address] [place] [address] WBC (Bld) [#/Vol] 5.4 x10*3/uL Normal 4.4-11.3 [facility] Comment on above: Performed By: #### 5 7021-8 #### YARIEL AVELAR ([id number]) [facility] ([facility]) [address] [place] [address] 78338 Comprehensive metabolic 2000 panelon 04-27-2024 Albumin BCP dye [Mass/Vol] 4.1 g/dL 3.4 - 5.0 g/dL [facility] ALP [Catalytic activity/Vol] 59 U/L 33 - 110 U/L [facility] ALT With P-5'-P [Catalytic activity/Vol] 44 U/L 7 - 45 U/L [facility] Comment on above: Patients treated wit h Sulfasalazine may generate falsely decreased results for ALT. Anion gap [Moles/Vol] 12 mmol/L 10 - 2 0 mmol/L [facility] AST With P-5'-P [Catalytic activity/Vol] 42 U/L High 9 - 39 U/L [facility] Bilirubin [Mass/Vol] 0.3 mg/dL 0.0 - 1 .2 mg/dL [facility] Calcium [Mass/Vol] 8.8 mg/dL 8.6 - 10. 3 mg/dL [facility] Chloride [Moles/Vol] 105 mmol/L 98 - 10 7 mmol/L [facility] CO2 [Moles/Vol] 25 mmol/L 21 - 32 mmol/L [facility] Creatinine [Mass/Vol] 0.59 mg/dL 0.50 - 1.05 mg/dL [facility] eGFR - PINF [facility] Comment on above: Calculations of radha mated GFR are performed using the 2020 CKD-EPI Study Refit equation without the race variable for the IDMS-Traceable creatinine methods. https://jasn.asnjournals.org/content//ASN.511 8357082 Glucose [Mass/Vol] 109 mg/dL High 74 - 99 mg/dL [facility] Interpretation and review of laboratory results Abnormal [facility] Potassium [Moles/Vol] 3.8 mmol/L 3.5 - 5.3 mmol/L [facility] Protein [Mass/Vol] 7.2 g/dL 6.4 - 8.2 g/dL [facility] Sodium [Moles/Vol] 138 mmol/L 136 - 145 mmol/L [facility] Urea nitrogen [Mass/Vol] 6 mg/dL 6 - 23 mg/dL [facility] Albumin BCP dye [Mass/Vol] 4.1 g/dL Normal 3.4-5.[address] [facility] Comment on above: Performed By: #### 2 4323-8 #### YARIEL AVELAR ([id number]) [facility] ([facility]) [address] [place] [address] 92008 ALP [Catalytic activity/Vol] 59 U/L Normal 33-[address] [facility] Comment on above: Performed By: #### 2 4323-8 #### YARIEL AVELAR ([id number]) [facility] ([facility]) [address] [place] [address] ALT With P-5'-P [Catalytic activity/Vol] 44 U/L Normal 7-45 [facility] Comment on above: Result Comment: Clari ents treated with Sulfasalazine may generate falsely decreased results for ALT. Performed By: #### 2 4323-8 #### YARIEL AVELAR ([id number]) [facility] ([facility]) [address] [place] [address] 69450 Anion gap [Moles/Vol] 12 mmol/L Normal 10-20 [facility] Comment on above: Performed By: #### 2 4323-8 #### YARIEL AVELAR ([id number]) [facility] ([facility]) [address] [place] [address] AST With P-5'-P [Catalytic activity/Vol] 42 U/L High 9-39 [facility] Comment on above: Performed By: #### 2 4323-8 #### YARIEL AVELAR ([id number]) [facility] ([facility]) [address] [place] [address] 44701 Bilirubin [Mass/Vol] 0.3 mg/dL Normal 0.0-1.2 [facility] Comment on above: Performed By: #### 2 4323-8 #### YARIEL AVELAR ([id number]) [facility] ([facility]) [address] [place] [address] 02202 Calcium [Mass/Vol] 8.8 mg/dL Normal 8.6-10.3 [facility] Comment on above: Performed By: #### 2 4323-8 #### YARIEL AVELAR ([id number]) [facility] ([facility]) [address] [place] [address] 79753 Chloride [Moles/Vol] 105 mmol/L Normal 98-107 [facility] Comment on above: Performed By: #### 2 4323-8 #### YARIEL AVELAR ([id number]) [facility] ([facility]) [address] [place] [address] 87425 CO2 [Moles/Vol] 25 mmol/L Normal 21-32 [facility] Comment on above: Performed By: #### 2 4323-8 #### YARIEL AVELAR ([id number]) [facility] ([facility]) [address] [place] [address] 62331 Creatinine [Mass/Vol] 0.59 mg/dL Normal 0.50-1.05 [facility] Comment on above: Performed By: #### 2 4323-8 #### YARIEL AVELAR ([id number]) [facility] ([facility]) [address] [place] [address] 47471 GFR/1.73 sq M.predicted MDRD (S/P/Bld) [Vol rate/Area] mL/min/{1.73_m2} Normal >[address] [facility] Comment on above: Result Comment: Calc ulations of estimated GFR are performed using the 2020 CKD-EPI Study Refit equation without the race variable for the IDMS-Traceable creatinine methods. https://jasn.asnjournals.org/content//ASN.533 6207758 Performed By: #### 2 4323-8 #### YARIEL AVELAR ([id number]) [facility] ([facility]) [address] [place] [address] 38422 Glucose [Mass/Vol] 109 mg/dL High 74-99 [facility] Comment on above: Performed By: #### 2 4323-8 #### YARIEL AVELAR ([id number]) [facility] ([facility]) [address] [place] [address] 40290 Potassium [Moles/Vol] 3.8 mmol/L Normal 3.5-5.3 [facility] Comment on above: Performed By: #### 2 4323-8 #### YARIEL AVELAR ([id number]) [facility] ([facility]) [address] [place] [address] 35430 Protein [Mass/Vol] 7.2 g/dL Normal 6.4-8.2 [facility] Comment on above: Performed By: #### 2 4323-8 #### YARIEL AVELAR ([id number]) [facility] ([facility]) [address] [place] [address] 21229 Sodium [Moles/Vol] 138 mmol/L Normal 136-145 [facility] Comment on above: Performed By: #### 2 4323-8 #### YARIEL AVELAR ([id number]) [facility] ([facility]) [address] [place] [address] Urea nitrogen [Mass/Vol] 6 mg/dL Normal 03-[address] [facility] Comment on above: Performed By: #### 2 4323-8 #### YARIEL AVELAR ([id number]) [facility] ([facility]) [address] [place] [address] 15270 ECG 12-LEADon 04-27-2024 ECG 12-LEAD Ventricular Rate 89 Atrial Rate 89 P-R Interval 112 QRS Duration 68 Q-T Interval 356 QTC Calculation(Bazett) 433 P Waverly 50 R Waverly 1 T Waverly -3 QRS Count 14 Q Onset 227 P Onset 171 P Offset 219 T Offset 405 QTC Fredericia 405 Diagnosis Normal sinus rhythm Septal infarct , age undetermined Abnormal ECG No previous ECGs available See ED provider note for full interpretation and clinical correlation Confirmed by Desiree Rojo ([id number]) on 05/01/2024 1:20:42 PM Normal [facility] Lipaseon 04-27-2024 Lipase [Catalytic activity/Vol] 13 U/L 9 - 82 U/L [facility] Comment on above: D-powigp-n-benzoquin one imine (metabolite of Acetaminophen)will generate erroneously low results in samples for patients that have taken toxic doses of acetaminophen. Lipase [Catalytic activity/V ol]on 04-27-2024 Interpretation and review of laboratory results Normal [facility] Venipuncture immediately after or during the administration of Metamizole may lead to falsely low results. Testing should be performed immediately prior to Metamizole dosing. [facility] SARS coronavirus 2 RNAon SARS-CoV-2 (COVID-19) RNA LAURA+probe Ql (Resp) Detected Abnormal Not Detected [facility] Comment on above: Order Comment: This [...] and has been validated for use at [facility]. Negative results do not preclude COVID-19 infections and should not be used as the sole basis for diagnosis, treatment, or other management decisions. Performed By: #### 9 4500-6 #### YARIEL AVELAR ([id number]) [facility] ([facility]) [address] [place] [address] 67484 SARS-CoV-2 (COVID-19) RNA NA A+probe Ql (Resp)on 04-27-2024 Interpretation and review of laboratory results Abnormal [facility] This assay has received FDA Emergency Use [...] and has been validated for use at [facility]. Negative results do not preclude COVID-19 infections and should not be used as the sole basis for diagnosis, treatment, or other management decisions. [facility] Sars-CoV-2 PCRon 04-27-2024 SARS-CoV-2 (COVID-19) RNA LAURA+probe Ql (Resp) Detected Abnormal Not Detected [facility] Triacylglycerol lipaseon Lipase [Catalytic activity/Vol] 13 U/L Normal 9-[address] [facility] Comment on above: Order Comment: Venip uncture immediately after or during the administration of Metamizole may lead to falsely low results. Testing should be performed immediately prior to Metamizole dosing. Result Comment: N-ac csgl-l-blfjacppxxxn imine (metabolite of Acetaminophen)will generate erroneously low results in samples for patients that have taken toxic doses of acetaminophen. Performed By: #### 3 040-3 #### YARIEL AVELAR ([id number]) [facility] ([facility]) [address] [place] [address] Tropinin I.cardiac panel Hig h sensitivity methodon 04-27-2024 Interpretation and review of laboratory results Normal [facility] Less than 99th percentile of normal range [...] performed using a different testing methodology at [facility] than at other [facility]. Direct result comparisons should only be made within the same method. [facility] Troponin I, High Sensitivity on 04-27-2024 Tropinin I.cardiac panel High sensitivity method 3 ng/L 0 - 13 ng/L [facility] Troponin I.cardiac panelon 0 04-27-2024 Tropinin I.cardiac panel High sensitivity method 3 ng/L Normal 0-13 [facility] Comment on above: Order Comment: Less [...] performed using a different testing methodology at [facility] than at other system hospitals. Direct result comparisons should only be made within the same method. Performed By: #### 8 9577-1 #### YARIEL AVELAR ([id number]) [facility] ([facility]) [address] [place] [address] 34399 XR Chest Single viewon 04-27 No radiographic evidence of acute cardiopulmonary pathology. MACRO: None. Signed by: Stephen Canseco 04/27/2024 1:15 AM Dictation workstation: [id number] [facility] Interpreted By: Stephen Canseco, STUDY: XR CHEST 1 VIEW; 04/27/2024 12:27 am INDICATION: Signs/Symptoms:sob. COMPARISON: None. ACCESSION NUMBER(S): [id number] ORDERING CLINICIAN: FRANSISCA MENDEZ FINDINGS: CARDIOMEDIASTINAL SILHOUETTE: Cardiomediastinal silhouette is normal in size and configuration. LUNGS: No pulmonary consolidation, pleural effusion or pneumothorax. ABDOMEN: No remarkable upper abdominal findings. BONES: No acute osseous abnormality. MMODAL Stephen Canseco MD - 04/27/2024 Interpreted By: Stephen Canseco, STUDY: XR CHEST 1 VIEW; 04/27/2024 12:27 am INDICATION: Signs/Symptoms:sob. COMPARISON: None. ACCESSION NUMBER(S): [id number] ORDERING CLINICIAN: FRANSISCA MENDEZ FINDINGS: CARDIOMEDIASTINAL SILHOUETTE: Cardiomediastinal silhouette is normal in size and configuration. LUNGS: No pulmonary consolidation, pleural effusion or pneumothorax. ABDOMEN: No remarkable upper abdominal findings. BONES: No acute osseous abnormality. IMPRESSION: No radiographic evidence of acute cardiopulmonary pathology. MACRO: None. Signed by: Stephen Canseco 04/27/2024 1:15 AM Dictation workstation: [id number] [facility] Work Phone: Radiology Study observation (narrative) [facility] Work Phone: XR Chest Single viewOrdered By: Stephen Canseco on 04-27-2024 [facility] Work Phone: XR CHEST 1 VIEWon 04-26-2024 XR CHEST 1 VIEW Interpreted By: Stephen Canseco, STUDY: XR CHEST 1 VIEW; 04/27/2024 12:27 am INDICATION: Signs/Symptoms:sob. COMPARISON: None. ACCESSION NUMBER(S): [id number] ORDERING CLINICIAN: FRANSISCA MENDEZ FINDINGS: CARDIOMEDIASTINAL SILHOUETTE: Cardiomediastinal silhouette is normal in size and configuration. LUNGS: No pulmonary consolidation, pleural effusion or pneumothorax. ABDOMEN: No remarkable upper abdominal findings. BONES: No acute osseous abnormality. IMPRESSION: No radiographic evidence of acute cardiopulmonary pathology. MACRO: None. Signed by: Stephen Canseco 04/27/2024 1:15 AM Dictation workstation: [id number] [facility] SARS-CoV-2 (COVID-19) RNA NA A+probe Ql (Resp)on 08-28-2022 SARS-CoV-2 (COVID-19) RNA LAURA+probe Ql (Unsp spec) Positive [employer] Other Albumin [Mass/volume] in Ser um or PlasmaOrdered By: Ayah Willingham on 02-13-2022 Albumin [Mass/Vol] 4.0 g/dL 3.2-5.5 [facility] Basophils Auto (Bld) [#/Vol] Ordered By: Ayah Willingham on 02-13-2022 Basophils (Bld) [#/Vol] 0.0 10*3/uL 0.0-0.2 [facility] Basophils/100 WBC Auto (Bld) Ordered By: Ayah Willingham on 02-13-2022 Basophils/100 WBC (Bld) 0.3 % . [facility] Blood hemoglobin measurement (mass/volume)Ordered By: Ayah Willingham on 02-13-2022 Hemoglobin (Bld) [Mass/Vol] 12.3 g/dL 11.8-15.4 [facility] Blood leukocytes automated c ount (number/volume)Ordered By: Ayah Willingham on 02-13-2022 WBC (Bld) [#/Vol] 5.2 10*3/uL 4.5-11.0 [facility] Cholesterol [Mass/volume] in Serum or PlasmaOrdered By: Ayah Willingham on 02-13-2022 Cholesterol [Mass/Vol] 209 mg/dL 140-200 [facility] Comment on above: Chol less than 200 m g/dl low risk Chol 201-239 mg/dl borderline risk Chol 240 mg/dl and greater high risk Cholesterol in LDL Calc [Mas s/Vol]Ordered By: Ayah Willingham on 02-13-2022 Cholesterol in LDL [Mass/Vol] 149 mg/dL 0-100 [facility] Comment on above: LDL ATP III CLASSIFI CATION LDL less than 100 mg/dL Optimal LDL 100-129 mg/dL Near or above optimal LDL 130-159 mg/dL Borderline high LDL 160-189 mg/dL High LDL greater than 189 mg/dL Very high Cholesterol in VLDL Calc [Ma ss/Vol]Ordered By: Ayah Willingham on 02-13-2022 Cholesterol in VLDL [Mass/Vol] 17 mg/dL [facility] Creatinine and Glomerular fi ltration rate.predicted panel (S/P/Bld)Ordered By: Ayah Willingham on 02-13-2022 Creatinine [Mass/Vol] 0.63 mg/dL 0.44-1.03 [facility] Eosinophils Auto (Bld) [#/Vo l]Ordered By: Ayah Willingham on 02-13-2022 Eosinophils (Bld) [#/Vol] 0.1 10*3/uL 0.0-0.45 [facility] Eosinophils/100 WBC Auto (Bl d)Ordered By: Ayah Willingham on 02-13-2022 Eosinophils/100 WBC (Bld) 1.3 % . [facility] Erythrocyte distribution wid th Auto (RBC) [Ratio]Ordered By: Ayah Willingham on 02-13-2022 Erythrocyte distribution width (RBC) [Ratio] 13.6 % 11.9-15.3 [facility] Estimated glomerular filtrat ion rate (GFR) non- AmericanOrdered By: Ayah Willingham on 02-13-2022 GFR/1.73 sq M.predicted among non-blacks MDRD (S/P/Bld) [Vol rate/Area] > 60 mL/Min [facility] Globulin Calc (S) [Mass/Vol] Ordered By: Ayah Willingham on 02-13-2022 Globulin (S) [Mass/Vol] 3.1 g/dL [facility] Hematocrit Auto (Bld) [Volum e fraction]Ordered By: Ayah Willingham on 02-13-2022 Hematocrit (Bld) [Volume fraction] 36.7 % 34.0-46.4 [facility] Laboratory - Hematology and Cell countsOrdered By: Ayah Willingham on 02-13-2022 Nucleated RBC/100 WBC (Bld) [Ratio] 0.0 % 0-0.5 [facility] Lymphocytes Auto (Bld) [#/Vo l]Ordered By: Ayah Willingham on 02-13-2022 Lymphocytes (Bld) [#/Vol] 1.7 10*3/uL 1.00-4.8 [facility] Lymphocytes/100 WBC Auto (Bl d)Ordered By: Ayah Willingham on 02-13-2022 Lymphocytes/100 WBC (Bld) 32.9 % . [facility] MCH Auto (RBC) [Entitic mass ]Ordered By: Ayah Willingham on 02-13-2022 MCH (RBC) [Entitic mass] 29.2 pg 24.7-34.3 [facility] MCHC Auto (RBC) [Mass/Vol]Or dered By: Ayah Willingham on 02-13-2022 MCHC (RBC) [Mass/Vol] 33.5 g/dL 32.0-35.0 [facility] MCV Auto (RBC) [Entitic vol] Ordered By: Ayah Willingham on 02-13-2022 MCV (RBC) [Entitic vol] 87.3 fL 80-100 [facility] Monocytes Auto (Bld) [#/Vol] Ordered By: Ayah Willingham on 02-13-2022 Monocytes (Bld) [#/Vol] 0.3 10*3/uL 0.0-0.8 [facility] Monocytes/100 WBC Auto (Bld) Ordered By: Ayah Willingham on 02-13-2022 Monocytes/100 WBC (Bld) 6.2 % . [facility] Neutrophils Auto (Bld) [#/Vo l]Ordered By: Ayah Willingham on 02-13-2022 Neutrophils (Bld) [#/Vol] 3.1 10*3/uL 1.8-7.7 [facility] Neutrophils/100 WBC Auto (Bl d)Ordered By: Ayah Willingham on 02-13-2022 Neutrophils/100 WBC (Bld) 59.3 % . [facility] No Panel InformationOrdered By: Ayah Willingham on 02-13-2022 Estimated GFR () > 60 mL/Min [facility] Comment on above: GFR estimated refere nce range: According to KDOQI guidelines, <60 ml/min/1.73m2 is sufficient to diagnose a patient with chronic kidney disease. Pharmacy Creatinine Clearance (Chem N/A [facility] Platelet mean volume Auto (B ld) [Entitic vol]Ordered By: Ayah Willingham on 02-13-2022 Platelet mean volume (Bld) [Entitic vol] 8.5 fL 6.3-10.7 [facility] Platelets Auto (Bld) [#/Vol] Ordered By: Ayah Willingham on 02-13-2022 Platelets (Bld) [#/Vol] 219 10*3/uL 150-450 [facility] Protein [Mass/volume] in Ser um or PlasmaOrdered By: Ayah Willingham on 02-13-2022 Protein [Mass/Vol] 7.1 g/dL 6.1-7.9 [facility] RBC Auto (Bld) [#/Vol]Ordere d By: Ayah Willingham on 02-13-2022 RBC (Bld) [#/Vol] 4.20 10*6/uL 3.60-5.00 [place] Serum or plasma alanine domingo otransferase measurement without P-5'-P (enzymatic activiOrdered By: Ayah Willingham on 02-13-2022 ALT No additional P-5'-P [Catalytic activity/Vol] 14 U/L 10-60 [facility] Serum or plasma albumin/glob ulin mass ratioOrdered By: Ayah Willingham on 02-13-2022 Albumin/Globulin [Mass ratio] 1.3 {ratio} [facility] Serum or plasma alkaline daylin sphatase measurement (enzymatic activity/volume)Ordered By: Ayah Willingham on 02-13-2022 ALP [Catalytic activity/Vol] 39 U/L 32-92 [facility] Serum or plasma aspartate am inotransferase measurement (enzymatic activity/volume)Ordered By: Ayah Willingham on 02-13-2022 AST [Catalytic activity/Vol] 16 U/L 10-42 [facility] Serum or plasma calcium jerardo urement (mass/volume)Ordered By: Ayah Willingham on 02-13-2022 Calcium [Mass/Vol] 9.1 mg/dL 8.2-10.2 [facility] Serum or plasma chloride harika surement (moles/volume)Ordered By: Ayah Willingham on 02-13-2022 Chloride [Moles/Vol] 103 mmol/L 95-114 [facility] Serum or plasma glucose jerardo urement (mass/volume)Ordered By: Ayah Willingham on 02-13-2022 Glucose [Mass/Vol] 102 mg/dL 70-100 [facility] Comment on above: ADA recommended refe rence range Random Glucose Reference Range is dependent on time and content of last meal. Glucose of more than 200 mg/dL in a nonstressed, ambulatory subject supports the diagnosis of Diabetes Mellitus. Serum or plasma high density lipoprotein (HDL) cholesterol measurementOrdered By: Ayah Willingham on 02-13-2022 Cholesterol in HDL [Mass/Vol] 43 mg/dL 35-85 [facility] Comment on above: HDL CHOL ATP-III CLA SSIFICATION Cardiovascular Risk HDL > or equal to 60 mg/dL LOW HDL < 40 mg/dL HIGH Serum or plasma potassium me asurement (moles/volume)Ordered By: Ayah Willingham on 02-13-2022 Potassium [Moles/Vol] 4.0 mmol/L 3.5-5.1 [facility] Serum or plasma sodium measu rement (moles/volume)Ordered By: Ayah Willingham on 02-13-2022 Sodium [Moles/Vol] 139 mmol/L 136-146 [facility] Serum or plasma total biliru bin measurement (mass/volume)Ordered By: Ayah Willingham on 02-13-2022 Bilirubin [Mass/Vol] 0.7 mg/dL 0.3-1.2 [facility] Serum or plasma total carbon dioxide measurement (moles/volume)Ordered By: Ayah Willingham on 02-13-2022 CO2 [Moles/Vol] 26.7 mmol/L 22.0-30.0 [facility] Serum or plasma total choles terol/high density lipoprotein (HDL) cholesterol mass ratOrdered By: Ayah Willingham on 02-13-2022 Cholesterol.total/Choles terol in HDL [Mass ratio] 4.9 {ratio} <5.0 [facility] Serum or plasma urea nitroge n measurement (mass/volume)Ordered By: Ayah Willingham on 02-13-2022 Urea nitrogen [Mass/Vol] 10 mg/dL 06-01 [facility] TSH DL <= 0.005 mIU/L QnOrde red By: Ayah Willingham on 02-13-2022 TSH Qn 2.25 m[IU]/L 0.45-5.33 [facility] Thyroxine (T4) free [Mass/vo lume] in Serum or PlasmaOrdered By: Ayah Willingham on 02-13-2022 Free T4 [Mass/Vol] 0.83 ng/dL 0.61-1.12 [facility] Triglyceride [Mass/volume] i n Serum or PlasmaOrdered By: Ayah Willingham on 02-13-2022 Triglyceride [Mass/Vol] 86 mg/dL 35-149 [facility] Comment on above: TRIG ATP III CLASSIF ICATION TRIG less than 150 mg/dL Normal TRIG 150-199 mg/dL Borderline high TRIG 200-500 mg/dL High TRIG greater than 500 mg/dL Very high Standard traceable to the Center for Disease Conrtrol and Prevention (CDC) test method. Vital Signs Date Time Vital Sign Value Performing Clinician Facility 06-20-2024 07:30-0400 Body temperature 98.2 [degF] Services [facility] Work Phone: [facility] 06-20-2024 07:30-0400 Diastolic blood pressure 79 mm[Hg] Services [facility] Work Phone: [facility] 06-20-2024 07:30-0400 Heart rate 72 /min [facility] Work Phone: [facility] 06-20-2024 07:30-0400 Respiratory rate 17 /min [facility] Work Phone: [facility] 06-20-2024 07:30-0400 SaO2% (BldA) [Mass fraction] 96 % [facility] Work Phone: [facility] 06-20-2024 07:30-0400 Systolic blood pressure 119 mm[Hg] [facility] Work Phone: [facility] 06-18-2024 14:13-0400 Body height 157.48 cm [facility] Work Phone: [facility] 06-17-2024 20:15-0400 Body weight 55.33 kg [facility] Work Phone: [facility] 06-17-2024 19:41-0400 Diastolic blood pressure 82 mm[Hg] [facility] Work Phone: [facility] 06-17-2024 19:41-0400 Heart rate 82 /min [facility] Work Phone: [facility] 06-17-2024 19:41-0400 Respiratory rate 16 /min [facility] Work Phone: [facility] 06-17-2024 19:41-0400 SaO2% (BldA) [Mass fraction] 97 % [facility] Work Phone: [facility] 06-17-2024 19:41-0400 Systolic blood pressure 159 mm[Hg] [facility] Work Phone: [facility] 06-17-2024 18:28-0400 Body height 157.48 cm [facility] Work Phone: [facility] 06-17-2024 18:28-0400 Body weight 56 kg [facility] Work Phone: [facility] 06-17-2024 18:20-0400 Body temperature 98 [degF] Services [facility] Work Phone: [facility] 04-27-2024 02:52-0400 Diastolic blood pressure 79 mm[Hg] Fransisca Mendez MD Work Phone: [facility] 04-27-2024 02:52-0400 Heart rate 85 /min rFansisca Mendez MD Work Phone: [facility] 04-27-2024 02:52-0400 Respiratory rate 16 /min Fransisca Mendez MD Work Phone: [facility] 04-27-2024 02:52-0400 SaO2% (BldA) [Mass fraction] 96 % Fransisca Mendez MD Work Phone: [facility] 04-27-2024 02:52-0400 Systolic blood pressure 137 mm[Hg] Fransisca Mendez MD Work Phone: [facility] 04-27-2024 02:12-0400 Body temperature 98.8 [degF] Fransisca Mendez MD Work Phone: [facility] 04-26-2024 23:50-0400 Body height 157.5 cm Fransisca Mendez MD Work Phone: [facility] 04-26-2024 23:50-0400 Body mass index (BMI) [Ratio] 21.95 kg/m2 Fransisca Mendez MD Work Phone: [facility] 04-26-2024 23:50-0400 Body weight 54.43 kg Fransisca Mendez MD Work Phone: [facility] 04-04-2024 19:41-0400 Body height 154.94 cm Services [facility] Work Phone: [facility] 04-04-2024 19:41-0400 Body temperature 97.5 [degF] Services [facility] Work Phone: [facility] 04-04-2024 19:41-0400 Body weight 56.35 kg [facility] Work Phone: [facility] 04-04-2024 19:41-0400 Diastolic blood pressure 78 mm[Hg] [facility] Work Phone: [facility] 04-04-2024 19:41-0400 Heart rate 90 /min Services [facility] Work Phone: [facility] 04-04-2024 19:41-0400 Respiratory rate 18 /min Services [facility] Work Phone: [facility] 04-04-2024 19:41-0400 SaO2% (BldA) [Mass fraction] 97 % Services [facility] Work Phone: [facility] 04-04-2024 19:41-0400 Systolic blood pressure 115 mm[Hg] [facility] Work Phone: [facility] 04-10-2022 10:19-0400 Body height 160.02 cm Services [facility] Work Phone: [facility] 04-10-2022 10:19-0400 Body weight 53.52 kg Services [facility] Work Phone: [facility] Encounters Encounter Date Encounter Type Care Provider Facility Start: 04-08-2025 ambulatory Services [facility] Facility:[facility] Start: 09-11-2024 Registered Recurring Ranjan ruiz DO Work Phone: [facility] Start: 09-07-2024 End: 09-07-2024 ambulatory Ranjan Brown DO Work Phone: [facility] Work Phone: Start: 09-07-2024 End: 09-07-2024 Patient encounter procedure Ranjan Brown DO Work Phone: [facility] [address] Work Phone: Start: 08-24-2024 End: 08-24-2024 ambulatory Melvi Briceño Facility:[facility] Start: 08-24-2024 End: 08-24-2024 Discharged Recurring Ranjan Brown DO Work Phone: [facility]-Physical Therapy [place] Start: 08-13-2024 End: 08-13-2024 ambulatory Melvi Briceño Facility:[facility] Start: 08-13-2024 End: 08-13-2024 Patient encounter procedure Ranjan Brown DO Work Phone: [facility] [address] Work Phone: Start: 07-02-2024 Registered Recurring [facility] Work Phone: [facility]-Physical Therapy [place] Start: 06-30-2024 Registered Recurring [facility] Work Phone: [facility] Start: 06-29-2024 End: 06-29-2024 ambulatory [facility] Work Phone: [facility] Work Phone: Start: 06-29-2024 End: 06-29-2024 Patient encounter procedure [facility] Work Phone: [facility] [address] Work Phone: Start: 06-18-2024 Non-patient / Non-visit Servic es [facility] Work Phone: [facility] Work Phone: Start: 06-17-2024 End: 06-20-2024 Evaluation and management of inpatient Services [facility] Work Phone: [facility] Work Phone: Start: 06-17-2024 Registered Recurring Services [facility] Work Phone: [facility] Start: 06-15-2024 Registered Recurring [facility] Work Phone: [facility]-Physical Therapy [place] Start: 06-09-2024 Registered Recurring [facility] Work Phone: [facility] Start: 06-08-2024 Registered Recurring [facility] Work Phone: [facility]Physical Therapy [place] Start: 06-04-2024 End: 06-04-2024 ambulatory [facility] Work Phone: [facility] Work Phone: Start: 06-04-2024 End: 06-04-2024 Patient encounter procedure [facility] Work Phone: [facility] [address] Work Phone: Start: 05-15-2024 Registered Recurring [facility] Work Phone: [facility] Start: 05-08-2024 End: 05-08-2024 ambulatory [facility] Work Phone: [facility] Work Phone: Start: 05-08-2024 End: 05-08-2024 Patient encounter procedure [facility] Work Phone: [facility] [address] Work Phone: Start: 04-27-2024 End: 04-27-2024 Emergency department patient visit FRANSISCA [facility] Work Phone: Comment on above: COVID (Primary Dx) Start: 04-17-2024 Registered Recurring [facility] Work Phone: [facility] Start: 04-10-2024 End: 04-10-2024 ambulatory [facility] Work Phone: [facility] Work Phone: Start: 04-10-2024 End: 04-10-2024 Patient encounter procedure [facility] Work Phone: [facility] [address] Work Phone: Start: 04-04-2024 End: 04-04-2024 Emergency department patient visit [facility] Work Phone: [facility]-Emergency Room Work Phone: Start: 03-19-2024 Registered Recurring [facility] Work Phone: [facility] Start: 01-11-2024 End: 01-11-2024 ambulatory [facility] Work Phone: [facility] Work Phone: Start: 01-11-2024 End: 01-11-2024 Patient encounter procedure [facility] Work Phone: [facility] Work Phone: Start: 08-28-2022 End: 08-28-2022 ambulatory Alissa Lopez Other [place] [employer] Other Start: 08-28-2022 Nursing evaluation o f patient and report Alissa Lopez [facility] Start: 06-26-2022 End: 06-26-2022 ambulatory [facility] Work Phone: [facility] Work Phone: Start: 06-26-2022 End: 06-26-2022 Patient encounter procedure [facility] Work Phone: [facility]-Covid Vaccine Off Site Start: 04-10-2022 End: 04-10-2022 Patient encounter procedure [facility] Work Phone: [facility]-MRI [place] Start: 04-02-2022 End: 04-02-2022 Patient encounter procedure [facility] Work Phone: [facility]-Ultrasound [place] Start: 03-16-2022 End: 03-16-2022 Patient encounter procedure [facility] Work Phone: [facility]-CT Scan [place] Start: 02-13-2022 End: 02-13-2022 Patient encounter procedure [facility] Work Phone: [facility]-Lab [place] Procedures Date Procedure Procedure Detail Performing Clinician Start: 06-17-2024 Bacteria identified in Urine by Culture [facility] Work Phone: Start: 06-17-2024 Urine culture Ranjan Boothe nson DO Work Phone: Start: 04-27-2024 Sars-cov-2 detection by dna/rna Fransisca Mendez MD Work Phone: Start: 04-27-2024 Comprehensive metabo lic panel Fransisca Mendez MD Work Phone: Start: 04-27-2024 Radiologic exam ches t single view Fransisca Mendez MD Work Phone: Start: 04-04-2024 X-ray of lumbar spin e, four or more views [facility] [employer] Phone: Start: 01-11-2024 Screening mammograph y of bilateral breasts [facility] [employer] Phone: Start: 04-10-2022 MRI of pelvis with contrast [facility] [employer] Phone: Start: 04-02-2022 Ultrasonography of liver [facility] [employer] Phone: Start: 03-16-2022 Computed tomography of abdomen and pelvis with contrast [facility] [employer] Phone: Start: 07-12-2020 Mammography Fransisca tamayo MD Work Phone: Plan of Treatment Date Care Activity Detail Author Start: 06-20-2024 [facility] Start: 06-17-2024 Hospital admission [facility] Start: 06-17-2024 [facility] Start: 06-17-2024 Urine culture [facility] Start: 06-17-2024 Bacteria identified in Urine by Culture Urine Culture [facility] Start: 05-10-2024 Influenza vaccination Influenz a Vaccine (#1) [facility] Start: 04-04-2024 X-ray of lumbar spin e, four or more views XR lumbar spine min 4V* [facility] Start: 04-04-2024 XR Lumbar spine GE 4 Views [facility] Start: 01-11-2024 Screening mammograph y of bilateral breasts MM screening mammo BI w/CAD [facility] Start: 05-10-2023 COVID-19 Vaccine ( season) COVID-19 Vaccine ( season) [facility] Start: 04-10-2022 MRI of pelvis with contrast MR pelvis wo/w con [facility] Start: 04-10-2022 End: 04-10-2022 Patient encounter procedure Departed Clinical [facility]-MRI [facility] [place] Start: 07-12-2021 Screening for malign ant neoplasm of breast Mammogram [facility] Start: 2020 Zoster Vaccines (1 of 2) Zoste r Vaccines (1 of 2) [facility] Start: 1992 DTaP/Tdap/Td Vaccine s (1 - Tdap) DTaP/Tdap/Td Vaccines (1 - Tdap) [facility] Start: 1991 Screening for malign ant neoplasm of cervix [facility] Start: 1989 Hepatitis B Vaccines (1 of 3 - 19+ 3-dose series) Hepatitis B Vaccines (1 of 3 - 19+ 3-dose series) [facility] Start: 1988 Hepatitis C screening Hepatitis C [facility] Start: 1971 MMR Vaccines (1 of 1 - Standard series) MMR Vaccines (1 of 1 - Standard series) [facility] Start: 1970 HIV screening HIV Screening [facility] Start: 1970 Lipid panel Lipid Panel [facility] Start: 1970 Screening for malign ant neoplasm of colon [facility] Start: 1970 Yearly Adult Physical Yearly Adult P hysical [facility] End: 04-26-2024 ECG 12 lead [facility] Service Area Work Phone: Comment on above: Once for 1 Occurrenc es starting 04/26/2024 until 04/26/2024 Patient Education [facility] Work Phone: Patient referral [facility] Work Phone: Immunizations Immunization Date Immunization Notes Care Provider Fa cili 07-04-2023 influenza virus vaccine, unspecified formulation Fransisca Mendez MD Work Phone: [facility] Work Phone: 06-26-2022 COVID-19 mRNA Bivale nt Booster (Moderna) [facility] Work Phone: [facility] 07-04-2021 COVID-19 mRNA-1273 (Moderna) [facility] Work Phone: [facility] 09-28-2020 COVID-19 mRNA-1273 (Moderna) [facility] Work Phone: [facility] 08-31-2020 COVID-19 mRNA-1273 (Moderna) [facility] Work Phone: [facility] Payers Date Payer Category Payer Unknown [id number] 1 2024 Worker's Compensation [id number] 2023 Unknown [facility] [id number] 2023-Present [address] [place] [address] [id number] 2023 Unknown [id number] 2022 Self-pay [id number] 1970 Unknown [id number] Medicaid Medicaid [id number] Medicaid [employer] [id number] Unknown [id number] Unknown [id number] 31 Unknown [id number] 31 Unknown [id number] 31 Unknown [id number] 31 Unknown [id number] 31 Unknown [id number] 31 Unknown [id number] 31 Unknown [id number] 31 Social History Date Type Detail Facility Start: 10-19-2019 End: 06-18-2024 Tobacco smoking status UTIS Never smoked tobacco (finding) [facility] Start: 1970 Sex Assigned At Female [facility] Sex Assigned At [employer] Other Tobacco smoking status UTIS Tobacco smoking consumption unknown [facility] Work Phone: Start: 1970 Sex assigned at Not on file [facility] Work Phone: Start: 04-16-2024 End: 04-27-2024 Exposure to SARS-CoV-2 (event) Yes [facility] Work Phone: Start: 09-12-2024 Sex Female (finding) [facility] NEGATED: Highlighted row [facility] Goals Date Patient Goal Desired Activity /State Functional Status Date Assessment Result Facility 06-20-2024 Functional status Patient at Baseline [facility] Work Phone: Mental Status Date Assessment Result Facility 06-20-2024 Cognitive function Cognitive Sta tus Patient at Baseline [facility] Work Phone: Clinical Notes 08-28-2022 to 06-19-2024 Note Date & Type Note Facility 06-19-2024 Progress note Note Date/Time June 19, 2024 9:54am [facility] [address] [place] [address] Psychiatry Progress Note Signed Patient: Patito Cristobal MR#: [id number] : 1970 Acct:[id number] Age/Sex: 53 / F Adm Date: 4 Loc: Room: [address] [place] [address] Type : ADM IN Attending Dr: Yossi Marcial MD Copies to: ~ Date of Service: 06/19/2024 Subjective Subjective Narrative: Mrs. 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 She is on her second day in the ching, and says she is feeling good today. She seems less anxious and is talking slower and in a more comprehensible way. She says her depression is a 5out of 10, anxiety 5 out of 10 and denies suicidal or homicidal ideation. She does not feel like her college or university business manager wants to harm her here today, [...] discharge. Documented By: Yossi Marcial MD [id number] Signed By: <Electronically signed by Yossi Marcial MD> 06/19/[address] [place] [address] Work Phone: 1(202) 664-877710-10-2024 History and physical note Author Yossi cole [facility] June 18, 2024 11:48am Note Date/Time June 18, 2024 1 0:47am [facility] [address] [place] [address] Psychiatry H&P Signed Patient: Patito Cristobal MR#: [id number] : 1970 Acct:[id number] Age/Sex: 53 / F Adm Date: 4 Loc: 1S Room: [address] [place] [address] Type: ADM IN Attending Dr: Yossi Marcial MD Copies to: MD Marli Sharp NO FAMILY PHYSICIAN~ Date of Service: 06/18/2024 HPI History of Present Illness History of present illness: Mrs. Gamboa is a 53-year-old female who presents for delusions and paranoid thoughts about her college or university business manager at work. She presented to the emergency department with these issues. Ms. renner speaks some Belgian, though to facilitate and ensure proper information, a entry level marketing assistant was used. Patient was personally seen by [...] disorganized information. She says she isworried her college or university business manager at work will harm her because she has not been working as hard recently due to her back strain and other issues. When asked what she doesfor work, she actually says she was terminated in May and has not been working there anymore. I tried to evaluate through the entry level marketing assistant if these werelegitimate concerns, could this previous [...] her mother, who unfortunately does not speak Belgian so we cannot obtain collateral from her. Past psych history: Anxiety depression Past hospitalizations: She endorses being hospitalized in 2012 in [place] for something similar. Past suicide attempts: Denies [...] it is linked to her back pain. Clinical Product Specialist could not give me more information. Cardiac: [...] be responding to internal stimuli. Insight: limited [facility] Medical History (Updated 06/18/24 @ 10:47 by [...] Appearance Clear Urine pH 7.0 Ur Specific [place] 1.010 Urine Protein Negative Urine Glucose (UA) [...] <Electronically signed by Marli Colvin> 06/18/24 1047 [facility] Work Phone: 1(281) 339-271310-09-2024 Evaluation note* Diagnosis Onset Date Resolution Status Admit Date Depression acute June 17, 2 024 7:18pm Mood disorder acute June 7:18pm Paranoid delusion acute June 17, 2024 7:18pm Pyuria acute June 17 024 7:18pm [facility] Work Phone: 1(556) 482-585608-18-2024 Emergency department Note* Fransisca Mendez MD - [...] of 04/27/24 0234 COVID No data recorded Homer Coma Scale Score: 15 (04/26/24 2340 : [...] specimens andhas been validated for use at [facility]. Negative results do not preclude COVID-19 infections [...] performed using a different testing methodology at [facility] than at other [facility]. Direct result comparisons should only be made [...] Stephen Canseco 04/27/2024 1:15 AM Dictation workstation: [id number] Medical Decision Making 53-year-old female presenting with [...] aVF. Procedure Procedures Fransisca Mendez MD 04/27/[address] [facility] Work Phone: 1(629) 155-909308-18-2024 Physician Emergency department Note* Fransisca Mendez MD [...] of 04/27/24 0234 COVID No data recorded Homer Coma Scale Score: 15 (04/26/24 2340 : [...] specimens andhas been validated for use at [facility]. Negative results do not preclude COVID-19 infections [...] performed using a different testing methodology at [facility] than [facility]. Direct result comparisons should only be [...] Stephen Canseco 04/27/2024 1:15 AM Dictation workstation: [id number] Medical Decision Making 53-year-old female presenting with [...] Procedure Procedures Fransisca Mendez MD 04/27/24 0235 [facility] Work Phone: 1(176) 727-732807-27-2024 Hospital Discharge instructions Additional Instructions Take the ibuprofen every 6 hours for pain take with food May apply 1-2 lidocaine patches over sorest areas daily May use ice or warm moist heat to sore area whichever helps the best Light duty for 1 week Follow-up with corporate health especially if your back is not getting better Return to the ER for more severe pain weakness in your legs unable to control your bladder or bowel or any [facility] Work Phone: 1(424) 804-469012-20-2022 Evaluation note* Encounter Date Diagnosis Assessment Notes Treatment Notes Treatment Clinical Notes Aug, Contact with and (suspected) exposure to other viral communicable diseases (ICD-10 - Z20.828) Aug, COVID-19 (ICD-10 - U07.1) [facility] Other Discharge summary Author Yossi cole [facility] June 20, 2024 10:56am Note Date/Time June 20, 2024 1 0:50am [facility] [address] [place] [address] Discharge Summary Signed Patient: Patito Cristobal MR#: [id number] : 1970 Acct:[id number] Age/Sex: 53 / F Adm Date: 4 Loc: Room: [address] [place] [address]: Yossi Marcial MD Copies to: Yossi Marcial MD NO FAMILY PHYSICIAN~ Providers Date of Discharge: 06/20/24 Discharging Provider: Yossi Marcial Primary Care Provider: PHYSICIAN NO FAMILY Discharge Diagnosis (1) Paranoid delusion: (2) Depression: Final Diagnosis Final Discharge Diagnosis: Major depressive disorder Summary Hospital Course Hospital course: Mrs. Cristobal is a 53-year-old female who presents for delusions and paranoid thoughts about her college or university business manager at work. She presented to the emergency department with these issues. Ms. renner speaks some Belgian, though to facilitate and ensure proper information, a entry level marketing assistant was used. Patient presents due to paranoid thoughts and concerns for psychosis. She was a difficult historian and gave somewhat disorganized information. She says she isworried her college or university business manager at work will harm her because she has not been working as hard recently due to her back strain and other issues. When asked what she doesfor work, she actually says she was terminated in May and has not been working there anymore. I tried to evaluate through the entry level marketing assistant if these werelegitimate concern. She can get [...] her mother, who unfortunately does not speak Belgian so we cannot obtain collateral from her. Past psych history: Anxiety depression Past hospitalizations: She endorses being hospitalized in 2013 in [place] for something similar. Past suicide attempts: Denies [...] it is linked to her back pain. Clinical Product Specialist could not give me more information. Cardiac: [...] is still fed threatened by her previous college or university business manager and previous coworkers, she said the thoughts are no longer intrusive. She said dimitris longer works there and she decided just to forget about them. She will find another job and will just not think about what ever had happened between her coworkers and her. She said she is not worried about her college or university business manager harming her, and it made no [...] Instructions: Important Contact Information You can call [facility] at [phone] any time day or night if you have emergent questions or question regarding discharge instructions. If at any time you are feeling an increase inyour psychiatric symptoms, call your physician or behavioral healthcare provider. If any time you have thoughts of harming yourself or others contact one of the following: Call (available 01/04) Crisis Text Line (available 01/04) text 4HOPE to [phone] [facility] Hope Line (available 8 a.m. Midnight) call [phone] ([phone]) Regular Diet No Activity Restrictions Instructions: Depression, Adult (DC), [facility] Behavioral Health DC Instructions, Know your Meds [...] for up to 12 hrs Follow Up: [facility], Urgent Care [Other] (See urgent care with [...] signed by Yossi Marcial MD> 06/20/24 1056 [facility] Work Phone: Evaluation noteNo assessment information available [facility] Work Phone: Evaluation note* Diagnosis Onset Date Resolution Status Depression acute Mood disorder acute Paranoid delusion acute Pyuria acute [facility] Work Phone: Evaluation note* Diagnosis COVID- Primary documented in this encounter [facility] Work Phone: History general Narrative - Reported* Type Description Date Medical History GERD Medical History constipation Surgical History No Surgical history information Hospitalization History 2012 [facility] Other Hospital Discharge instructions* Attachments The following attachments cannot be sent through Care Everywhere. * COVID-19 [facility] ([place] Chief Complaint and Reason for Visit Chief Complaint N91.2 R10.33 R10.32 R93.5 N96 N85.8 R10.2 R95.3 N85.8 R10.2 R93.5 Chief Complaint N85.8 R10.2 R95.3 N85.8 R10.2 R93.5 VACCINE Chief Complaint Screening Chief Complaint Screening back injury-[facility] Chief Complaint back injury-[facility] S39.012A Chief Complaint back injury-[facility] S39.012A S39.012A Chief Complaint back injury-[facility] S39.012A S39.012A S39.012A Low back muscle strain Chief Complaint back injury-[facility] S39.012A S39.012A S39.012A Low back muscle strain [facility] Chief Complaint back injury-[facility] S39.012A S39.012A S39.012A Low back muscle strain [facility] Reason for Visit Depression Mood disorder Paranoid delusion Pyuria Chief Complaint back injury-[facility] S39.012A S39.012A S39.012A [facility] Low back muscle strain Reason for Visit Depression Mood disorder Paranoid delusion Pyuria Chief Complaint Admit Date [facility] June 17, 2024 7: 18pm [facility] June 18, 2024 1 0:40am S39.012A June 29, 2024 1 0:00am S39.012A August 13, 2024 2 :00pm Low back muscle strain August 24 2:45pm [facility] F/U September 07, 2024 2:00pm September 11, [...] April 04, 2024 End: April 04, 2024 CHANA Calvin Emergency Provider Active Start: April 04, [...] January 11, 2024 End: January 11, 2024 Ayah luciano PROGRAM THERAPIST-C Attending Provider Active Start: January 11, 2024 [...] Attending Provider Active Start: July 02, 2024 Printed Circuit Boards Inspector Relationship Specialty Start Date End Date Generic Provider, [place] [address] PCP - General Lapeler 04/26/24 Team Status: Inactive Member Role Status Dates PHYSICIAN NO FAMILY Primary Care Provider Active Start: August 13, 2024 End: August 13, 2024 Melvi Briceño APRN Attending Provider Active Start: August 13, 2024 End: August 13, 2024 Team Status: Inactive Member Role Status Dates Services [facility] Primary Care Provider Active Start: August 24, [...] Active Member Role Status Dates Services [facility] Primary Care Provider Active Start: September 11, [...] section and content) DATE CREATED AUTHOR 05/01/2024 [facility] DATE CREATED AUTHOR AUTHOR'S ORGANIZ ATION 05/03/2024 [facility] DATE CREATED AUTHOR AUTHOR'S ORGANIZ ATION 04/11/[address] [facility] Scheduled Active and Recently Administ [...] BE BASED ON THE PRIMARY CLINICAL RECORDS. [employer] provides no warranty or guarantee of the accuracy or completeness of information in this document.
--- OUTSIDE RECORDS SUMMARY | 2025-04-29 08:07 | XMS_ITS | Clinical Summary ---
Author Organization [facility] Address [address] [place] [address] Care Team Providers Care Director Of Transportation Name Role Phone Unavailable Primary Care Provider [...] screening mammogram is recommended. Melvi obando/caleb:10/04/2015 16:19:35 Insulation Hoseman: Yoselyn PARHAM(Danny)(M), [facility] letter sent: Normal over 40 Mammogram BI-RADS: 1 Negative Digital Strategist: YESSY Transcribe Date/Time: Oct 04 2015 4:19P Dictated by : MELVI SUAREZ MD This examination was interpreted and the report reviewed and electronically signed by: MELVI SUAREZ MD On Oct 04 2015 4:19PM Principal Transportation Maintenance Operator: MELVI SUAREZ Narrative 10/04/2015 4:20 PM EST * * *Final Report* * * DATE OF EXAM: Oct 03 2015 2:08PM [id number] - MAMMOGRAM DIGITAL SCREENING BRANNON / PROCEDURE REASON: screening * * * * Physician Interpretation * * * * #[id number] - MAMMOGRAM DIGITAL SCREENING BRANNON BILATERAL DIGITAL [...] seen in either breast. us Adrienne Love MEDICAL DELIVERY TECHNICIAN.[facility] Final Result * (ABNORMAL) PAP FLUID CERVICAL SCREENING (09/26/2015 2:33 PM EST) Collection Specialist ADDITIONAL PROCEDURES PRESENT ---Abnormal Pap Test - Epithelial Cell Abnormality--- Specimen originated from [facility] Specimen #: [id number] Submitting Physician: [...] from every slide are reviewed by a ruffler. Lewis Ruiz M.D. (Electronic Signature) ADDITIONAL PROCEDURE(S) HUMAN PAPILLOMA VIRUS Date Ordered: 10/03/2015 Date Reported: 10/07/2015 Procedure Results and Interpretation Negative for HPV High or Intermediate risk types: 16, 18, 31, 33, 35, 39, 45, 51, 52, 58, 59, 68. Low risk HPV types are not detected by this assay. Testing performed by [facility], [address] [place] [address]. CLINICAL DATA ROUTINE EXAM Date of Last Menstrual Period: 09/15/2014 Additional Testing: Reflex HPV testing for ASCUS STAINS A: CERVICAL,SCREENIN G, FLUID THIN PREP WORK CHECKER : 1970 (Age: 45) F Date of Report: 10/03/2015 Date of Procedure: 09/26/2015 Date of Receipt: 09/27/2015 Submitted by: Adrienne Love CNP Location: [facility] Diagnostic interpretation performed at [place] [address]. The Pap Smear is a screening test for cervical cancer. False negative results occur with all screening tests, emphasizing the need for rescreening at recommended intervals, and clinical correlation.(A) [facility] Specimen from uterine cervix (specimen) CERVICAL / Unknown 09/26/2015 2:33 PM EST 09/27/2015 7:44 AM EST Adrienne Love APRN.BENZENE STILL UTILITY OPERATOR CYTOLOGY Edited Misty hassan - Final [facility] [id number] [place] [id number] * (ABNORMAL) BASIC METABOLIC PNL (10/12/2012 11:50 AM EST) Glucose 126(H) 65 - 100 mg/dL [facility] BUN 13 8 - 25 mg/dL [facility] Creatinine 0.46(L) 0.70 - 1.40 mg/dL [facility] Sodium 136 132 - 148 mmol/L [facility] Potassium 3.7 3.5 - 5.0 mmol/L [facility] Chloride 102 98 - 110 mmol/L [facility] CO2 22(L) 23 - 32 mmol/L [facility] Anion Gap 12 0 - 15 mmol/L [facility] Calcium 9.4 8.5 - 10.5 mg/dL [facility] 10/12/2012 11:5 0 AM EST 10/12/2012 12:03 PM EST Reid Ballard MD LABORATORY Final Result Performing Organization Address [facility] Co de Phone Number [facility] [address] [place] [address] from Last 3 Months or Most Recently Relevant to Health Maintenance Insurance [employer] MED[place]
--- OUTSIDE RECORDS SUMMARY | 2025-04-29 08:08 | XMS_ITS | Clinical Summary ---
Author Organization [facility] Address [address] [place] [address] Phone Care Team Providers Care Emr Analyst Name Role Phone Generic Provider, No Assigned [...] MEDICAID [employer] Care Teams Emr Analyst Relationship Specialty Start Date End Date Generic Provider, [place] [address] PCP - General Property Technician 04/26/24
--- OUTSIDE RECORDS SUMMARY | 2025-04-29 08:08 | XMS_ITS | Clinical Summary ---
Author Organization [facility] Address [address] [place] [address] Care Team Providers Care Political Researcher Name Role Phone Unavailable Primary Care Provider [...]
--- NOTE | 2025-04-29 09:29 | PC.NURSE ---
Nursing Note Cardiac Stress Test Reviewed: Medication, allergies and patient history reviewed. Stress Test: [ ] Patient tolerated stress test well. [x ] Patient unable to tolerate walking on treadmill. Switched to Lexiscan stress test. [x ] No chest pain noted per patient [ ] Chest pain that resolved prior to leaving stress lab. [x ] No dyspnea noted. [ ] Dyspnea that resolved prior to leaving stress lab. [ ] Patient left stress lab asymptomatic and hemodynamically stable. [ ] Patient taken to the Emergency Room due to non-resolving symptoms following stress test. [ ] Patient achieved target heart rate. [ ] Patient unable to achieve target heart rate. [x ] Aminophylline administered as reversal agent to Lexiscan (Regadenoson). [ ] Nitro administered. Nursing Comments:Pt attempted TM test but unable to reach target heart rate. Pt switched to Lexiscan and Aminophylline was needed due to pt's BP was dropping and she felt light headed dizzy and nauseas. Pt had headache and still some abdominal pain when test was finished but stated overall she felt better. Pt was taken to cafeteria by wheelchair due to still feeling a little lightheaded. Pt encouraged to eat breakfast and drink coffee to help get rid of the rest of her symptoms. States she understands.
[2025-04-29] MEDS: REGADENOSON 0.4 MG/5 ML SYRINGE IV (09:37)
[2025-04-29] MEDS: AMINOPHYLLINE 250 MG/10 ML VIAL 50 MG IVP (09:37)
--- NOTE | 2025-04-29 15:36 | P.STRESS_ITS ---
Stress Test Stress Test Requesting physician: Juan Washburn Procedure: Lexiscan stress test General Information: Reason for Stress Test: [Chest [pain, shortness of breath] Cardiac History and Risk Factors: [] Resting 12 - Lead Electrocardiogram: Sinus rhythm Non specific ST T wave abnormality Abnormal ECG Stress Test: Protocol: [Lexiscan] Exercise Capacity: [N/A] Blood Pressure Response: [N/A] Rhythm: [Sinus, PVCs] ST - Response: [T wave inversions in V3 to V6] Patient Response: [Low BP, nausea and lightheadedness; aminophylline was admi nistered with resolution of symptoms after 3 minutes] Interpretation: 1. Equivocal T wave changes after Lexiscan infusion 2. Nuclear images to be read, interpreted and reported seperately
== END 2025-04-29 08:01 | disposition home or self-care (01) ==
LOC: NM 08:02
PROVIDERS: PCP Family Medicine; Visit Provider Family Medicine
DX: J20.9 Acute bronchitis, unspecified (principal); R07.9 Chest pain, unspecified
CPT/HCPCS: 78452; 93017; A9500; J0280; J2785